=== PATIENT | male | born 1935 | race Caucasian/White ===

== ENCOUNTER → 2018-09-10 08:30 | Outpatient (CLI) | payer MEDICARE, BC, SELFPAY ==
--- NOTE | 2018-09-10 08:35 | US_ITS ---
US aorta HISTORY: ITS.REASON: ABDOMINAL ANEURYSM 30 TO 34 MM COMPARISON: 04/04/2018 FINDINGS: Focal fusiform dilatation involves the mid abdominal aorta at 3.4 cm maximum AP dimension. There is a moderate amount of plaque present. The aorta then tapers to 2 cm and in dilated once again at 2.8 cm. These dimensions are similar when compared to the previous CT scan. The right common iliac is 1.4 cm and the left common iliac is 0.8 cm. Atheromatous plaque is noted. IMPRESSION: Follow lobular fusiform abdominal aortic aneurysm measuring up to 3.6 cm similar to the CT scan of 04/04/2018. Mild dilatation of the right common iliac.
== END ==
PROVIDERS: PCP Family Medicine; Visit Provider Family Medicine
DX: I71.4 Abdominal aortic aneurysm, without rupture (principal)
CPT/HCPCS: 76770

== ENCOUNTER → 2018-11-04 09:30 | Outpatient (CLI) | payer MEDICARE, BC, SELFPAY ==
--- NOTE | 2018-11-04 09:33 | CA_ITS ---
PROCEDURE: 2-D M-mode and color Doppler study INDICATIONS FOR THE TEST: Chest pain COPD Heart Murmur Tobacco Smoking Palpitations Fatigue Syncope Edema Hypertension+Diabetes Mellitus Rheumatic Fever SOB MADDOX Obesity Hyperlipidemia+ Family History HD Additional History STENT, AFIB, AAA, NH PATIENT INFORMATION HEIGHT: 72 WEIGHT:188 GENDER: Male B/P:145/85 2-D/M-MODE INTERPRETATION: 2-D MEASUREMENTS OBSERVED VALUES IN CMS Right Ventricular Dimension (RVDd) 3.7 Interventricular Septum (Thickness)(IVsd) 1.5 Left Ventricular Internal Dimensions(LVIDd) 3.3 Left Ventricular Posterior Wall (Thickness)(LVPWd) 1.0 Aortic Root 3.5 Aortic Cusp Separation 2.1 Left Atrial Dimensions (LAD) 4.2 2D 1. Left atrium is mildly enlarged, left ventricle is normal size, mild concentric left ventricular hypertrophy, visually estimated ejection fraction 45-50%, there is moderate hypokinesis involving the inferobasal and posterobasal wall. 2. The right atrium is moderately enlarged, right ventricle is mildly dilated with normal contractility. 3. The aortic valve is thickened and calcified leaflet continue to display mobility. 4. The mitral and tricuspid valve leaflets are minimally thickened. 5. The pulmonic valve is poorly visualized. 6. No significant pericardial effusion noted. DOPPLER INTERROGATION: Doppler interrogation of the aortic, mitral and tricuspid valvular presence of mild aortic, mild mitral and tricuspid regurgitation, tricuspid regurgitation jet velocity is inadequate for calculation of the right ventricular systolic pressure, diastolic parameters are inconclusive. CONCLUSION: 1. Biatrial enlargement, normal left ventricular size, mild concentric left ventricular hypertrophy, visually estimated ejection fraction of 45-50% with segmental wall motion abnormality described above, diastolic parameters are inconclusive. 2. Mildly enlarged right ventricle with normal contractility. 3. Mild aortic, mild mitral and tricuspid regurgitation 4. No significant pericardial effusion noted.
[2018-11-04 11:19] LABS: Alanine Aminotransferase 44 U/L (12-78); Albumin Level 3.8 gm/dL (3.4-5.0); Alkaline Phosphatase 132 U/L (46-116); Aspartate Amino Transferase 27 U/L (15-37); Bilirubin,Direct 0.2 mg/dL (0.0-0.2); Bilirubin,Indirect 0.8 mg/dL (0.0-0.9); Chol/HDL Ratio 3.5 (1-3.5); Cholesterol 119 mg/dL (140-200); HDL Cholesterol 34 mg/dL (27-67); LDL Cholesterol 60 mg/dL (0-130); Total Protein,Serum 7.1 gm/dL (6.4-8.2); Triglycerides 126 mg/dL (30-200); VLDL Cholesterol 25 mg/dL (0-40)
== END ==
PROVIDERS: PCP Family Medicine; Visit Provider Internal Medicine
DX: I11.9 Hypertensive heart disease without heart failure (principal); I25.10 Atherosclerotic heart disease of native coronary artery without angina pectoris; I48.2 Chronic atrial fibrillation; I71.4 Abdominal aortic aneurysm, without rupture; Z79.01 Long term (current) use of anticoagulants; Z95.5 Presence of coronary angioplasty implant and graft; E78.5 Hyperlipidemia, unspecified
CPT/HCPCS: 36415; 80061; 80076; 93306

== ENCOUNTER → 2019-02-16 08:53 | Outpatient (POV) | payer MEDICARE, BC, SELFPAY | PROVIDERS: Visit Provider Dermatology | DX: Z00.00 Encounter for general adult medical examination without abnormal findings (principal) ==

== ENCOUNTER → 2019-03-16 10:25 | Outpatient (POV) | payer MEDICARE, BC, SELFPAY | PROVIDERS: Visit Provider Dermatology | DX: Z00.00 Encounter for general adult medical examination without abnormal findings (principal) ==

== ENCOUNTER → 2019-09-29 08:08 | Outpatient (CLI) | payer MEDICARE, BC, SELFPAY ==
--- NOTE | 2019-09-29 08:14 | US_ITS ---
PROCEDURE: US AORTA CLINICAL INDICATION: AAA COMPARISON: AORTA US aorta from 09/10/2018 FINDINGS: There is atherosclerosis with aneurysmal dilatation of the abdominal aorta which measures up to 4.3 centimeters in maximum AP dimension at a level approximately 2 centimeters below the xiphoid process. Renal arteries are not demonstrated with certainty on this exam. A moderate amount of atherosclerotic plaque is seen throughout the aorta. The right common iliac artery measures up to 1.5 centimeters and left common iliac 1.6 centimeter. There is no dissection or retroperitoneal hemorrhage. IMPRESSION: 4.3 centimeter abdominal aortic aneurysm without dissection or leakage. This was reported to be 3.6 centimeters on previous exam. Dictated by: Mo Gomez 09/29/2019 09:58 Electronically signed by Mo Gomez in [place] 09/29/2019 09:58
== END ==
PROVIDERS: PCP Family Medicine; Visit Provider Family Medicine
DX: I71.4 Abdominal aortic aneurysm, without rupture (principal)
CPT/HCPCS: 76770

== ENCOUNTER → 2020-03-24 09:22 | Outpatient (CLI) | payer MEDICARE, BC, SELFPAY ==
[2020-03-25 13:01] LABS: Covid-19 Nasal PCR Sendout Lex Not Detected
== END ==
PROVIDERS: PCP Family Medicine; Visit Provider Nurse Practitioner Family
DX: Z03.818 Encounter for observation for suspected exposure to other biological agents ruled out (principal)
CPT/HCPCS: U0004

== ENCOUNTER 2020-03-25 09:38 | Inpatient (IN) | payer MEDICARE, BC, SELFPAY ==
[2020-03-25] VITALS (10 sets, daily range): BP systolic 109–153; BP diastolic 74–93; PULSE 78–130; RESP 16–20; TEMP 36.6–37.7; O2SAT 93–99; BMI 25.1; BMI 24.6
--- NOTE | 2020-03-25 09:44 | XR_ITS ---
PROCEDURE: XR CHEST PORTABLE Patient Age:84Y CLINICAL HISTORY: WEAKNESS Recent covid test pending COMPARISON: CXR CHEST(2 VIEWS-NOT PORTABLE) from 05/28/2014 CXR CHEST(2 VIEWS-NOT PORTABLE) from 03/01/2016 CT HEAD/BRAIN WO CON from 03/25/2020 FINDINGS: Today's AP supine portable CXR is compared to February 2016 CXR. And May 2014 The heart appears slightly larger on this portable study with suggestion of mild cardiomegaly on today's portable CXR. Perhaps subtle vascular engorgement but appears baseline versus 2014. No overt CHF period no pleural effusions. No pneumothorax. Generous hilar regions bilaterally are are likely stable to previous studies but the right gaurav is slightly denser I believe due to technique. I would suggest a follow-up up upright PA and lateral chest to better evaluate. And to better exclude any developing features at the right suprahilar region. Of question possible very subtle infiltrate at the right suprahilar region on this study Chest wall appears stable in satisfactory. player piano technician leads are in place. Added note ER physician question slight increased interstitial pattern but but I suspect this is baseline for this patient with similar appearance 2013 when technique considered. (Also note that today's slightly generous interstitial pattern and vascularity is much less pronounced than on 2016 CXR) IMPRESSION: . Question/suggestion subtle accentuated markings right suprahilar region-possible early infiltrate here. . Also question slightly denser and more generous right gaurav. .Although these features may merely be due to the vessel slag worker portable supine technique today-I would at least suggest a follow-up upright PA and lateral chest to further evaluate. Likely some mild chronic interstitial changes Borderline/mild cardiomegaly also noted Dictated by: Bakari Roberts MD 03/25/2020 15:14 Electronically signed by Bakari Roberts MD in [place] 03/25/2020 15:14
[2020-03-25 10:22] LABS: Basophils % 0.1 % (0.1-2.0); Eosinophils % 0.2 % (0.1-12.0); Hematocrit 38.8 % (42.0-52.0); Hemoglobin 13.4 g/dL (14.1-18.0); Lymphocytes # 0.9 K/mm3 (0.7-4.5); Lymphocytes % 7.5 % (10-50); Mean Corpuscular HGB Conc 34.6 g/dL (31.8-35.4); Mean Corpuscular Hemoglobin 30.3 pg (27.0-31.2); Mean Corpuscular Volume 87.7 fl (80-94); Mean Platelet Volume 8.4 fl (7.4-10.4); Monocytes # 0.7 K/mm3 (0.1-1.0); Monocytes % 5.9 % (1.7-9.3); Neutrophils # 10.7 K/mm3 (1.8-7.8); Neutrophils % 86.3 % (37.0-80.0); Platelet Count 189 K/mm3 (142-424); Red Blood Count 4.43 M/mm3 (4.60-6.20); Red Cell Distribution Width 15.3 % (11.5-17.5); White Blood Count 12.4 K/mm3 (4.8-10.8)
[2020-03-25 10:24] LABS: MANUAL DIFFERENTIAL MANUAL DIFFERENTIAL (MANUAL DIFF)
--- NOTE | 2020-03-25 10:24 | PC.NURSE ---
Rad at bedside
[2020-03-25 10:26] LABS: Chloride 99 mmol/L (98-107); Potassium 3.8 mmoL/L (3.5-5.1); Sodium 135 mmol/L (136-145)
--- NOTE | 2020-03-25 10:26 | HMH.EDGENADL ---
ED Disposition Clinical Impression: Elevated troponin Rhabdomyolysis Qualifiers: Rhabdomyolysis type: traumatic Encounter type: initial encounter Qualified Code(s): T79.6XXA - Traumatic ischemia of muscle, initial encounter Pneumonia Qualifiers: Pneumonia type: due to unspecified organism Laterality: unspecified laterality Lung location: lower lobe of lung Qualified Code(s): J18.9 - Pneumonia, unspecified organism Disposition: Admitted as Observation Condition on Discharge: Fair - Critical Care Critical Care Time: No Attestation: On 03/25/20, the high probability of a clinically significant, sudden or life threatening deterioration of the following system(s) required my full and direct attention, intervention and personal management. The time I documented below is in addition to time spent performing reported procedures but includes the following listed in this critical care notation. Medical Decision Making - Medical Records Medical records reviewed: Yes: I reviewed the patient's medical records. - Danny Inquiry Pt receiving controlled substance: No Vital Signs: 03/25/20 09:38 03/25/20 10:25 03/25/20 10:45 Temperature 99.7 F H Temperature Source Oral Pulse Rate Pulse Rate [Left Radial] 102 H 107 H 107 H Respiratory Rate 18 Blood Pressure Blood Pressure [Right Radial Artery] 141/79 H 141/78 H 149/89 H Blood Pressure Mean [Right Radial Artery] 99 99 109 Blood Pressure Source [Right Radial Artery] Automatic Cuff Automatic Cuff Blood Pressure Position Blood Pressure Position [Right Radial Artery] Sitting Sitting Sitting 02 Sat by Pulse Oximetry 97 97 99 Oxygen Delivery Method Room Air Room Air Room Air 03/25/20 11:07 03/25/20 11:31 03/25/20 13:06 Temperature Temperature Source Pulse Rate Pulse Rate [Left Radial] 106 H 107 H 100 H Respiratory Rate Blood Pressure Blood Pressure [Right Radial Artery] 148/81 H 153/93 H 109/78 L Blood Pressure Mean [Right Radial Artery] 103 113 88 Blood Pressure Source [Right Radial Artery] Automatic Cuff Automatic Cuff Automatic Cuff Blood Pressure Position Blood Pressure Position [Right Radial Artery] Sitting Sitting Sitting 02 Sat by Pulse Oximetry 94 L 93 L 96 Oxygen Delivery Method Room Air Room Air Room Air 03/25/20 15:05 03/25/20 15:06 Temperature 98.3 F 98 F Temperature Source Oral Oral Pulse Rate 78 Pulse Rate [Left Radial] 111 H Respiratory Rate 17 16 Blood Pressure 123/74 Blood Pressure [Right Radial Artery] 120/75 Blood Pressure Mean [Right Radial Artery] 90 Blood Pressure Source [Right Radial Artery] Automatic Cuff Blood Pressure Position Sitting Blood Pressure Position [Right Radial Artery] Supine 02 Sat by Pulse Oximetry 96 Oxygen Delivery Method Room Air Room Air - Lab Data Lab results reviewed: Yes: I reviewed the patient's lab results. Lab Results 03/25/20 10:00: WBC 12.4 H, RBC 4.43 L, Hgb 13.4 L, Hct 38.8 L, MCV 87.7, MCH 30.3, MCHC 34.6, RDW 15.3, Plt Count 189, MPV 8.4, Neut % (Auto) 86.3 H, Lymph % (Auto) 7.5 L, Webb % (Auto) 5.9, Eos % (Auto) 0.2, Baso % (Auto) 0.1, Neut # (Auto) 10.7 H, Lymph # (Auto) 0.9, Webb # (Auto) 0.7, Eos # (Auto) 0.0, Baso # (Auto) 0.0, Total Counted 100, Neutrophils % (Manual) 88 H, Lymphocytes % (Manual) 10, Monocytes % (Manual) 2, Platelet Estimate Normal, RBC Morphology Normal 03/25/20 10:00: Sodium 135 L, Potassium 3.8, Chloride 99, Carbon Dioxide 27, Anion Gap 12.8, BUN 18, Creatinine 1.10, Estimated Creat Clear 60, Estimated GFR 64, Est GFR ( Amer) 78, Glucose 104 H, Calcium 9.0, Total Bilirubin 1.7 H, AST 201 H, ALT 66, Alkaline Phosphatase 119, Total Creatine Kinase 9109 H*, CK-MB (CK-2) 12.8 H*, Troponin I 0.49 H, Total Protein 6.8, Albumin 3.6, Globulin 3.2, Albumin/Globulin Ratio 1.1 03/25/20 10:00: Lactate 1.7 03/25/20 10:00: SARS-CoV-2 IgG Ab (Rapid) Negative, SARS-CoV-2 IgM Ab (Rapid) Negative 03/25/20 11:45: Chlamy pneumoniae PCR Not detected, Adenovirus
[2020-03-25 10:29] LABS: Alanine Aminotransferase 66 U/L (12-78); Alkaline Phosphatase 119 U/L (38-126); Anion Gap 12.8 mEq/L (5-15); Aspartate Amino Transferase 201 U/L (17-59); Bilirubin,Total 1.7 mg/dl (0.2-1.3); Blood Urea Nitrogen 18 mg/dl (9-20); Carbon Dioxide 27 mmol/L (22.0-30.0); Creatinine Clearance Estimated 60 mL/min (50-200); Estimated Glomerular Filt Rate 64 ml/min (>60); GFR (African American) 78 ML/MIN (>60); Glucose 104 mg/dl (74-100)
[2020-03-25 10:30] LABS: Albumin Level 3.6 g/dl (3.5-5.0); Albumin/Globulin Ratio 1.1 (1.1-1.8); Globulin 3.2 g/dL (1.3-3.2); Lactic Acid 1.7 mmol/L (0.7-2.1); Lymphocytes % 10 % (10-50); Monocytes % 2 % (2-9); Neutrophils % 88 % (42-76); Platelet Estimate Normal; RBC Morphology Normal; Total Cells Counted 100; Total Protein,Serum 6.8 g/dl (6.3-8.2)
--- NOTE | 2020-03-25 10:36 | CT_ITS ---
PROCEDURE: CT HEAD/BRAIN WO CON Patient Age:84Y CLINICAL INDICATION: AMS altered mental status. Memory loss. . Extremity weakness. Generalized weakness COMPARISON: No exams were available for comparison TECHNIQUE: No IV contrast. Standard axial images were obtained. All CT scans at the facility use one or more dose reduction, viz: automated exposure control, ma/kV adjustment per patient size (including targeted exams where dose is matched to indication, i.e. head), or iterative reconstruction technique. . FINDINGS: No acute intracranial findings. No intracranial hemorrhage.. There is diffuse low-density periventricular deep white matter which nonspecific but most likely does reflect chronic small vessel deep white-matter ischemic changes. No territorial infarct. Mild dilatation lateral ventricles reflects the mild cerebral atrophy . basal cisterns appear clear and satisfactory. No mass or midline shift nor mass effect. No subdural or extra-axial fluid collection is evident. Posterior fossa unremarkable. Skull intact- calvarium unremarkable appearance.. There is soft tissue swelling in the scalp overlying the intact left calvarium a could reflect recent soft tissue injury or trauma. Warrants clinical correlation, best seen axial slice 30-33 Nomastoid effusions. Mastoid air cells are well developed and clear. Middle ear clear. IAC's symmetric. Nosinus air-fluid level. Visualized portions of the paranasal sinuses unremarkable. IMPRESSION: No acute intracranial findings . No hemorrhage. No subdural collection . Chronic small vessel deep white-matter ischemic gliotic changes but age-appropriate Soft tissue swelling scalp overlying the left calvarium. Warrants clinical correlation Dictated by: Bakari Roberts MD 03/25/2020 14:05 Electronically signed by Bakari Roberts MD in [place] 03/25/2020 14:05
[2020-03-25 10:42] LABS: Troponin I 0.49 ng/ml (0.00-0.034)
[2020-03-25 10:43] LABS: Creatine Kinase MB 12.8 ng/ml (0.0-2.03)
--- NOTE | 2020-03-25 10:44 | PC.NURSE ---
critical lab values called to Tegan Barton RN
--- NOTE | 2020-03-25 10:47 | ECG_ITS ---
APPROVED REPORT Exam: Resting ECG HR:97 bpm ECG Measurements Heart Rate 97 AXES QRSd 92 QRS 86 QT 358 T 48 QTc 454 <Conclusion> Atrial fibrillation Abnormal ECG Electronically signed by : Juan Carlos Marcelino, 03/25/2020 16:50:52
--- NOTE | 2020-03-25 10:48 | PC.NURSE ---
Pt to rad.
[2020-03-25 10:55] LABS: Creatine Kinase 9109 U/L (55-170)
--- NOTE | 2020-03-25 11:00 | PC.NURSE ---
pt resting quietly. pt alert and oriented x 4.
--- NOTE | 2020-03-25 11:07 | PC.NURSE ---
Pt returned from rad.
[2020-03-25 11:22] LABS: Coronavirus 19 IgG Antibody Negative (Negative); Coronavirus 19 IgM Antibody Negative (Negative)
--- NOTE | 2020-03-25 11:32 | PC.NURSE ---
paging dr son
--- NOTE | 2020-03-25 11:50 | PC.NURSE ---
dr dubois paged.
[2020-03-25 11:53] LABS: Adenovirus,PCR Not Detected (NotDetected); Bordetella Pertussis Not Detected (NotDetected); Chlamydophila Pneumoniae, PCR Not Detected (NotDetected); Coronavirus 19, PCR Not Detected (NotDetected); Coronavirus 229E Not Detected (NotDetected); Coronavirus NL63 Not Detected (NotDetected); Coronavirus OC43 Not Detected (NotDetected); Coronovirus HKU1,PCR Not Detected (NotDetected); Human Metapneumovirus Not Detected (NotDetected); Influenza A, PCR Not Detected (NotDetected); Influenza AH1, 2009 Not Detected (NotDetected); Influenza AH1, PCR Not Detected (NotDetected); Influenza AH3,PCR Not Detected (NotDetected); Influenza B, PCR Not Detected (NotDetected); Mycoplasma Pneumoniae, PCR Not Detected (NotDected); Parainfluenza 1, PCR Not Detected (NotDetected); Parainfluenza 2, PCR Not Detected (NotDetected); Parainfluenza 3, PCR Not Detected (NotDetected); Parainfluenza 4, PCR Not Detected (NotDetected); Respiratory Syncytial Virus Not Detected (NotDetected); Rhinovirus/Enterovirus Not Detected (NotDetected)
--- NOTE | 2020-03-25 11:58 | PC.NURSE ---
Ivan returned call.
--- NOTE | 2020-03-25 12:07 | PC.NURSE ---
Pt to be admitted but pending COVID testing.
--- NOTE | 2020-03-25 12:09 | PC.NURSE ---
Per registration pt is a . [facility] will call at this time.
--- NOTE | 2020-03-25 12:46 | PC.NURSE ---
Spoke with [place] national line Reference # [id number]. Per sanforizing machine operator a fax would be sent to us to fill out and send back to them.
--- NOTE | 2020-03-25 14:19 | PC.NURSE ---
Spoke with [place] national hotline again, spoke with Darell who stated that she was able to get an authorization number for pt to be admitted here. Auth # [id number]
[2020-03-25 14:21] LABS: Troponin I 0.37 ng/ml (0.00-0.034)
--- NOTE | 2020-03-25 14:37 | PC.NURSE ---
REPORT CALLED TO FLOOR
--- NOTE | 2020-03-25 15:58 | PC.NURSE ---
pt and family unsure of medications. wrong bottles were brought in by family. jaimie daleD aware and told family to bring other meds in am.
--- NOTE | 2020-03-25 17:31 | PC.NURSE ---
pt has done well since admit to floor. pt is tachy with afib on monitor, pt baseline since arrival to hospital & EKG. pt still feels weak and unsteady on his feet. staff stood pt up to help assist him in a bath and bed change. pt educated on use of call light, verbalized understanding and has shown appropriate use thus far. bed alarm is on. vss. will cont. to monitor.
--- NOTE | 2020-03-25 19:02 | PC.NURSE ---
paged at [phone].
--- NOTE | 2020-03-25 19:11 | HMH.HP ---
*Admission Date: 03/25/20 *Chief complaint: Fall at home with obtundation *History of present illness: 84-year-old white male who was found by his son this morning having fallen at home and was somewhat obtunded. He was brought to the emergency department. Son reports that he was fine over the last couple of days, but has been a little more active recently. In the emergency department he was found to have evidence of rhabdomyolysis with markedly elevated CPK, elevated troponin levels which were felt to be a sequela of the above-noted rhabdomyolysis, and acute kidney injury. He was also found to have evidence of pneumonia with shadowing on chest x-ray but not a definitive test given its portable status. He was admitted for IV fluids, further diagnostic testing, supportive care and IV antibiotics. [facility] History I have reviewed the patient's past medical history: Yes Medical History: Reports:: Atrial Fibrillation, Coronary Artery Disease, Hyperlipidemia, Hypertension, Myocardial Infarction Denies:: Cancer, Diabetes Mellitus Type 1, Diabetes Mellitus Type 2, MRSA *Have you ever received a pneumonia vaccine?: Yes *Have you received a flu vaccine this season?: Yes Other Medical History: Reports: Cataracts Other Surgeries: Yes: Angioplasty, Cancer Surgery, Cardiac Surgery, Coronary Stent, Skin Cancer Excision, Other Amputation: No Fractures: No - *Social History Smoking Status: Former smoker Tobacco Type: cigarettes Alcohol Intake: never Alcohol Intake Frequency:: other Substance Use Type: denies use *Occupational Status:: retired Housing: house Household Members: other *Travel in the last 8 weeks: None Family Hx:: Cancer, Coronary Artery Disease, Heart Attack, Hypertension Review of Systems - Review of Systems Review of systems:: pertinent systems reviewed and negative unless documented below Review of systems is somewhat difficult because of patient's hard of hearing status, but he reports that he feels much better. Still admits to some weakness and dizziness when he stands up. Specifically denies dyspnea, chest pain, palpitations, edema, GI symptomatology or urine symptomatology. - *Neurologic Reports confusion, Denies localized weakness, Denies headache(s) Meds Home Medications Medication Instructions Recorded Confirmed Type levothyroxine 50 mcg capsule 50 mcg PO QDAY cap 10/08/17 03/25/20 History nitroglycerin 0.4 mg sublingual 0.4 mg SUBLINGUAL Q5M PRN 10/08/17 03/25/20 History tablet potassium chloride 20 mEq 20 meq PO QDAY 10/08/17 03/25/20 History tablet,extended release klnxxivrefvo-kmrapfnx-xeavgh 1 tab PO DAILY 04/28/18 03/25/20 History vitamins A,C,Q-jlvl-dswsaa 14,320 1 cap PO DAILY 04/28/18 03/25/20 History unit-226 mg-200 unit capsule loratadine 10 mg tablet 10 mg PO DAILY 10/27/18 03/25/20 History diltiazem HCl 120 mg 120 mg PO DAILY #90 cap 08/30/19 03/25/20 Rx capsule,extended release 24 hr clopidogrel 75 mg tablet 75 mg PO QDAY #90 tab 11/02/19 03/25/20 Rx bisoprolol fumarate 10 mg tablet 10 mg PO QDAY #90 tab 03/20/20 03/25/20 Rx Atorvastatin Calcium [Lipitor 40mg 40 mg PO DAILY 03/25/20 03/25/20 History Tab] Rivaroxaban [Xarelto 20mg Tablet*] 20 mg PO .with supper 03/25/20 03/25/20 History Allergies Allergy/AdvReac Type Severity Reaction Status Date / Time No Known Allergies Allergy Verified 10/27/19 09:51 Exam Vital signs and Labs for Last 24 Hours: Temp Pulse Resp BP Pulse Ox 98 F 100 H 16 123/74 96 03/25/20 15:06 03/25/20 16:00 03/25/20 15:06 03/25/20 15:06 03/25/20 15:05 Laboratory Results - last 24 hr 03/25/20 10:00: WBC 12.4 H, RBC 4.43 L, Hgb 13.4 L, Hct 38.8 L, MCV 87.7, MCH 30.3, MCHC 34.6, RDW 15.3, Plt Count 189, MPV 8.4, Neut % (Auto) 86.3 H, Lymph % (Auto) 7.5 L, Scre[place] % (Auto) 5.9, Eos % (Auto) 0.2, Baso % (Auto) 0.1, Neut # (Auto) 10.7 H, Lymph # (Auto) 0.9, Screven # (Auto) 0.7, Eos # (Auto) 0.0, Baso # (Auto) 0.0, Total Counted 100, Ne
[2020-03-26] VITALS (11 sets, daily range): BP systolic 136–158; BP diastolic 80–87; PULSE 66–136; RESP 17–21; TEMP 36.8–37.7; O2SAT 90–97; BMI 25.1
--- NOTE | 2020-03-26 02:08 | PC.NURSE ---
He is A&Ox3. Atrial fibrillation on telemetry. He has 2 hearing aids and glasses on his bedside table. He is [place]. He refused a snack. He refused a bath stating that he had one on day shift. Denies pain. Denies SPA. He reports that he can walk but states he loses his balance. He has not been out of bed. His urine is lisa, cloudy. He voids per urinal. Urine sent to lab.
[2020-03-26 02:18] LABS: Microscopic, Urine URINE MICROSCOPIC (MICROSCOPIC)
[2020-03-26 02:21] LABS: Appearance,Urine CLOUDY (Clear); Bilirubin,Urine Negative (Negative); Blood, Urine 3+ (Negative); Color,Urine YELLOW (Yellow); Glucose,Urine (UA) Negative (Negative); Ketones,Urine TRACE (Negative); Leukocyte Esterase,Urine Negative (Negative); Nitrate,Urine Negative (Negative); PH,Urine 5.5 (5.0-8.5); Protein,Urine 2+ (Negative); Specific Gravity, Urine >= 1.030 (1.005-1.030); Urobilinogen,Urine 0.2 EU/dl (0.2)
[2020-03-26 02:24] LABS: Amorphous Sediment,Urine 2+ /lpf; Fine Granular Casts,Urine Occasional #/lpf (0); RBC,Urine 20-50 #/hpf (0-3); Uric Acid Crystals,Urine 2+ /lpf
[2020-03-26 06:18] LABS: Hematocrit 35.5 % (42.0-52.0); Lymphocytes % 9.2 % (10-50); Mean Corpuscular HGB Conc 32.6 g/dL (31.8-35.4); Mean Corpuscular Hemoglobin 29.6 pg (27.0-31.2); Mean Corpuscular Volume 90.6 fl (80-94); Mean Platelet Volume 8.4 fl (7.4-10.4); Monocytes # 0.5 K/mm3 (0.1-1.0); Monocytes % 4.7 % (1.7-9.3); Neutrophils # 8.8 K/mm3 (1.8-7.8); Platelet Count 161 K/mm3 (142-424); Red Blood Count 3.92 M/mm3 (4.60-6.20); Red Cell Distribution Width 15.5 % (11.5-17.5); White Blood Count 10.3 K/mm3 (4.8-10.8)
[2020-03-26 06:19] LABS: Hemoglobin 11.6 g/dL (14.1-18.0)
[2020-03-26 06:20] LABS: MANUAL DIFFERENTIAL MANUAL DIFFERENTIAL (MANUAL DIFF)
[2020-03-26 06:36] LABS: Lymphocytes % 5 % (10-50); Monocytes % 1 % (2-9); Neutrophils % 85 % (42-76); Platelet Estimate Normal; RBC Morphology Normal; Rouleaux 2+; Total Cells Counted 100
[2020-03-26 06:38] LABS: Alanine Aminotransferase 81 U/L (12-78); Albumin Level 2.7 g/dl (3.5-5.0); Alkaline Phosphatase 126 U/L (38-126); Aspartate Amino Transferase 205 U/L (17-59); Bilirubin,Total 1.1 mg/dl (0.2-1.3); Blood Urea Nitrogen 19 mg/dl (9-20); Carbon Dioxide 24 mmol/L (22.0-30.0); Chloride 104 mmol/L (98-107); Creatinine Clearance Estimated 68 mL/min (50-200); Estimated Glomerular Filt Rate 93 ml/min (>60); GFR (African American) 112 ML/MIN (>60); Globulin 2.6 g/dL (1.3-3.2); Glucose 108 mg/dl (74-100); Sodium 135 mmol/L (136-145); Total Protein,Serum 5.3 g/dl (6.3-8.2)
[2020-03-26 06:41] LABS: Anion Gap 10.4 mEq/L (5-15); Potassium 3.4 mmoL/L (3.5-5.1)
[2020-03-26 06:48] LABS: Creatine Kinase MB 5.1 ng/ml (0.0-2.03)
[2020-03-26 06:52] LABS: Troponin I 0.15 ng/ml (0.00-0.034)
--- NOTE | 2020-03-26 07:00 | XR_ITS ---
PROCEDURE: XR CHEST 2V CLINICAL HISTORY: f/u portable exam COMPARISON: CXR CHEST(2 VIEWS-NOT PORTABLE) from 05/28/2014 CXR CHEST(2 VIEWS-NOT PORTABLE) from 03/01/2016 XR CHEST PORTABLE from 03/25/2020 FINDINGS: The lung tate are fairly well expanded. There is an ill-defined opacity in the right infrahilar region extending into the right lower lobe primarily posterior basilar segment consistent with acute pneumonia. There are some subtle nodular opacities in the left infrahilar region and left lower lobe. There is blunting of the right costophrenic angle and I suspect a small right pleural effusion. There is mild generalized cardiomegaly but there is no obvious pulmonary congestion. IMPRESSION: New finding of right infrahilar right lower lobe pneumonia with questionable left lower lobe involvement. Generalized cardiomegaly without obvious congestive failure identified. Dictated by: Dr. Andrew Cuevas MD 03/26/2020 09:[address] Andrew Cuevas MD in [place] 03/26/2020 09:13
[2020-03-26 07:05] LABS: Calcium 7.7 mg/dl (8.4-10.2)
[2020-03-26 07:39] LABS: CKMB Relative Index 0.1 U/L (0-4.0); Creatine Kinase 5738 U/L (55-170)
--- NOTE | 2020-03-26 07:58 | HMH.ACPN2 ---
Internal Medicine - PN: Subj *Date: 03/26/20 *Time: 07:58 Interval history: Patient states that he feels much better and my strength is coming back. Exam Vital signs and Labs for Last 24 Hours: Temp Pulse Resp BP Pulse Ox 98.5 F 116 H 20 136/84 90 L 03/26/20 04:45 03/26/20 04:45 03/26/20 04:45 03/26/20 04:45 03/26/20 04:45 Laboratory Results - last 24 hr 03/25/20 10:00: WBC 12.4 H, RBC 4.43 L, Hgb 13.4 L, Hct 38.8 L, MCV 87.7, MCH 30.3, MCHC 34.6, RDW 15.3, Plt Count 189, MPV 8.4, Neut % (Auto) 86.3 H, Lymph % (Auto) 7.5 L, Crisp % (Auto) 5.9, Eos % (Auto) 0.2, Baso % (Auto) 0.1, Neut # (Auto) 10.7 H, Lymph # (Auto) 0.9, Crisp # (Auto) 0.7, Eos # (Auto) 0.0, Baso # (Auto) 0.0, Total Counted 100, Neutrophils % (Manual) 88 H, Lymphocytes % (Manual) 10, Monocytes % (Manual) 2, Platelet Estimate Normal, RBC Morphology Normal 03/25/20 10:00: Sodium 135 L, Potassium 3.8, Chloride 99, Carbon Dioxide 27, Anion Gap 12.8, BUN 18, Creatinine 1.10, Estimated Creat Clear 60, Estimated GFR 64, Est GFR ( Amer) 78, Glucose 104 H, Calcium 9.0, Total Bilirubin 1.7 H, AST 201 H, ALT 66, Alkaline Phosphatase 119, Total Creatine Kinase 9109 H*, CK-MB (CK-2) 12.8 H*, Troponin I 0.49 H, Total Protein 6.8, Albumin 3.6, Globulin 3.2, Albumin/Globulin Ratio 1.1 03/25/20 10:00: Lactate 1.7 03/25/20 10:00: SARS-CoV-2 IgG Ab (Rapid) Negative, SARS-CoV-2 IgM Ab (Rapid) Negative 03/25/20 11:45: Chlamy pneumoniae PCR Not detected, Adenovirus (PCR) Not detected, B. pertussis DNA (PCR) Not detected, Coronavirus OC43 (PCR) Not detected, Coronavirus HKU1 (PCR) Not detected, Coronavirus 229E (PCR) Not detected, COVID-19 PCR Not detected, Coronavirus NL63 (PCR) Not detected, Human Metapneumovir PCR Not detected, Influenza A (H1) PCR Not detected, Influ A (H1N1/09) PCR Not detected, Influenza A (H3) PCR Not detected, Influenza Type A (PCR) Not detected, Influenza Type B (PCR) Not detected, M. pneumoniae (PCR) Not detected, Parainfluenza 1 (PCR) Not detected, Parainfluenza 2 (PCR) Not detected, Parainfluenza 3 (PCR) Not detected, Parainfluenza 4 (PCR) Not detected, RSV (PCR) Not detected, Entero/Rhino (PCR) Not detected 03/25/20 13:44: Troponin I 0.37 H 03/25/20 20:28: Urine Color Yellow, Urine Appearance Cloudy, Urine pH 5.5, Ur Specific [place] >= 1.030, Urine Protein 2+, Urine Glucose (UA) Negative, Urine Ketones Trace, Urine Blood 3+, Urine Nitrate Negative, Urine Bilirubin Negative, Urine Urobilinogen 0.2, Ur Leukocyte Esterase Negative, Urine RBC 20-50, Uric Acid Crystals 2+, Amorphous Sediment 2+, Fine Granular Casts Occasional, Coarse Granular Casts 5-10 03/26/20 05:50: WBC 10.3, RBC 3.92 L, Hgb 11.6 L D, Hct 35.5 L, MCV 90.6, MCH 29.6, MCHC 32.6, RDW 15.5, Plt Count 161, MPV 8.4, Neut % (Auto) 86.0 H, Lymph % (Auto) 9.2 L, Crisp % (Auto) 4.7, Eos % (Auto) 0.0 L, Baso % (Auto) 0.0 L, Neut # (Auto) 8.8 H, Lymph # (Auto) 1.0, Crisp # (Auto) 0.5, Eos # (Auto) 0.0, Baso # (Auto) 0.0, Total Counted 100, Neutrophils % (Manual) 85 H, Band Neutrophils % 9.0 H, Lymphocytes % (Manual) 5 L, Monocytes % (Manual) 1 L, Platelet Estimate Normal, RBC Morphology Normal, Rouleaux 2+ 03/26/20 05:50: Sodium 135 L, Potassium 3.4 L, Chloride 104, Carbon Dioxide 24, Anion Gap 10.4, BUN 19, Creatinine 0.80 D, Estimated Creat Clear 68, Estimated GFR 93, Est GFR ( Amer) 112 D, Glucose 108 H, Calcium 7.7 L D, Total Bilirubin 1.1, AST 205 H, ALT 81 H, Alkaline Phosphatase 126, Total Creatine Kinase 5738 H* D, CK-MB (CK-2) 5.1 H D, CK-MB (CK-2) Rel Index 0.1, Troponin I 0.15 H, Total Protein 5.3 L, Albumin 2.7 L D, Globulin 2.6, Albumin/Globulin Ratio 1.0 L I & O for Last 24 hours: Intake & Output 03/23/20 03/24/20 03/25/20 03/26/20 11:59 11:59 11:59 11:59 Intake Total 3134 / 3134 Output Total 715 / 715 Balance 2419 / 2419 Weight 180 lb 185 lb 9.6 oz Narrative: Pleasant, alert, eating breakfast well. Has some audible expiratory wheezes, new since last night, how
--- NOTE | 2020-03-26 11:31 | HMH.PTEV ---
Physical Therapy Evaluation Rehab PT IP Evaluation Start: 03/26/20 07:57 Freq: ONCE Status: Active Protocol: Document 03/26/20 11:09 [email or web address] (Rec: 03/26/20 11:31 [email or web address] [id number]) Subjective/History History History Pt.'s son(Abdias) was present during Physical Therapy IP evaluation, pt.'s son helped vocalized answers to questions asked by PT d/t auditory impairment. Pt. is a 84 year old male w/ complaints of wheezing since being admitted to the ER. Pt. reports being found by son after lying on the floor of his house for 12 hours prior to ER admittance. Pt. reports he got on his floor to look for his hearing aid, but states he was too weak to stand back up. Pt. reports living alone in a 1- story home(w/ assistance of his two children that live close by), independent w/ ADLs , and walking 2 miles everyday prior to ER admittance. Pt. denies owning AD including FWW , SPC, shower/toilet chair, and denies having steps on the inside, but reports having stairs off the back deck outside. PMH inludes angioplasty, cancer surgery, cardiac surgery, coronary stent, skin cancer excision, atrial fibrillation, coronary artery disease, hyperlipidemia , hypertension, and a myocardial Infarction. See history/physical progress note for current list of medication. Subjective Subjective Pt. states I've been feeling a lot better. Pt. also reports no complaints of P!, but states I've been wheezing a lot. Rehab PT IP Eval Objective Appearance Patient Behavior Appropriate,Cooperative, Anxious,Fatigued P
--- NOTE | 2020-03-26 11:37 | P.CONPHA_ITS ---
[facility] Pharmacy VTE Monitoring - Patient Demographics Admission date: 03/26/20 Report Date: 03/26/20 Time: 11:37 Allergies/Adverse Reactions: Patient Allergies No Known Allergies Allergy (Verified 10/27/19 09:51) Height: 1.83 m Weight: 84.187 kg Patient Problems: Current Active Problems Rhabdomyolysis (Acute) Elevated troponin (Acute) Pneumonia (Acute) Wheezing (Acute) Fall at home (Acute) - VTE Risk Labs: VTE Related Lab Results Hgb 11.6 g/dL (14.1-18.0) L D 03/26/20 05:50 Hct 35.5 % (42.0-52.0) L 03/26/20 05:50 Plt Count 161 K/mm3 (142-424) 03/26/20 05:50 BUN 19 mg/dl (9-20) 03/26/20 05:50 Creatinine 0.80 mg/dl (0.66-1.25) D 03/26/20 05:50 Estimated Creat Clear 68 mL/min (50-200) 03/26/20 05:50 VTE Score: 5 VTE Risk Level: Low Risk - Prophylaxis Types of VTE Prophylaxis: Pharmacological (XARELTO REORDERED) Location of Applied Device: Not Applicable
[2020-03-27] VITALS (10 sets, daily range): BP systolic 123–149; BP diastolic 61–100; PULSE 84–114; RESP 16–18; TEMP 36.5–37; O2SAT 90–94; BMI 25.9
--- NOTE | 2020-03-27 03:51 | PC.NURSE ---
A&OX3. NAVAJO. STOCK BROKER EQUAL BILAT. LUNGS NOTED WITH WHEEZING PER AUSCULTATION. DRY COUGH NOTED THIS SHIFT. TOLERATED RA WELL. PULSES +2, CAP REFILL < 3 SEC. AFIB NOTED PER TITLE DEPARTMENT MANAGER. TYLENOL ADMINISTERED PER NOV TEMP NOTED 99.3 AND TACHYCARDIA AT BEGINNING OF SHIFT. ON REASSESSMENT TEMP DECREASED TO WNL AND HR WNL. ABDOMEN NOTED NONDISTENDED, ACTIVE BOWEL SOUNDS IN ALL QUADS, SOFT AND NONTENDER PER PALPATION. ASSIST X1 WITH AMBULATION/ TRANSFERS, TOLERATED WELL. PT REPORTED C/O NAUSEA AND ADMINISTERED ZOFRAN PER NOV, WILL REASSESS EFFECTIVENESS OF ZOFRAN. VSS. WILL CONTINUE TO MONITOR.
[2020-03-27 05:57] LABS: Basophils % 0.1 % (0.1-2.0); Eosinophils % 0.1 % (0.1-12.0); Hematocrit 33.3 % (42.0-52.0); Hemoglobin 11.6 g/dL (14.1-18.0); Lymphocytes # 0.9 K/mm3 (0.7-4.5); Lymphocytes % 10.9 % (10-50); Mean Corpuscular HGB Conc 34.7 g/dL (31.8-35.4); Mean Corpuscular Hemoglobin 29.8 pg (27.0-31.2); Mean Corpuscular Volume 85.7 fl (80-94); Mean Platelet Volume 8.5 fl (7.4-10.4); Monocytes # 0.5 K/mm3 (0.1-1.0); Monocytes % 5.4 % (1.7-9.3); Neutrophils % 83.5 % (37.0-80.0); Platelet Count 164 K/mm3 (142-424); Red Blood Count 3.89 M/mm3 (4.60-6.20); Red Cell Distribution Width 15.6 % (11.5-17.5); White Blood Count 8.4 K/mm3 (4.8-10.8)
[2020-03-27 06:06] LABS: Chloride 105 mmol/L (98-107); Potassium 3.3 mmoL/L (3.5-5.1); Sodium 135 mmol/L (136-145)
[2020-03-27 06:09] LABS: Alanine Aminotransferase 93 U/L (12-78); Alkaline Phosphatase 108 U/L (38-126); Anion Gap 11.3 mEq/L (5-15); Aspartate Amino Transferase 155 U/L (17-59); Bilirubin,Total 0.8 mg/dl (0.2-1.3); Blood Urea Nitrogen 18 mg/dl (9-20); Calcium 7.8 mg/dl (8.4-10.2); Carbon Dioxide 22 mmol/L (22.0-30.0); Creatinine Clearance Estimated 70 mL/min (50-200); Estimated Glomerular Filt Rate 108 ml/min (>60); GFR (African American) 131 ML/MIN (>60); Glucose 115 mg/dl (74-100)
[2020-03-27 06:10] LABS: Albumin Level 2.7 g/dl (3.5-5.0); Globulin 2.8 g/dL (1.3-3.2); Total Protein,Serum 5.5 g/dl (6.3-8.2)
--- NOTE | 2020-03-27 06:17 | PC.NURSE ---
PA. TORRES NOTIFIED OF CONSULT.
[2020-03-27 06:20] LABS: Creatine Kinase 2593 U/L (55-170)
--- NOTE | 2020-03-27 06:40 | PC.NURSE ---
URINE NOTED DARK YELLOW AND CLEAR. VOIDED PER URINAL.
--- NOTE | 2020-03-27 07:20 | P.PN_ITS ---
Internal Medicine - PN: Subj *Date: 03/27/20 *Time: 07:20 Interval history: Patient reports feeling better this morning. He continues to have wheezing and coughing. He denies shortness of breath this morning or chest pain. Nursing staff reports a 6 pound weight gain over the last 24 hours. Exam Vital signs and Labs for Last 24 Hours: Temp Pulse Resp BP Pulse Ox 98.6 F 104 H 18 149/61 H 91 L 03/27/20 04:20 03/27/20 05:51 03/27/20 04:20 03/27/20 04:20 03/27/20 04:20 Laboratory Results - last 24 hr 03/26/20 05:50: Total Creatine Kinase 5738 H* D, CK-MB (CK-2) Rel Index 0.1 03/27/20 05:44: WBC 8.4, RBC 3.89 L, Hgb 11.6 L, Hct 33.3 L, MCV 85.7, MCH 29.8, MCHC 34.7, RDW 15.6, Plt Count 164, MPV 8.5, Neut % (Auto) 83.5 H, Lymph % (Auto) 10.9, Johnson % (Auto) 5.4, Eos % (Auto) 0.1, Baso % (Auto) 0.1, Neut # (Auto) 7.0, Lymph # (Auto) 0.9, Johnson # (Auto) 0.5, Eos # (Auto) 0.0, Baso # (Auto) 0.0 03/27/20 05:44: Sodium 135 L, Potassium 3.3 L, Chloride 105, Carbon Dioxide 22, Anion Gap 11.3, BUN 18, Creatinine 0.70, Estimated Creat Clear 70, Estimated GFR 108, Est GFR ( Amer) 131, Glucose 115 H, Calcium 7.8 L, Total Bilirubin 0.8, AST 155 H, ALT 93 H, Alkaline Phosphatase 108, Total Creatine Kinase 2593 H* D, Total Protein 5.5 L, Albumin 2.7 L, Globulin 2.8, Albumin/Globulin Ratio 1.0 L I & O for Last 24 hours: Intake & Output 03/24/20 03/25/20 03/26/20 03/27/20 11:59 11:59 11:59 11:59 Intake Total 3494 / 3494 1909 / 1909 Output Total 715 / 715 650 / 650 Balance 2779 / 2779 1260 / 1260 Weight 180 lb 185 lb 9.6 oz 191 lb 8 oz Narrative: Patient looks comfortable but has an expiratory wheeze that can be heard standing at bedside. Heart rate is irregular. Lungs have expiratory wheezes and rales in the right base. Abdomen is soft. Assessment and Plan (1) Rhabdomyolysis Current visit: Yes Status: Acute Qualifiers: Rhabdomyolysis type: traumatic Encounter type: initial encounter Qualified Code(s): T79.6XXA - Traumatic ischemia of muscle, initial encounter Category: Medical Code(s): M62.82 - Rhabdomyolysis Continue IV fluids for additional 24 hours (2) Pneumonia Current visit: Yes Status: Acute Qualifiers: Pneumonia type: due to unspecified organism Laterality: unspecified laterality Lung location: lower lobe of lung Qualified Code(s): J18.9 - Pneumonia, unspecified organism Category: Medical Code(s): J18.9 - Pneumonia, unspecified organism Continue IV antibiotics and aerosols (3) Elevated troponin Current visit: Yes Status: Acute Category: Medical Code(s): R79.89 - Other specified abnormal findings of blood chemistry Cardiology consult (4) Chronic atrial fibrillation Current visit: No Status: Acute Category: Medical Code(s): I48.2 - Chronic atrial fibrillation (5) Wheezing Current visit: Yes Status: Acute Category: Medical Code(s): R06.2 - Wheezing (6) Fall at home Current visit: Yes Status: Acute Category: Medical Code(s): W19.XXXA - Unspecified fall, initial encounter; Y92.009 - Unspecified place in unspecified non-institutional (private) residence as the place of occurrence of the external cause
--- NOTE | 2020-03-27 10:33 | HMH.CNCARD ---
History of Present Illness Consult date: 03/27/20 Requesting physician: Juan Carlos Vargas Chief complaint: Weakness Additional Medical History:: 1. HTN A. Echo, 10/2018 1. Left atrium is mildly enlarged, left ventricle is normal size, mild concentric left ventricular hypertrophy, visually estimated ejection fraction 45-50%, there is moderate hypokinesis involving the inferobasal and posterobasal wall. 2. The right atrium is moderately enlarged, right ventricle is mildly dilated with normal contractility. 3. The aortic valve is thickened and calcified leaflet continue to display mobility. 4. The mitral and tricuspid valve leaflets are minimally thickened. 5. The pulmonic valve is poorly visualized. 6. No significant pericardial effusion noted. DOPPLER INTERROGATION: Doppler interrogation of the aortic, mitral and tricuspid valvular presence of mild aortic, mild mitral and tricuspid regurgitation, tricuspid regurgitation jet velocity is inadequate for calculation of the right ventricular systolic pressure, diastolic parameters are inconclusive. CONCLUSION: 1. Biatrial enlargement, normal left ventricular size, mild concentric left ventricular hypertrophy, visually estimated ejection fraction of 45-50% with segmental wall motion abnormality described above, diastolic parameters are inconclusive. 2. Mildly enlarged right ventricle with normal contractility. 3. Mild aortic, mild mitral and tricuspid regurgitation 4. No significant pericardial effusion noted. 2. Coronary artery disease A. Non-ST elevation [place], 02/2016 B. C, 02/2016, ANGIOGRAPHIC RESULTS: 1. The left main artery normal 2. The left anterior descending artery has a critical proximal to mid vessel focal stenosis. KALA II flow down the LAD 3. The circumflex artery is a dominant vessel and has mild 30% proximal mid vessel stenoses. The terminal obtuse marginal artery which supplies the posterior descending artery has sequential 50 and 60% nonflow limiting stenoses 4. The right coronary artery is a small nondominant vessel and normal 5. The WELCH ventriculogram reveals normal ejection fraction 65% 6. The left ventricular end-diastolic pressure less than 10 mmHg IMPRESSION: 1. Critical proximal and mid vessel LAD disease with KALA II flow down the vessel 2. Normal ejection fraction 3. Normal left ventricular end-diastolic pressure 4. Moderate nonflow limiting disease in the terminal obtuse marginal artery supplying the posterior descending artery PLAN: 1. Brilinta and aspirin will be given now 2. Lovenox 1 mg/kg 3. Emergent transfer to [place] for stenting of the LAD today C. LUPE to LAD, 02/2016, [facility], chronic Plavix therapy 3. Chronic atrial fibrillation, on Xarelto therapy 4. Abdominal aortic aneurysm, 4.3 cm, 09/2019, continue to follow per Dr. Velazco at [place], [place] 5. Hyperlipidemia 6. Hypertension History of present illness: 84-year-old white male who was found by his son this morning having fallen at home and was somewhat obtunded. He was brought to the emergency department. Son reports that he was fine over the last couple of days, but has been a little more active recently. In the emergency department he was found to have evidence of rhabdomyolysis with markedly elevated CPK, elevated troponin levels which were felt to be a sequela of the above-noted rhabdomyolysis, and acute kidney injury. He was also found to have evidence of pneumonia with shadowing on chest x-ray but not a definitive test given its portable status. He was admitted for IV fluids, further diagnostic testing, supportive care and IV antibiotics. The above per Dr. Marcelino (covering for Dr. Vargas) Patient relates some shortness of breath last week for which he reports going to Dr. Vargas's office and seeing 1 of his midlevel providers and being started on antibiotics for suspected bronchitis/pneumonia. Patient took the first do
--- NOTE | 2020-03-27 10:52 | CA_ITS ---
APPROVED REPORT EXAM: Comprehensive 2D, Doppler, and color-flow Echocardiogram Sheet Tailer: Estrella Valle RDCS Ht: 5 ft 11 in Wt: 181lbs BSA: 2.02 BP: 149/99 mmHg Indications: AF TX CAD HTN HLP 2D Dimensions LVOT 2.12 cm (M/F) 1.5-2.5 M-Mode Dimensions RVDd 2.77 cm (0.9-2.6) LVDd 5.33 cm (3.5-5.7) LVDs 4.62 cm (3.5-5.7) IVSd 0.99 cm (0.6-1.1) PWd 0.68 cm (0.6-1.1) EF (Teich) 28.30% FS 13.30% EDV (Teich) 137.10 mL ESV (Teich) 98.30 mL Aortic Valve LVOT Max 80.00 (70-110 cm/s) LVOT VTI 12.29 cm Left Ventricle Technically difficult study because of the patient factors and poor acoustic windows. Left atrium is mildly enlarged, left ventricle is normal size, mild concentric left ventricular hypertrophy, visually estimated ejection fraction 50% with no obvious regional wall motion abnormality, endocardial surfaces are poorly visualized. Diastolic parameters are inconclusive. Right Ventricle Right atrium and right ventricle are mildly enlarged with normal contractility. Aortic Valve Aortic valve is thickened and calcified, there is no aortic stenosis, there is mild aortic insufficiency. Mitral Valve Mitral valve is minimally thickened, there is mild mitral regurgitation. Tricuspid Valve Tricuspid valve is grossly normal, there is mild tricuspid regurgitation, calculated right ventricular systolic pressure is 52 mmHg. Pulmonic Valve Pulmonic valve is poorly visualized. Great Vessels Aortic root is normal size. Pericardium No significant pericardial effusion noted. Conclusion 1. Technically difficult study because of the patient's factors and poor acoustic windows. 2. Mild biatrial enlargement, normal left ventricular size, mild concentric left ventricular hypertrophy, visually estimated ejection fraction 50% with no regional wall motion abnormality, diastolic parameters are inconclusive. 3. Thickened and calcified aortic valve without aortic stenosis, there is mild aortic insufficiency. 4. Mildly enlarged right ventricle with normal contractility. 5. Mild mitral and tricuspid regurgitation, calculated right ventricular systolic pressure is 52 mmHg. 6. No significant pericardial effusion noted. Electronically signed by : Thaddeus Hayes, 03/27/2020 19:43:59
--- NOTE | 2020-03-27 13:23 | HMH.OTEV ---
OT Inpatient Evaluation Rehab OT IP Evaluation Start: 03/26/20 07:57 Freq: ONCE Status: Active Protocol: Document 03/27/20 09:43 [email or web address] (Rec: 03/27/20 09:51 [email or web address] [id number]) Rehab OT IP Assessment Subjective History 84 year old male admitted to [facility] on 03/26/20 after being found on the floor by family. Patient stated, not knowing how he got done on the floor. Finding indicate rhabdomyolysis, acute kidney injury and PNA. PMH: A-fib, CAD, HLD, HTN and [place]. Subjective I'm not having any pain. Objective Patient Orientation Person,Place,Time,Name,Age, Birthday,Day of Month,Day of Week,Month,Year,Time of Day, Situation Upper Extremity Gross ROM WNL Bed Mobility bed mobility-scooting,bed mobility - supine/sit,bed mobility - rolling Assist Level Minimal x 1 (25% assist) Transfer Training Sit/Stand/Pivot Transfer Assist Level Contact Guard/Hand Hold Chair Transfer Ability Contact Guard/Hand Hold Chair Transfer Technique Stand Step Pivot Chair Transfer Assistive Devices Rolling Walker Feeding Ability Independent Rehab OT IP prob,goals,plan Problems Date of Evaluation: 03/27/20 OT IP Problems Bed Mobility,Transfers,Balance ,Self care,Safety Rehab Potential Rehab Potential Good Equipment Needs Assistive Devices Rolling / Wheeled Walker Plan OT intervention Plan Bed Mobility,Transfers,Balance ,Self care,Therapeutic Exercise OT Plan Frequency Daily Duration LOS Discharge Goals Bed Mobility Ability Standby Assistance Sit to Stand Chair Transfer Ability Supervision/Stand by Chair Transfer Ability Supervision/Stand by Chair Transfer Technique Sit to/from Ambulatory Chair Transfer Assistive Devices Rolling Walker Self care skills dressing/undressing independently Feeding Ability Independent Lower Body Dressing Ability Standby Assistance Upper Body Dressing Ability Standby Assistance Bathing Ability Assistance x1 Performing Toilet Hygiene Ability Standby Assistance Overall Commode/Toilet Transfer Ability Assistance x1 Commode/Toilet Transfer Technique Sit to/from Ambulatory Commode
--- NOTE | 2020-03-27 16:43 | PC.NURSE ---
PT HAS BEEN AO*3 T/O SHIFT, NO COMPLAINTS OF SOA OR PAIN NOTED, PT WAS UP TO CHAIR FOR MOST OF DAY, TOLERATED AMBULATION WELL TO RR WITH 1 ASSIST, PT O2 HAS BEEN >93 T/O SHIFT ON ROOM AIR, WHEEZES NOTED THIS A.M. BUT IMPROVED T/O DAY, VSS, WILL CONTINUE TO MONITOR.
--- NOTE | 2020-03-27 19:10 | PC.NURSE ---
report given to allan
[2020-03-28] VITALS (10 sets, daily range): BP systolic 114–147; BP diastolic 64–96; PULSE 80–138; RESP 17–20; TEMP 36.6–36.9; O2SAT 90–96; BMI 25.9
--- NOTE | 2020-03-28 05:22 | PC.NURSE ---
Pt very [place]. Pt slept in long intervals. Lungs clear at start of shift but have developed expiratory wheezes and rhonchi that clear w/ cough. Pt educated on use of IS as well as turn,cough,deep breathing exercises. IS teaching needs reinforcement. Pt able to pull about 500 on IS. Intermittent non-productive cough noted. Tele monitor showing controlled AFib. No complaints reported to staff. Pt voiding clear, dark yellow urine via urinal independently. Assist x1 when ambulating. Tolerating RA.
--- NOTE | 2020-03-28 07:28 | HMH.ACPN2 ---
Internal Medicine - PN: Subj *Date: 03/28/20 *Time: 07:28 Interval history: Patient complains of rattling in his chest this morning. He does not necessarily feel more short of breath than yesterday. His cough is productive of mostly clear sputum. Exam Vital signs and Labs for Last 24 Hours: Temp Pulse Resp BP Pulse Ox 98.4 F 107 H 19 147/87 H 90 L 03/28/20 03:49 03/28/20 05:52 03/28/20 03:49 03/28/20 03:49 03/28/20 03:49 I & O for Last 24 hours: Intake & Output 03/25/20 03/26/20 03/27/20 03/28/20 11:59 11:59 11:59 11:59 Intake Total 3494 / 3494 2030 / 2030 3037 / 3037 Output Total 715 / 715 650 / 650 1600 / 1600 Balance 2779 / 2779 1380 / 1380 1437 / 1437 Weight 180 lb 185 lb 9.6 oz 191 lb 8 oz 191 lb 6.132 oz Microbiology Reports for the Last 24 Hours: Microbiology 03/25/20 10:00 Blood Blood Culture - Preliminary NO GROWTH AFTER 48 HOURS 03/25/20 10:00 Blood Blood Culture - Preliminary NO GROWTH AFTER 48 HOURS Narrative: Patient looks comfortable and shows no signs of respiratory distress. Lungs I have expiratory rhonchi throughout but most prominent posteriorly. Heart rate is irregular. Lower extremities have no edema. Assessment and Plan (1) Pneumonia Current visit: Yes Status: Acute Qualifiers: Pneumonia type: due to unspecified organism Laterality: unspecified laterality Lung location: lower lobe of lung Qualified Code(s): J18.9 - Pneumonia, unspecified organism Category: Medical Code(s): J18.9 - Pneumonia, unspecified organism Continue IV antibiotics. Continue incentive spirometer. Increase ambulation (2) Rhabdomyolysis Current visit: Yes Status: Acute Qualifiers: Rhabdomyolysis type: traumatic Encounter type: initial encounter Qualified Code(s): T79.6XXA - Traumatic ischemia of muscle, initial encounter Category: Medical Code(s): M62.82 - Rhabdomyolysis (3) Elevated troponin Current visit: Yes Status: Acute Category: Medical Code(s): R79.89 - Other specified abnormal findings of blood chemistry (4) Chronic atrial fibrillation Current visit: No Status: Acute Category: Medical Code(s): I48.2 - Chronic atrial fibrillation (5) Wheezing Current visit: Yes Status: Acute Category: Medical Code(s): R06.2 - Wheezing (6) Fall at home Current visit: Yes Status: Acute Category: Medical Code(s): W19.XXXA - Unspecified fall, initial encounter; Y92.009 - Unspecified place in unspecified non-institutional (private) residence as the place of occurrence of the external cause - Assessment and plan all Dx Assessment and Plan for all problems:: Patient is fluid overloaded this morning and he is going to be given Lasix this morning and this evening. Reassess in the morning. Patient has been encouraged to ambulate as much as possible. IV fluids will be discontinued
--- NOTE | 2020-03-28 09:07 | P.PN_ITS ---
Subjective Date: 03/28/20 Time: 09:07 Principal diagnosis: Rhabdomyolysis, elevated troponins Interval history: 84-year-old white male in bedside chair in no acute distress. Patient denies any chest pain, pressure or tightness. He has some shortness of breath and stat es my pipes are rattling. IV fluids have been decreased and patient has been started on IV Lasix this morning. Exam Vital signs and Labs for Last 24 Hours: Temp Pulse Resp BP Pulse Ox 98.2 F 119 H 20 137/96 H 92 L 03/28/20 08:00 03/28/20 08:00 03/28/20 08:00 03/28/20 08:00 03/28/20 08:00 I & O for Last 24 hours: Intake & Output 03/25/20 03/26/20 03/27/20 03/28/20 11:59 11:59 11:59 11:59 Intake Total 3494 / 3494 2030 / 2030 3397 / 3397 Output Total 715 / 715 650 / 650 1700 / 1700 Balance 2779 / 2779 1380 / 1380 1697 / 1697 Weight 180 lb 185 lb 9.6 oz 191 lb 8 oz 191 lb 6.132 oz Microbiology Reports for the Last 24 Hours: Microbiology 03/25/20 10:00 Blood Blood Culture - Preliminary NO GROWTH AFTER 48 HOURS 03/25/20 10:00 Blood Blood Culture - Preliminary NO GROWTH AFTER 48 HOURS - *Routine HEENT Exam Head: Present: normocephalic Eye: Present: EOMI, PERRL ENT: Present: mucous membranes moist - *Routine Respiratory Exam Present: rhonchi, diminished air movement. Absent: accessory muscle use, rales, wheezes - *Routine Cardiovascular Exam Present: irregularly irregular. Absent: murmur, gallop, rubs - *Routine Extremities Exam Absent: edema, calf tenderness - *Routine Neurological Exam Present: alert, oriented X3, moving all extremities Progress Note: A&P (1) Pneumonia Status: Acute Current Visit: Yes (2) Rhabdomyolysis Status: Acute Current Visit: Yes (3) Elevated troponin Status: Acute Current Visit: Yes (4) Chronic atrial fibrillation Status: Acute Current Visit: No (5) Wheezing Status: Acute Current Visit: Yes (6) Fall at home Status: Acute Current Visit: Yes Assessment and Plan for All Diagnoses:: 1. Rhabdomyolysis, corrected with IV fluids. Currently with some mild IV fluid overload which is being corrected with reduction in IV fluids and IV Lasix institution. 2. Elevated troponin felt secondary to #1, echocardiogram shows no change in ejection fraction compared to previous study. No further intervention at this time. 3. Chronic atrial fibrillation, continue rivaroxaban therapy. Rate has traditionally been controlled on combination of beta-keith and diltiazem therapy. Elevated at this time due to clinical issues including pneumonia. 4. History of coronary artery disease, continue Plavix therapy. Clinically stable at this time. 5. Pneumonia, continue antibiotic therapy. Nothing further to add from a cardiac standpoint. We would like to see the patient in the office in 2 to 3 weeks after discharge.
--- NOTE | 2020-03-28 17:24 | PC.NURSE ---
PT HAS BEEN SITTING UP IN THE CHAIR ALL SHIFT. AMBULATED AROUND THE ROOM AND IN THE RODGERS. RESPONDING WELL TO LASIX. PT STATES HE IS NOT ABLE TO COUGH ANYTHING UP. EATING AND DRINKING FAIR. LUNG SOUNDS DIMINISHED WITH SCATTERED RHONCHI. LUNG SOUNDS HAVE IMPROVED SINCE THIS MORNING. ABDOMEN SOFT/NON TENDER WITH NORMAL BOWEL SOUNDS. AFIB ON THE MONITOR. VSS. EATING AND DRINKING FAIR. WILL CONTINUE TO MONITOR.
--- NOTE | 2020-03-28 21:05 | PC.NURSE ---
RT administered saline 3% to try to induce cough for sputum, pt was still unable to cough up any sputum at this time. Cup was left by RT in pt room in case he produced any sputum over night.
[2020-03-29] VITALS: BP 129/75; PULSE 100; PULSE 94; RESP 16; TEMP 36.6; O2SAT 93
[2020-03-29 04:00] VITALS: BP 126/68; PULSE 80; PULSE 90; RESP 16; TEMP 36.6; O2SAT 93
--- NOTE | 2020-03-29 04:15 | PC.NURSE ---
A&OX4. pt denies any pain or SOA lungs sounds diminished in bases, pt on RA O2 sats 93% pt has ambulated to bathroom with standby assistance. pt has rested quietly this shift
[2020-03-29 05:35] VITALS: BMI 25.9
[2020-03-29 06:01] VITALS: PULSE 93
[2020-03-29 07:33] LABS: Chloride 97 mmol/L (98-107); Sodium 137 mmol/L (136-145)
[2020-03-29 07:35] LABS: Blood Urea Nitrogen 22 mg/dl (9-20); Creatinine Clearance Estimated 70 mL/min (50-200); Estimated Glomerular Filt Rate 93 ml/min (>60); GFR (African American) 112 ML/MIN (>60)
[2020-03-29 07:36] LABS: Calcium 8.4 mg/dl (8.4-10.2); Carbon Dioxide 32 mmol/L (22.0-30.0); Creatine Kinase 501 U/L (55-170); Glucose 107 mg/dl (74-100)
[2020-03-29 07:39] LABS: Potassium 2.9 mmoL/L (3.5-5.1)
[2020-03-29 07:40] LABS: Anion Gap 10.9 mEq/L (5-15)
[2020-03-29 08:00] VITALS: BP 157/82; PULSE 111; RESP 19; TEMP 36.5; O2SAT 92
--- NOTE | 2020-03-29 08:25 | HMH.ACPN2 ---
Internal Medicine - PN: Subj *Date: 03/29/20 *Time: 08:25 Interval history: Patient reports feeling better this morning. He denies shortness of breath. He has persistent cough that is nonproductive. He denies chest pain. He has been ambulating in his room without difficulty. Patient admits he feels strong enough to go home and his son reports that family will be with him for the first few days from discharge Exam Vital signs and Labs for Last 24 Hours: Temp Pulse Resp BP Pulse Ox 97.9 F 93 H 16 126/68 93 L 03/29/20 04:00 03/29/20 06:01 03/29/20 04:00 03/29/20 04:00 03/29/20 04:00 Laboratory Results - last 24 hr 03/29/20 06:55: Sodium 137, Potassium 2.9 L*, Chloride 97 L, Carbon Dioxide 32 H D, Anion Gap 10.9, BUN 22 H, Creatinine 0.80, Estimated Creat Clear 70, Estimated GFR 93, Est GFR ( Amer) 112, Glucose 107 H, Calcium 8.4, Total Creatine Kinase 501 H* D I & O for Last 24 hours: Intake & Output 03/26/20 03/27/20 03/28/20 03/29/20 11:59 11:59 11:59 11:59 Intake Total 3494 / 3494 2029 / 2029 3397 / 3397 480 / 480 Output Total 715 / 715 650 / 650 1999 / 1999 3900 / 3900 Balance 2779 / 2779 1380 / 1380 1397 / 1397 -3420 / -3420 Weight 185 lb 9.6 oz 191 lb 8 oz 191 lb 6.132 oz 191 lb 5.78 oz Narrative: Patient looks comfortable and shows no signs of respiratory distress. Patient has rales in the left lung base with diminished breath sounds in the right. Fair aeration otherwise. Heart rate is irregularly irregular Assessment and Plan (1) Pneumonia Current visit: Yes Status: Acute Qualifiers: Pneumonia type: due to unspecified organism Laterality: unspecified laterality Lung location: lower lobe of lung Qualified Code(s): J18.9 - Pneumonia, unspecified organism Category: Medical Code(s): J18.9 - Pneumonia, unspecified organism (2) Rhabdomyolysis Current visit: Yes Status: Acute Qualifiers: Rhabdomyolysis type: traumatic Encounter type: initial encounter Qualified Code(s): T79.6XXA - Traumatic ischemia of muscle, initial encounter Category: Medical Code(s): M62.82 - Rhabdomyolysis (3) Elevated troponin Current visit: Yes Status: Acute Category: Medical Code(s): R79.89 - Other specified abnormal findings of blood chemistry (4) Chronic atrial fibrillation Current visit: No Status: Acute Category: Medical Code(s): I48.2 - Chronic atrial fibrillation (5) Wheezing Current visit: Yes Status: Acute Category: Medical Code(s): R06.2 - Wheezing (6) Fall at home Current visit: Yes Status: Acute Category: Medical Code(s): W19.XXXA - Unspecified fall, initial encounter; Y92.009 - Unspecified place in unspecified non-institutional (private) residence as the place of occurrence of the external cause - Assessment and plan all Dx Assessment and Plan for all problems:: 1. Patient will be discharged home today. He will finish a course of antibiotics. He will use Lasix for a few additional days and will follow-up in my office on Friday
--- NOTE | 2020-03-29 08:28 | HMH.DCSUM ---
General - General Admission date:: 03/25/20 Discharge date: 03/29/20 HPI HPI: 84-year-old white male who was found by his son this morning having fallen at home and was somewhat obtunded. He was brought to the emergency department. Son reports that he was fine over the last couple of days, but has been a little more active recently. In the emergency department he was found to have evidence of rhabdomyolysis with markedly elevated CPK, elevated troponin levels which were felt to be a sequela of the above-noted rhabdomyolysis, and acute kidney injury. He was also found to have evidence of pneumonia with shadowing on chest x-ray but not a definitive test given its portable status. He was admitted for IV fluids, further diagnostic testing, supportive care and IV antibiotics. Hospital Course Hospital Course: Patient was admitted and started on IV fluids for his rhabdomyolysis. Creatinine kinase was checked daily and trended down during hospitalization. Renal function was monitored closely. Patient did not develop any kidney injury. Patient had clinical symptoms of pneumonia on presentation and was started on IV antibiotics of Rocephin and azithromycin. Patient did have a nonproductive cough during hospitalization. He will continue antibiotics at discharge Patient has chronic atrial fibrillation and once his blood pressure is normalized his bisoprolol and diltiazem were continued. Anticoagulant was continued Patient became fluid overloaded from the large volume of IV fluids he received for his rhabdomyolysis and required diuresis with IV Lasix. Patient was diuresed on March 28 with excellent response. However this caused hypokalemia. Patient was started on oral potassium supplement which he also takes at home. He received 40 mEq in the morning and afternoon on the day of discharge and will continue his home dose of 20 mEq of potassium chloride twice daily until follow-up. Patient had elevated troponin on admission which was felt to be connected to his rhabdomyolysis. Cardiology was consulted. Echocardiogram was performed which showed a normal ejection fraction. No further interventions were planned Objective Vital signs: Temp Pulse Resp BP Pulse Ox 97.9 F 93 H 16 126/68 93 L 03/29/20 04:00 03/29/20 06:01 03/29/20 04:00 03/29/20 04:00 03/29/20 04:00 Results Labs on day of discharge: Labs from last 24 hours 03/29/20 06:55 Sodium 137 Potassium 2.9 L* Chloride 97 L Carbon Dioxide 32 H D Anion Gap 10.9 BUN 22 H Creatinine 0.80 Estimated Creat Clear 70 Estimated GFR 93 Est GFR ( Amer) 112 Glucose 107 H Calcium 8.4 Total Creatine Kinase 501 H* D Preliminary micro results at discharge 03/25/20 10:00 Blood Culture - Preliminary Blood NO GROWTH AFTER 48 HOURS 03/25/20 10:00 Blood Culture - Preliminary Blood NO GROWTH AFTER 48 HOURS DS: Diagnosis - Discharge Diagnosis (1) Pneumonia Status: Acute (2) Rhabdomyolysis Status: Resolved (3) Elevated troponin Status: Acute (4) Chronic atrial fibrillation Status: Acute (5) Wheezing Status: Resolved (6) Fall at home Status: Acute (7) Hypokalemia Status: Acute Discharge Plan - Patient Discharge Instructions ACTIVITY: Continue current activity DIET: continue same diet Patient Instructions: DI for Acute Coronary Syndrome, Rhabdomyolysis, Coronary Artery Disease, DI for Pneumonia -- Adult, DI for Rhabdomyolysis - Follow up Plan Follow up with: Juan Carlos Vargas MD [Primary Care Provider] - 2 days Disposition: Home, Self-Jail Medications: Home Medications Medication Instructions Recorded Confirmed Type levothyroxine 50 mcg capsule 50 mcg PO DAILY cap 10/08/17 03/26/20 History potassium chloride 20 mEq 20 meq PO DAILY 10/08/17 03/26/20 History tablet,extended release [id number]-[id number]-[id number] 1 tab PO DAILY 04/28/18 03/25/20 History vitamins
--- NOTE | 2020-03-29 10:46 | HMH.PHAINT ---
DISCHARGE COUNSELING COMPLETED ON PATIENT. NEW PRESCRIPTIONS INCLUDE DOXYCYCLINE, AUGMENTIN, AND LASIX. ALL NEW PRESCRIPTIONS WERE SENT TO [facility]. PATIENT'S POTASSIUM WAS CHANGED FROM DAILY TO TWICE DAILY. PATIENT IS TO CONTINUE ALL OTHER HOME MEDICATIONS. PATIENT VERBALIZED UNDERSTANDING AND HAD NO QUESTIONS AT THIS TIME. -GUERDA EISENBERG, PHARMD
[2020-03-29 12:00] VITALS: BP 126/80; PULSE 96; RESP 20; TEMP 36.7; O2SAT 92
== END 2020-03-29 12:30 | disposition home or self-care (01) | DRG 564 ==
LOC: ER 12:04 → 2ND 19:19
PROVIDERS: Internal Medicine Adolescent Medicine; Physician Assistant; Admitting Provider Emergency Medicine; Emergency Provider Emergency Medicine; PCP Family Medicine; Visit Provider Family Medicine
DX: T79.6XXA Traumatic ischemia of muscle, initial encounter (principal); J18.9 Pneumonia, unspecified organism; I48.20 Chronic atrial fibrillation, unspecified; I25.10 Atherosclerotic heart disease of native coronary artery without angina pectoris; I10 Essential (primary) hypertension; I25.2 Old myocardial infarction; Z95.5 Presence of coronary angioplasty implant and graft; Z87.891 Personal history of nicotine dependence; E03.9 Hypothyroidism, unspecified; Z79.01 Long term (current) use of anticoagulants; Z79.899 Other long term (current) drug therapy; W19.XXXA Unspecified fall, initial encounter; Y92.019 Unspecified place in single-family (private) house as the place of occurrence of the external cause
CPT/HCPCS: 36415; 70450; 71045; 71046; 80048; 80053; 81001; 82550; 82553; 83605; 84484; 85007; 85025; 86328; 87040; 87581; 87633; 87798; 93005; 93306; 94640; 96365; 96367; 97110; 97116; 97161; 97165; 97530; 99285; J0456; J2405; U0004

== ENCOUNTER → 2020-05-18 07:42 | Outpatient (CLI) | payer MEDICARE, BC, SELFPAY ==
[2020-05-18 10:06] LABS: Chloride 106 mmol/L (98-107); Potassium 4.5 mmoL/L (3.5-5.1); Sodium 141 mmol/L (136-145)
[2020-05-18 10:09] LABS: Anion Gap 12.5 mEq/L (5-15); Blood Urea Nitrogen 19 mg/dl (9-20); Calcium 9.6 mg/dl (8.4-10.2); Carbon Dioxide 27 mmol/L (22.0-30.0); Creatine Kinase 58 U/L (55-170); Estimated Glomerular Filt Rate 72 ml/min (>60); GFR (African American) 87 ML/MIN (>60); Glucose 101 mg/dl (74-100)
== END ==
PROVIDERS: Visit Provider Urology
DX: E78.2 Mixed hyperlipidemia (principal); I11.9 Hypertensive heart disease without heart failure; I25.10 Atherosclerotic heart disease of native coronary artery without angina pectoris; I71.4 Abdominal aortic aneurysm, without rupture; J18.9 Pneumonia, unspecified organism; R79.89 Other specified abnormal findings of blood chemistry; T79.6XXA Traumatic ischemia of muscle, initial encounter; Z79.01 Long term (current) use of anticoagulants; Z95.5 Presence of coronary angioplasty implant and graft
CPT/HCPCS: 36415; 80048; 82550

== ENCOUNTER 2020-06-01 20:11 | Emergency (ER) | payer MEDICARE, BC, SELFPAY ==
[2020-06-01 20:12] VITALS: BP 164/92; PULSE 86; RESP 16; TEMP 36.8; O2SAT 96; BMI 24.4
--- NOTE | 2020-06-01 20:19 | HMH.EDGENADL ---
ED Disposition Clinical Impression: Closed head injury Qualifiers: Encounter type: initial encounter Qualified Code(s): S09.90XA - Unspecified injury of head, initial encounter Fall at home Qualifiers: Encounter type: initial encounter Qualified Code(s): W19.XXXA - Unspecified fall, initial encounter; Y92.009 - Unspecified place in unspecified non-institutional (private) residence as the place of occurrence of the external cause Disposition: Home, Self-Care Condition on Discharge: Good Instructions: DI for Closed Head Injury Referrals: Juan Carlos Vargas MD [Primary Care Provider] - - Critical Care Critical Care Time: No Attestation: On 06/01/20, the high probability of a clinically significant, sudden or life threatening deterioration of the following system(s) required my full and direct attention, intervention and personal management. The time I documented below is in addition to time spent performing reported procedures but includes the following listed in this critical care notation. Medical Decision Making - Danny Inquiry Pt receiving controlled substance: No Vital Signs: 06/01/20 20:12 06/01/20 20:30 Temperature 98.2 F Temperature Source Oral Pulse Rate [Left Radial] 86 84 Respiratory Rate 16 17 Blood Pressure [Right Arm] 164/92 H 142/99 H Blood Pressure Mean [Right Arm] 116 113 Blood Pressure Source [Right Arm] Automatic Cuff Automatic Cuff Blood Pressure Position [Right Arm] Sitting Supine 02 Sat by Pulse Oximetry 96 99 Oxygen Delivery Method Room Air - Lab Data Lab Results 06/01/20 20:35: WBC 10.2, RBC 4.62, Hgb 13.9 L, Hct 41.2 L, MCV 89.1, MCH 30.0, MCHC 33.7, RDW 16.1, Plt Count 240, MPV 7.7, Neut % (Auto) 63.4, Lymph % (Auto) 27.4, Nash % (Auto) 7.0, Eos % (Auto) 1.7, Baso % (Auto) 0.6, Neut # (Auto) 6.4, Lymph # (Auto) 2.8, Nash # (Auto) 0.7, Eos # (Auto) 0.2, Baso # (Auto) 0.1 Result diagrams: 06/01/20 20:35 Orders (Tests/Meds): ED MEDICATIONS Discontinued Medications Generic Name Dose Route Start Last Admin Trade Name Freq PRN Reason Stop Dose Admin Tetanus/Reduced Diphtheria/Acell Pertussis 0.5 ml 06/01/20 21:59 Adacel Tdap 0.5ml Syringe IM 06/01/20 22:00 .ONCE ONE ORDERS Category Date Time Status CT cervical spine wo con Stat Cat Scan 06/01/20 20:[address] head/brain wo con Stat Cat Scan 06/01/20 20:30 Taken Medical Decision Narrative: In summary 84-year-old male presents for head trauma. On arrival patient's vital signs are stable, patient not presyncopal, patient did have blood loss over the last 4 hours on anticoagulation therefore CBC was ordered. Patient's laceration was repaired on arrival with 3-0 absorbable sutures. Again with epinephrine was used. Patient tolerated the procedure well. Patient was taken to scan for CT head and C-spine. On repeat assessment, patient was able to ambulate, non-presyncopal, labs and imaging significant for no significant anemia meeting criteria for transfusion, imaging without frature or intracranial acute pathology. Pt had tdap updated, was able to ambulate, stable neurological exam on reassessment, discharged home with son. General Adult HPI - General Chief complaint: Head Injury Stated complaint: ao fell and hit head bleeding Time Seen by Provider: 06/01/20 20:19 - History of Present Illness HPI narrative: 84-year-old male with past medical history of CAD, on Xarelto and clopidogrel, patient presents for head trauma. Patient had mechanical fall when he was moving a trash can. Patient hit his head, did not have loss of consciousness, patient denies any chest pain or shortness of breath prior to fall. Patient has been ambulatory, incident occurred at 430. Patient states he took his blood thinners last night, patient did not been able to control the bleeding which is why presented to the ER. Denies any presyncopal episodes, lightheadedness when ambulating, any chest pain, shortness of breath,
[2020-06-01 20:30] VITALS: BP 142/99; PULSE 84; RESP 17; O2SAT 99
--- NOTE | 2020-06-01 20:30 | CT_ITS ---
PROCEDURE: CT HEAD/BRAIN WO CON CLINICAL INDICATION: head trauma Head injury with headache/pain, contusion, abrasion or hematoma COMPARISON: CT CT HEAD/BRAIN WO CON from 03/25/2020 TECHNIQUE: Axial images obtained. All CT scans at the facility use one or more dose reduction, viz: automated exposure control, ma/kV adjustment per patient size (including targeted exams where dose is matched to indication, i.e. head), or iterative reconstruction technique. FINDINGS: No midline shift, mass effect, intracranial hemorrhage, hydrocephalus, or extra-axial fluid collection is evident. There is generalized atrophy with hypoattenuation of the periventricular white matter consistent with microangiopathic changes.. There is a small calcific density in the scalp centrally in the frontal area nonspecific. Soft tissue swelling is present in the left parietal region of the scalp consistent with a hematoma. The calvarium has an unremarkable appearance. No mastoid effusion. No sinus air-fluid level. IMPRESSION: No acute intracranial finding Dictated by: Paul Stout MD 06/02/2020 08:35 Paul Stout MD in [place] 06/02/2020 08:35
--- NOTE | 2020-06-01 20:30 | CT_ITS ---
PROCEDURE: CT CERVICAL SPINE WO CON CLINICAL INDICATION: head trauma Neck injury with pain COMPARISON: No exams were available for comparison TECHNIQUE: Axial images obtained with sagittal and coronal reformats. All CT scans at the facility use one or more dose reduction, viz: automated exposure control, ma/kV adjustment per patient size (including targeted exams where dose is matched to indication, i.e. head), or iterative reconstruction technique. Axial spiral CT scanning performed of the cervical spine beginning at the base of the skull and continuing to the upper T-spine. 3-D multiplanar reconstruction with 3-D manipulation of volumetric data set in image rendering was completed by the radiologist and/or technologist with the supervision of the radiologist on independent workstation. FINDINGS: Normal alignment. No fracture or dislocation. No lytic or blastic change. There is multilevel cervical spondylosis. C2-C3: Degenerate disc disease. Right foraminal narrowing from facet hypertrophic change and uncovertebral hypertrophy. C3-C4: Bilateral foraminal narrowing severe on the left and moderate to severe on the right from facet and uncovertebral hypertrophy. C4-C5: Degenerate disc disease with bilateral foraminal narrowing more severe on the right. C5-C6: Degenerate disc disease with bilateral foraminal narrowing C6-C7: Unremarkable. Scarring is present in the lung apices left more so than right with centrilobular emphysema. Scattered small nodes are present in the neck. IMPRESSION: 1. No acute fracture. 2. Multilevel cervical spondylosis as detailed above Dictated by: Paul Stout MD 06/02/2020 08:51 Paul Stout MD in [facility] 06/02/2020 08:51
[2020-06-01 20:38] LABS: Basophils # 0.1 K/mm3 (0-0.2); Basophils % 0.6 % (0.1-2.0); Eosinophils # 0.2 K/mm3 (0.0-0.4); Eosinophils % 1.7 % (0.1-12.0); Hematocrit 41.2 % (42.0-52.0); Hemoglobin 13.9 g/dL (14.1-18.0); Lymphocytes # 2.8 K/mm3 (0.7-4.5); Lymphocytes % 27.4 % (10-50); Mean Corpuscular HGB Conc 33.7 g/dL (31.8-35.4); Mean Corpuscular Volume 89.1 fl (80-94); Mean Platelet Volume 7.7 fl (7.4-10.4); Monocytes # 0.7 K/mm3 (0.1-1.0); Neutrophils # 6.4 K/mm3 (1.8-7.8); Neutrophils % 63.4 % (37.0-80.0); Platelet Count 240 K/mm3 (142-424); Red Blood Count 4.62 M/mm3 (4.60-6.20); Red Cell Distribution Width 16.1 % (11.5-17.5); White Blood Count 10.2 K/mm3 (4.8-10.8)
[2020-06-01 22:26] VITALS: BP 136/85; PULSE 85; RESP 16; TEMP 36.8; O2SAT 96
== END 2020-06-01 22:28 | disposition home or self-care (01) ==
PROVIDERS: Emergency Provider Emergency Medicine; PCP Family Medicine
DX: S01.01XA Laceration without foreign body of scalp, initial encounter (principal); W01.198A Fall on same level from slipping, tripping and stumbling with subsequent striking against other object, initial encounter; Y92.014 Private driveway to single-family (private) house as the place of occurrence of the external cause; I25.10 Atherosclerotic heart disease of native coronary artery without angina pectoris; I48.20 Chronic atrial fibrillation, unspecified; I10 Essential (primary) hypertension; E78.5 Hyperlipidemia, unspecified; I25.2 Old myocardial infarction; Z87.891 Personal history of nicotine dependence; Z23 Encounter for immunization
CPT/HCPCS: 12002; 70450; 72125; 85025; 90471; 90715; 99283

== ENCOUNTER → 2020-06-09 08:07 | Outpatient (CLI) | payer MEDICARE, BC, SELFPAY ==
--- NOTE | 2020-06-09 08:13 | US_ITS ---
PROCEDURE: US ABD. AORTA SCREENING Referring Doctor: Rodrigo Patel Patient Age:84Y CLINICAL INDICATION: ABDOMINAL AORTA . follow-up aneurysm COMPARISON: CT ABDPELWW CT abdomen pelvis wo/w con from 04/04/2018 US US AORTA from 09/29/2019 FINDINGS: We again see the aneurysm lower abdominal aorta. It is difficult to determine the posterior margin with a diffuse wall calcification along echogenic interface of the anterior vertebral body just posterior margin of aorta.. Overall today's measurements we suggest up to near 4 cm AP as maximum dimension mid abdominal aorta measurement. Transverse measurement near for maximum measurement. Circumferential atheromatous plaque present along with atherosclerotic calcification. With this the patent lumen measuring up to 3.2 cm proximally and tapering to 2.5 cm more distally with evidence of some turbulence throughout on color Doppler imaging. There is dilatation of iliac vessels bilaterally again noted. The right iliac artery measure up to nearly 1.9 cm and the left just over 1.4 cm. No retroperitoneal findings otherwise IMPRESSION: . Today's measurements reveal 4 cm maximum AP X 4 cm maximum transverse measurements of the lower abdominal aorta. These measurements have not progressed appreciably since September but I would note somewhat difficult to define the posterior wall of the aneurysm on ultrasound. You may want to consider a follow-up CT next year for more precise measurements particularly prior to any potential intervention decision point Bilateral iliac artery dilatation again noted as well: Right common iliac artery 1.9 cm; and left common iliac just over 1.4 cm Dictated by: Bakari Roberts MD 06/09/2020 13:56 Bakari Roberts MD in [facility] 06/09/2020 13:56
== END ==
PROVIDERS: PCP Family Medicine; Visit Provider Thoracic Surgery (Cardiothoracic Vascular Surgery)
DX: I71.4 Abdominal aortic aneurysm, without rupture (principal)
CPT/HCPCS: 76705

== ENCOUNTER → 2020-08-25 10:30 | Outpatient (CLI) | payer MEDICARE, BC, SELFPAY ==
--- NOTE | 2020-08-25 10:31 | CA_ITS ---
APPROVED REPORT Vendor Representatives: Rebecca Moreira RVT Laterality: Bilateral Study Quality: Good Indications: dizziness Doppler Spectral Velocity Analysis ECA (R) 115.50/13.90 cm/s ECA (L) 155.10/11.60 cm/s dICA (R) 93.00/22.50 cm/s dICA (L) 65.80/21.70 cm/s Damir (R) 92.00/13.90 cm/s Damir (L) 66.60/17.20 cm/s pICA (R) 62.00/13.90 cm/s pICA (L) 80.80/23.90 cm/s dCCA (R) 55.60/6.40 cm/s dCCA (L) 57.60/6.00 cm/s pCCA (R) 85.50/11.80 cm/s pCCA (L) 82.30/8.20 cm/s Vert (R) 40.40/9.00 cm/s Vert (L) 43.30/11.20 cm/s ICA/CCA 1.67 ICA/CCA 1.40 Findings Study suggests 20-49% stenosis of the right internal cartoid artery. Study suggests 20-49% stenosis of the left internal cartoid artery. Antegrade flow seen bilateral vertebral arteries. Conclusion Study suggests 20-49% stenosis of the right internal cartoid artery. Study suggests 20-49% stenosis of the left internal cartoid artery. Antegrade flow seen bilateral vertebral arteries. Electronically signed by : Paul Stout MD 08/25/2020 16:13:05
== END ==
PROVIDERS: PCP Family Medicine; Visit Provider Urology
DX: E78.5 Hyperlipidemia, unspecified (principal); I11.9 Hypertensive heart disease without heart failure; I25.10 Atherosclerotic heart disease of native coronary artery without angina pectoris; I48.91 Unspecified atrial fibrillation; I71.4 Abdominal aortic aneurysm, without rupture; R42 Dizziness and giddiness; Z95.5 Presence of coronary angioplasty implant and graft
CPT/HCPCS: 93880

== ENCOUNTER → 2021-06-15 08:18 | Outpatient (CLI) | payer MEDICARE, BC, SELFPAY ==
--- NOTE | 2021-06-15 08:27 | US_ITS ---
PROCEDURE: US ABD. AORTA SCREENING CLINICAL INDICATION: AAA COMPARISON: CT ABDPELWW CT abdomen pelvis wo/w con from 04/04/2018 US AORTA US aorta from 09/10/2018 US US AORTA from 09/29/2019 US US ABD. AORTA SCREENING from 06/09/2020 FINDINGS: There is mild fusiform dilatation the mid to upper abdominal aorta measuring approximately 3 cm in AP dimension. The aorta then narrows to 1.5 cm and then becomes dilated again at approximately 3.3 cm. This portion of the dilatation does contain a saccular component approximately 8 mm in AP dimension. Inferior to the saccular component is difficult to measure the appropriate diameter of the aorta which may measure up to 4.[address] for confirmation. Proximal common iliacs are unremarkable. IMPRESSION: Abdominal aortic aneurysm as described above measuring up to 3 cm in AP in its cephalad component and possibly up to 4.5 cm inferiorly. There is a small saccular component along the lower portion of the aneurysm at 8 mm in thickness. CTA may confirm the above findings. The this does not appear significantly changed from 09/29/2019. Dictated by: Paul Stout MD 06/18/2021 09:05 Paul Stout MD in [place] 06/18/2021 09:05
== END ==
PROVIDERS: PCP Family Medicine; Visit Provider Thoracic Surgery (Cardiothoracic Vascular Surgery)
DX: I71.4 Abdominal aortic aneurysm, without rupture (principal)
CPT/HCPCS: 76705

== ENCOUNTER → 2021-07-02 10:22 | Outpatient (CLI) | payer MEDICARE, BC, SELFPAY ==
--- NOTE | 2021-07-02 | CA_ITS ---
APPROVED REPORT Exam: Pharmacologic Technologist: Hamida Mendez, Ht: 6 ft 0 in Wt: 191 lbs BSA: 2.09 m2 HR: 85 bpm BP: 134/72 mmHg Medical History Medications: Levothyroxine,,,,, Atorvastatin,,,,, CloPIdogrel,,,,, BisOPROLOL,,,,, Nitroglycerin,,,,, DilTiazem,,,,, Multivitamin,,,,, RIvaROXABAN,,,,, Potassium Chloride ER,,,,, ICaps AREDS,,,,, Stress Test Details Test: LEXISCAN HR Resting HR: 78 bpm Max Heart Rate (APMHR): 137.385426 bpm Max HR Achieved: 102 bpm Target HR (85% APMHR): 116.688981 bpm % of APMHR: 74.45 Recovery HR: 79 bpm BP Resting BP: 134/72 mmHg Max BP: 135/67 mmHg Recovery BP: 126.0/70.0 mmHg ECG Resting ECG: A-fib with CVR, NSSTTW Abnormalities Inf. Lat. Leads Clinical Reason for Termination: Completed Protocol Exercise duration: 04:01 min Highest Stage Achieved: Stress ECG Conclusion Symptoms: None Arrhythmias/Ectopy: Rare PVC ST-T Changes: <1.5mm ST Segment changes Conclusion: Non-Diagnostic Electronically signed by : Clifton Love MD 07/04/2021 13:55:29
--- NOTE | 2021-07-02 10:26 | CA_ITS ---
APPROVED REPORT Offset Press Operator Apprentice: SLICK Laterality: Bilateral Study Quality: Good Indications: tylor Doppler Spectral Velocity Analysis ECA (R) 125.10/17.10 cm/s ECA (L) 116.50/18.00 cm/s dICA (R) 99.50/41.10 cm/s dICA (L) 144.80/47.10 cm/s Damir (R) 83.50/21.20 cm/s Damir (L) 69.40/25.70 cm/s pICA (R) 50.10/19.30 cm/s pICA (L) 72.80/24.80 cm/s dCCA (R) 61.70/13.70 cm/s dCCA (L) 83.00/29.00 cm/s pCCA (R) 117.60/23.50 cm/s pCCA (L) 116.60/28.90 cm/s Vert (R) 51.30/12.80 cm/s Vert (L) 52.30/14.60 cm/s ICA/CCA 0.85 ICA/CCA 1.25 Findings Duplex evaluation demonstrates stenosis of the right proximal internal carotid artery in the range of 20-49% with PSV <140 cm/sec, EDV <100 cm/sec, and IC/CC Ratio <4.0. Duplex evaluation demonstrates stenosis of the left proximal internal carotid artery in the range of 50-69% with PSV =140 cm/sec, EDV <100 cm/sec, and IC/CC Ratio <4.0. Duplex evaluation demonstrates antegrade flow of the bilateral Vertebral Arteries. B-Mode Ultrasound demonstrates moderate intraluminal plaque in the bilateral common Carotid Arteries and right bulb. Moderate plaque in MÓNICA. 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 Duplex evaluation demonstrates stenosis of the left proximal internal carotid artery in the range of 50-69% with PSV =140 cm/sec, EDV <100 cm/sec, and IC/CC Ratio <4.0. Duplex evaluation demonstrates antegrade flow of the bilateral Vertebral Arteries. B-Mode Ultrasound demonstrates moderate intraluminal plaque in the bilateral common Carotid Arteries and right bulb. Moderate plaque in MÓNICA. Electronically signed by : Annita Mary MD 07/03/2021 15:40:36
--- NOTE | 2021-07-02 11:10 | NM_ITS ---
APPROVED REPORT Exam: Nuclear Stress Test Indication: CAD, DYSPNEA, HYPERLIPIDEMIA, HTN, FATIGUE, ABN EKG Patient Location: Outpatient HI Tech:SHERRI SteeleT, RT (R)(N) Ht: 5 ft 11 in Wt: 185 lbs HR: 78 bpm BP: 134/72 mmHg BSA: 2.04 m2 BMI: 25.7 History: CAD, DYSPNEA, HYPERLIPIDEMIA, HTN, FATIGUE, ABN EKG Procedure: Patient received a 0.4 mg of intravenous Lexiscan, resting heart rate 78 bpm, resting blood pressure 134/72 mmHg, with Lexiscan maximum heart rate achived was 102 bpm which is Less than 85 % of the maximum predicted heart rate and blood pressure was 135/67 mmHg. With Lexiscan, patient denied any complaint of chest pain. Electrocardiogram Resting electrocardiogram shows sinus rhythm nonspecific ST-T changes, with Lexiscan there is less than 1.[address] segment depression noted from the baseline EKG. The EKG portion of the Lexiscan is nondiagnostic. Cardiac Stress and Resting SPECT Images: Cardiac Stress and Resting SPECT images were obtained using technetium 99m Myoview 28.9 mCi stress and 10.21 mCi at rest. Gated SPECT for analysis of segmental wall motion and calculation of the ejection fraction also done. Prone images were also done. Cardiac stress and resting SPECT images show reversible ischemia involving the apex and anteroseptal wall, computer derived ejection fraction is 47% with no regional wall motion abnormality, right ventricle is normal size and contractility. Conclusion: 1. The EKG portion of the Lexiscan is nondiagnostic. 2. Scintigraphic evidence of reversible ischemia involving the apex and anteroseptal wall, computer derived ejection fraction 47% with no regional wall motion abnormality, right ventricle is normal size and contractility. 3. Abnormal Lexiscan Myoview study. Electronically signed by : Thaddeus Hayes MD 07/12/2021 10:31:44
--- NOTE | 2021-07-02 13:53 | HMH.ITSHM ---
Current Home Medications as stated by this patient Garfield Berman or petroleum products sales representative. []VITAMINS RIVAROXABAN POTASSIUM NITRO LEVOTHYROXINE DILTIAZEM CLOPIDOGREL BISOPROLOL ATORVASTATIN
== END ==
PROVIDERS: PCP Family Medicine; Visit Provider Urology
DX: E78.5 Hyperlipidemia, unspecified (principal); I11.9 Hypertensive heart disease without heart failure; I25.10 Atherosclerotic heart disease of native coronary artery without angina pectoris; I48.91 Unspecified atrial fibrillation; I71.4 Abdominal aortic aneurysm, without rupture; Z79.01 Long term (current) use of anticoagulants; Z95.5 Presence of coronary angioplasty implant and graft; R42 Dizziness and giddiness; R06.00 Dyspnea, unspecified
CPT/HCPCS: 78452; 93017; 93306; 93880; A9502; J2785

== ENCOUNTER → 2021-07-10 13:41 | Outpatient (CLI) | payer MEDICARE, BC, SELFPAY ==
[2021-07-10 14:30] LABS: Basophils # 0.1 K/mm3 (0-0.2); Basophils % 0.6 % (0.1-2.0); Eosinophils # 0.1 K/mm3 (0.0-0.4); Eosinophils % 1.4 % (0.1-12.0); Hematocrit 26.4 % (42.0-52.0); Hemoglobin 7.5 g/dL (14.1-18.0); Lymphocytes % 25.7 % (10-50); Mean Corpuscular HGB Conc 28.4 g/dL (31.8-35.4); Mean Corpuscular Hemoglobin 21.4 pg (27.0-31.2); Mean Corpuscular Volume 75.2 fl (80-94); Mean Platelet Volume 8.7 fl (7.4-10.4); Monocytes # 0.6 K/mm3 (0.1-1.0); Monocytes % 7.8 % (1.7-9.3); Neutrophils # 4.9 K/mm3 (1.8-7.8); Neutrophils % 64.5 % (37.0-80.0); Platelet Count 425 K/mm3 (142-424); Red Blood Count 3.51 M/mm3 (4.60-6.20); Red Cell Distribution Width 15.8 % (11.5-17.5); White Blood Count 7.6 K/mm3 (4.8-10.8)
[2021-07-10 15:50] LABS: Anion Gap 13.4 mEq/L (5-15); Blood Urea Nitrogen 19 mg/dl (9-20); Calcium 9.1 mg/dl (8.4-10.2); Carbon Dioxide 25 mmol/L (22.0-30.0); Chloride 107 mmol/L (98-107); Estimated Glomerular Filt Rate 81 ml/min (>60); GFR (African American) 98 ML/MIN (>60); Glucose 104 mg/dl (74-100); Potassium 5.4 mmoL/L (3.5-5.1); Sodium 140 mmol/L (136-145)
== END ==
PROVIDERS: Visit Provider Physician Assistant
DX: E78.2 Mixed hyperlipidemia (principal); I11.9 Hypertensive heart disease without heart failure; I25.10 Atherosclerotic heart disease of native coronary artery without angina pectoris; I71.4 Abdominal aortic aneurysm, without rupture; Z79.01 Long term (current) use of anticoagulants; Z95.5 Presence of coronary angioplasty implant and graft; I63.9 Cerebral infarction, unspecified; I48.20 Chronic atrial fibrillation, unspecified; Z01.812 Encounter for preprocedural laboratory examination; Z11.52 Encounter for screening for COVID-19
CPT/HCPCS: 80048; 85025; C9803; U0003; U0005

== ENCOUNTER 2021-07-13 09:07 | Outpatient (CLI) | payer MEDICARE, BC, SELFPAY ==
[2021-07-13] VITALS (10 sets, daily range): BP systolic 111–144; BP diastolic 60–79; PULSE 65–82; RESP 16; TEMP 35.7–36.1; O2SAT 97–100; BMI 25.0
[2021-07-13 09:38] LABS: Hematocrit 25.3 % (42.0-52.0)
--- NOTE | 2021-07-13 11:08 | PC.NURSE ---
1104 - BLOOD TRANSFUSION STARTED AT 100 ML/HR AT THIS TIME.
--- NOTE | 2021-07-13 11:40 | PC.NURSE ---
1134 - INCREASED RATE TO 150 ML/HR AT THIS TIME.
--- NOTE | 2021-07-13 12:13 | PC.NURSE ---
1204 - INCREASED RATE TO 200 ML/HR AT THIS TIME.
[2021-07-13 14:16] LABS: Hematocrit 26.6 % (42.0-52.0); Hemoglobin 7.7 g/dL (14.1-18.0)
== END 2021-07-13 14:05 | disposition home or self-care (01) ==
LOC: INF 09:08
PROVIDERS: PCP Family Medicine; Visit Provider Family Medicine
DX: D50.9 Iron deficiency anemia, unspecified (principal); D62 Acute posthemorrhagic anemia; K92.2 Gastrointestinal hemorrhage, unspecified
CPT/HCPCS: 36415; 36430; 85014; 85018; 86850; P9016

== ENCOUNTER 2021-07-18 08:51 | Outpatient (CLI) | payer MEDICARE, BC, SELFPAY ==
[2021-07-18 09:05] VITALS: BP 125/63; PULSE 76; RESP 18; TEMP 36.6; O2SAT 98
[2021-07-18 09:45] VITALS: BP 129/73; PULSE 86; RESP 18
== END 2021-07-18 09:45 | disposition home or self-care (01) ==
LOC: INF 08:52
PROVIDERS: PCP Family Medicine; Visit Provider Family Medicine
DX: D50.9 Iron deficiency anemia, unspecified (principal); D62 Acute posthemorrhagic anemia; K92.2 Gastrointestinal hemorrhage, unspecified
CPT/HCPCS: 96365; J1439

== ENCOUNTER 2021-07-25 08:41 | Outpatient (CLI) | payer MEDICARE, BC, SELFPAY ==
[2021-07-25 09:00] VITALS: BP 125/77; PULSE 80; RESP 18; O2SAT 95
[2021-07-25 09:35] VITALS: BP 125/77; PULSE 79; RESP 16
== END 2021-07-25 09:40 | disposition home or self-care (01) ==
LOC: INF 08:42
PROVIDERS: PCP Family Medicine; Visit Provider Family Medicine
DX: D50.9 Iron deficiency anemia, unspecified (principal); D62 Acute posthemorrhagic anemia; K92.2 Gastrointestinal hemorrhage, unspecified
CPT/HCPCS: 96365; J1439

== ENCOUNTER → 2021-07-28 09:47 | Outpatient (CLI) | payer MEDICARE, BC, SELFPAY ==
[2021-07-28 10:18] LABS: Basophils % 0.8 % (0.1-2.0); Eosinophils # 0.2 K/mm3 (0.0-0.4); Eosinophils % 2.6 % (0.1-12.0); Hematocrit 34.5 % (42.0-52.0); Hemoglobin 10.1 g/dL (14.1-18.0); Lymphocytes # 1.1 K/mm3 (0.7-4.5); Lymphocytes % 18.2 % (10-50); Mean Corpuscular HGB Conc 29.2 g/dL (31.8-35.4); Mean Corpuscular Hemoglobin 23.7 pg (27.0-31.2); Mean Corpuscular Volume 81.3 fl (80-94); Mean Platelet Volume 9.6 fl (7.4-10.4); Monocytes # 0.4 K/mm3 (0.1-1.0); Monocytes % 6.3 % (1.7-9.3); Neutrophils # 4.2 K/mm3 (1.8-7.8); Neutrophils % 72.2 % (37.0-80.0); Platelet Count 245 K/mm3 (142-424); Red Blood Count 4.24 M/mm3 (4.60-6.20); White Blood Count 5.8 K/mm3 (4.8-10.8)
[2021-07-28 10:20] LABS: Red Cell Distribution Width 25.3 % (11.5-17.5)
[2021-07-28 11:18] LABS: C-Reactive Protein 2.3 mg/L (0-4)
[2021-07-28 11:42] LABS: Erythrocyte Sedimentation Rate 16 mm/hr (0-20)
[2021-07-28 12:19] LABS: Vitamin B12 903 pg/mL (239-931)
[2021-07-28 12:25] LABS: Folate > 20.00 ng/mL
[2021-08-01 03:37] LABS: Arsenic, Blood 1 ug/L (2-23); Lead, Blood 2 ug/dL (0-4); Mercury, Blood <1.0 ug/L (0.0-14.9)
== END ==
PROVIDERS: Ophthalmology; Visit Provider Surgery
DX: Z01.812 Encounter for preprocedural laboratory examination (principal); Z20.822 Contact with and (suspected) exposure to COVID-19; Z13.810 Encounter for screening for upper gastrointestinal disorder; Z12.11 Encounter for screening for malignant neoplasm of colon
CPT/HCPCS: 36415; 82175; 82607; 82746; 83655; 83825; 84425; 85025; 85651; 86140; C9803; U0003; U0005

== ENCOUNTER 2021-07-31 06:27 | Day surgery (SDC) | payer MEDICARE, BC, SELFPAY ==
[2021-07-25 14:20] VITALS: BMI 24.4
[2021-07-31 06:49] VITALS: BP 163/82; PULSE 84; RESP 18; TEMP 36.4; O2SAT 100
[2021-07-31 07:21] VITALS: O2SAT 97
--- NOTE | 2021-07-31 07:28 | P.PN_ITS ---
[facility] Anesthesia Checklist - Patient Identification Patient Identification: Arm Band - Structural Data Admitted From: Home Planned Operative Procedure/s: EGD/Colonoscopy Consent for Planned Operative Procedure(s) Verified: Yes - NPO Status Verified Time NPO: 02:00 (Prep) - Airway Assessment C-Spine Mobility Assessed: Yes TMJ Mobility Assessed: Yes Dentition: Partials - Neurological Assessment Level of Consciousness: Awake Hx Seizures: No Numbness or tingling in extremities: No - Anesthesia Plan Anesthesia Risk discussed: Yes Anesthesia Plan: Verified ASA Class: III Anesthesia Type: MAC [facility] History I have reviewed the patient's past medical history: Yes Medical History: Reports:: Aneurysm, Atrial Fibrillation, Cancer, Carotid Stenosis, Coronary Artery Disease, Hyperlipidemia, Hypertension, Myocardial Infarction Denies:: Diabetes Mellitus Type 1, Diabetes Mellitus Type 2, Internal Pacemaker, MRSA, Seizures *Have you ever received a pneumonia vaccine?: Yes *Have you received a flu vaccine this season?: Yes Other Medical History: Reports: Anemia, Cataracts, Hypothyroidism Anesthesia experience/problems:: None Other Surgeries: Yes: Angioplasty, Cancer Surgery, Cardiac Catheterization, Cardiac Surgery, Coronary Stent, Skin Cancer Excision, Other. No: Pacemaker Amputation: No Fractures: No - *Social History Last grade of school completed: High school graduate Smoking Status: Never smoker Tobacco Type: cigarettes Alcohol Intake: never Alcohol Intake Frequency:: other Substance Use Type: denies use *Occupational Status:: retired Housing: house Household Members: none *Travel in the last 8 weeks: None Family Hx:: Cancer, Coronary Artery Disease, Heart Attack, Hypertension
[2021-07-31 08:07] VITALS: BP 96/51; PULSE 104; RESP 16; TEMP 36.4; O2SAT 95
--- NOTE | 2021-07-31 08:09 | P.PCN_ITS ---
- Procedure: Date: 07/31/21 Patient Date of :: 1935 Procedure Performed:: Esophagogastroduodenoscopy with biopsy Colonoscopy with polypectomy by means other than snare Indications:: Anemia Performing Provider:: Jasbir Thorne MD Referring Provider:: . Sedation:: Monitored anesthesia care Procedure:: After informed consent was obtained the patient was taken to the endoscopy suite. Sedation ensued after the patient was transferred to the left lateral decubitus position. Pulse, blood pressure, and oxygen saturation were monitored throughout the procedure. The endoscope was advanced beyond the duodenal bulb. Retroflexion within the gastric lumen was accomplished. The gastroscope was carefully removed. Digital rectal exam revealed no significant abnormality. The colonoscope was placed in position. The entire colon was evaluated. The colonoscope was carefully removed and the patient was transferred to recovery in stable condition. Please see findings and specimens below for detail. Findings:: Gastroesophageal junction 42 cm Inflammation at gastroesophageal junction Patchy gastritis Bowel preparation relatively fair Fairly significant lack of relaxation Pandiverticulosis (worse in sigmoid) Hemorrhoidal tag/cushions with patchy inflammatory changes (no active bleeding) Polyps (see specimens) Specimens:: Antral biopsy Biopsy gastroesophageal junction Sessile transverse colon polyp Polyp at 18 cm Recommendations:: Timing of repeat colonoscopy is pending pathology but likely be around 2 years secondary to lack of relaxation and concomitant limitations in visualization. Evaluation with regard to anemia will be ongoing. He will likely require UGI/SBFT followed by capsule endoscopy. Although the possibility of hemorrhoidal bleeding (particularly given inflammatory nature of his hemorrhoid disease) and/or diverticular bleeding ex ists, other etiologies require evaluation. Complications:: No immediate Estimated blood obtained (mL): 1
[2021-07-31 08:17] VITALS: BP 110/52; PULSE 96; RESP 16; O2SAT 96
[2021-07-31 08:27] VITALS: BP 122/79; PULSE 93; RESP 16; O2SAT 100
[2021-07-31 09:07] VITALS: BP 121/80; PULSE 85; RESP 16; O2SAT 99
== END 2021-07-31 09:07 | disposition home or self-care (01) ==
LOC: OUTP 06:29
PROVIDERS: PCP Family Medicine; Visit Provider Surgery
PROC: 0DJ08ZZ Inspection of Upper Intestinal Tract, Via Natural or Artificial Opening Endoscopic (ICD-10-PCS; CPT 43235; principal; 2021-07-31 07:30)
DX: K29.60 Other gastritis without bleeding (principal); K52.89 Other specified noninfective gastroenteritis and colitis; K57.30 Diverticulosis of large intestine without perforation or abscess without bleeding; K56.2 Volvulus; K64.8 Other hemorrhoids; K63.5 Polyp of colon; D64.9 Anemia, unspecified; I27.20 Pulmonary hypertension, unspecified; I65.29 Occlusion and stenosis of unspecified carotid artery; I35.0 Nonrheumatic aortic (valve) stenosis; I48.20 Chronic atrial fibrillation, unspecified; I25.10 Atherosclerotic heart disease of native coronary artery without angina pectoris; Z95.5 Presence of coronary angioplasty implant and graft
CPT/HCPCS: 43239; 45380; 88305

== ENCOUNTER → 2021-08-07 09:23 | Outpatient (CLI) | payer MEDICARE, BC, SELFPAY ==
[2021-08-13 11:33] LABS: Vitamin B1 204.1 nmol/L (66.5-200.0)
== END ==
PROVIDERS: Visit Provider Ophthalmology
DX: E51.8 Other manifestations of thiamine deficiency
CPT/HCPCS: 84425

== ENCOUNTER → 2021-08-15 08:42 | Outpatient (CLI) | payer MEDICARE, BC, SELFPAY ==
--- NOTE | 2021-08-15 08:42 | FL_ITS ---
PROCEDURE: FL UPPER GI SMALL BOWEL CLINICAL INDICATION: anemia COMPARISON: No exams were available for comparison FINDINGS: There is a small hiatal hernia with non constricting Schatzki's ring. The esophagus, stomach and duodenum have an unremarkable appearance. No ulcer or mass. There was mild silent aspiration. The small bowel has an unremarkable appearance. No obstruction, mucosal abnormalities or masses are demonstrated. Terminal ileum has an unremarkable appearance IMPRESSION: 1. Small hiatal hernia. 2. Solid tracheal aspiration 3. Otherwise unremarkable upper GI and small-bowel Dictated by: Paul Stout MD 08/15/2021 16:34 Paul Stout MD in OV 08/15/2021 16:34
== END ==
PROVIDERS: PCP Family Medicine; Visit Provider Surgery
DX: D64.9 Anemia, unspecified (principal); K22.70 Barrett's esophagus without dysplasia
CPT/HCPCS: 74246; 74248

== ENCOUNTER → 2021-11-07 09:09 | Outpatient (CLI) | payer MEDICARE, BC, SELFPAY ==
[2021-11-07 09:57] LABS: Hemoglobin 10.1 g/dL (14.1-18.0)
== END ==
PROVIDERS: Visit Provider Surgery
DX: D64.9 Anemia, unspecified (principal)
CPT/HCPCS: 36415; 85014; 85018

== ENCOUNTER 2021-12-19 10:03 | Outpatient (CLI) | payer MEDICARE, BC, SELFPAY ==
[2021-12-19] VITALS (18 sets, daily range): BP systolic 108–135; BP diastolic 42–74; PULSE 62–83; RESP 16–18; TEMP 36–36.3; O2SAT 100; BMI 25.7
--- NOTE | 2021-12-19 10:21 | PC.NURSE ---
1015 - BLOOD DRAWN FROM LEFT AC USING BUTTERFLY NEEDLE TO CHECK CBC AT THIS TIME.
[2021-12-19 10:22] LABS: Basophils % 0.6 % (0.1-2.0); Eosinophils # 0.1 K/mm3 (0.0-0.4); Eosinophils % 1.9 % (0.1-12.0); Hematocrit 24.7 % (42.0-52.0); Hemoglobin 7.5 g/dL (14.1-18.0); Lymphocytes % 16.3 % (10-50); Mean Corpuscular HGB Conc 30.4 g/dL (31.8-35.4); Mean Corpuscular Hemoglobin 20.6 pg (27.0-31.2); Mean Corpuscular Volume 67.7 fl (80-94); Mean Platelet Volume 11.1 fl (7.4-10.4); Monocytes # 0.6 K/mm3 (0.1-1.0); Monocytes % 9.5 % (1.7-9.3); Neutrophils # 4.2 K/mm3 (1.8-7.8); Neutrophils % 71.7 % (37.0-80.0); Platelet Count 215 K/mm3 (142-424); Red Blood Count 3.64 M/mm3 (4.60-6.20); Red Cell Distribution Width 17.9 % (11.5-17.5); White Blood Count 5.8 K/mm3 (4.8-10.8)
--- NOTE | 2021-12-19 12:32 | PC.NURSE ---
1228 - BLOOD TRANSFUSION STARTED AT 100 ML/HR AT THIS TIME.
--- NOTE | 2021-12-19 13:06 | PC.NURSE ---
1258 - INCREASED RATE TO 150 ML/HR AT THIS TIME.
--- NOTE | 2021-12-19 13:49 | PC.NURSE ---
1328 - INCREASED RATE TO 250 ML/HR AT THIS TIME.
--- NOTE | 2021-12-19 14:33 | PC.NURSE ---
1429 - BLOOD TRANSFUSION STARTED AT 100 ML/HR AT THIS TIME.
--- NOTE | 2021-12-19 15:07 | PC.NURSE ---
1459 - INCREASED RATE TO 150 ML/HR AT THIS TIME.
--- NOTE | 2021-12-19 15:34 | PC.NURSE ---
1514 - INCREASED RATE TO 200 ML/HR AT THIS TIME.
--- NOTE | 2021-12-19 15:36 | PC.NURSE ---
1529 - INCREASED RATE TO 250 ML/HR AT THIS TIME.
[2021-12-19 17:18] LABS: Basophils % 0.9 % (0.1-2.0); Eosinophils # 0.2 K/mm3 (0.0-0.4); Eosinophils % 3.2 % (0.1-12.0); Hematocrit 27.5 % (42.0-52.0); Lymphocytes # 1.1 K/mm3 (0.7-4.5); Lymphocytes % 22.3 % (10-50); Mean Corpuscular HGB Conc 31.1 g/dL (31.8-35.4); Mean Corpuscular Hemoglobin 22.4 pg (27.0-31.2); Mean Platelet Volume 9.3 fl (7.4-10.4); Monocytes # 0.5 K/mm3 (0.1-1.0); Neutrophils % 63.5 % (37.0-80.0); Platelet Count 203 K/mm3 (142-424); Red Blood Count 3.83 M/mm3 (4.60-6.20); Red Cell Distribution Width 21.5 % (11.5-17.5); White Blood Count 4.7 K/mm3 (4.8-10.8)
[2021-12-19 17:48] LABS: Hemoglobin 8.6 g/dL (14.1-18.0)
== END 2021-12-19 17:10 | disposition home or self-care (01) ==
LOC: INF 10:03
PROVIDERS: PCP Family Medicine; Visit Provider Family Medicine
DX: D64.9 Anemia, unspecified (principal)
CPT/HCPCS: 36430; 85025; 86850; P9016

== ENCOUNTER → 2022-07-10 07:41 | Outpatient (CLI) | payer MEDICARE, BC, SELFPAY ==
--- NOTE | 2022-07-10 07:46 | US_ITS ---
FINAL REPORT CLINICAL HISTORY: AAA FINDINGS: Limited sonographic images of the abdominal aorta were obtained. There is a 4.4 cm abdominal aortic aneurysm with significant mural thrombus. The iliacs are within normal limits. IMPRESSION: Abdominal aortic aneurysm with significant mural thrombus. Reviewed, Interpreted and Dictated by Fritz Houser III, MD Transcribed by Tegan Levin Authenticated and [facility]
== END ==
PROVIDERS: PCP Family Medicine; Visit Provider Thoracic Surgery (Cardiothoracic Vascular Surgery)
DX: I71.40 Abdominal aortic aneurysm, without rupture, unspecified (principal)
CPT/HCPCS: 76770

== ENCOUNTER 2022-11-02 03:04 | Emergency (ER) | payer MEDICARE, BC, SELFPAY ==
[2022-11-02] VITALS (9 sets, daily range): BP systolic 140–171; BP diastolic 73–112; PULSE 69–96; RESP 15–20; TEMP 36.6–36.8; O2SAT 95–98; BMI 24.4
--- NOTE | 2022-11-02 03:02 | ECG_ITS ---
APPROVED REPORT Exam: Resting ECG HR:93 bpm ECG Measurements Heart Rate 93 AXES QRSd 88 QRS 83 QT 367 T 80 QTc 418 Conclusion ATRIAL FIBRILLATION MODERATE ST DEPRESSION [0.05+ mV ST DEPRESSION] ABNORMAL ECG UNCONFIRMED REPORT Electronically signed by : Juan Carlos Marcelino MD 11/02/2022 20:00:41
--- NOTE | 2022-11-02 03:08 | XR_ITS ---
PROCEDURE INFORMATION: Exam: XR Chest Exam date and time: 11/02/2022 3:28 AM Age: 86 years old Clinical indication: Pain; Chest pressure; Additional info: Chest pain evaluation TECHNIQUE: Imaging protocol: Radiologic exam of the chest. Views: 1 view. COMPARISON: CR XR CHEST 2V 03/26/2020 7:22 AM FINDINGS: Lungs: Chronic interstitial changes. Pleural spaces: Unremarkable. No pleural effusion. No pneumothorax. Pulmonary vascular prominence. Heart/Mediastinum: Moderate cardiomegaly. Bones/joints: Unremarkable. IMPRESSION: Cardiomegaly and chronic interstitial changes. Pulmonary vascular prominence may be consistent with volume overload.
--- NOTE | 2022-11-02 03:13 | HMH.EDCP ---
Discharge Plan Disposition Patient Disposition: Home, Self-Care Condition: Good Prescriptions Prescriptions: No Action levothyroxine 50 mcg capsule 50 mcg PO DAILY [employer] 1.5 billion cell capsule 1 cap PO DAILY nitroglycerin 0.4 mg tablet, sublingual 0.4 mg SUBLINGUAL Q5MINP PRN (Reason: Chest Pain) Qty: 20 0RF vitamins A,C,R-lwky-mzmmzb [ICaps AREDS] 14,320-226-200 nlzj-vt-nxqw capsule 1 cap PO BID dxwrrasktung-volozwye-gtgdxv tablet 1 tab PO DAILY atorvastatin 40 mg tablet See Rx Instructions .ROUTE .COMPLEX Qty: 90 1RF Dose Instruction: TAKE ONE TABLET BY MOUTH EVERY NIGHT AT BEDTIME FOR CHOLESTEROL Rx Instructions: TAKE ONE TABLET BY MOUTH EVERY NIGHT AT BEDTIME FOR CHOLESTEROL diltiazem HCl 120 mg capsule,extended release 24hr See Rx Instructions .ROUTE .COMPLEX Qty: 90 2RF Dose Instruction: TAKE 1 CAPSULE BY MOUTH ONCE DAILY FOR HEART Rx Instructions: TAKE 1 CAPSULE BY MOUTH ONCE DAILY FOR HEART bisoprolol fumarate 10 mg tablet See Rx Instructions .ROUTE .COMPLEX Qty: 90 1RF Dose Instruction: TAKE ONE TABLET BY MOUTH EVERY DAY Rx Instructions: TAKE ONE TABLET BY MOUTH EVERY DAY esomeprazole magnesium 40 MG capsule,delayed release(DR/EC) 40 mg PO BID Referrals Follow up/Referrals: Fidelia Cheung MD [Primary Care Provider] - See instructions Clinical Impressions Clinical Impression: Chest pain, musculoskeletal Discharge ED Provider: Izaiah Felipe Chest Pain HPI General Chief Complaint: Chest Pain Stated Complaint: Chest Pain Time Seen by Provider: 11/02/22 03:34 Mode of Arrival: Ambulatory Source of Information: Patient Limitations: No Limitations Description of Symptoms (Recalled from ER Triage Doc. by RN): Patient c/o mild chest pain for prior 2 days. Saw his pcp yesterday for the chest pain but states that there wasn't anything done about it. Pt arrives to ER c c/o more severe chest pain for the prior 30 minutes. States that the pressure is in the center of his chest. Denies any radiation. History of Present Illness HPI narrative: Patient presents for evaluation of chest pain that started a couple of days ago. He says he was seen by his primary care provider recently for the chest pain as well and had some labs drawn, but no significant results on his lab work per the patient and he went back home. He says he woke from sleep tonight due to pain in his chest that he describes as pressure. The pain is reproducible on palpation. He denies new movements, manual labor, trauma to his chest that could cause his symptoms. He is not having nausea or vomiting at this time. Patient has a past medical history significant for atrial fibrillation and has had multiple stents placed in the past. Related Data Home Medications Medication Instructions Recorded Confirmed levothyroxine 50 mcg capsule 50 mcg PO DAILY thyroid 10/08/17 12/19/21 ogvlrsfzvwyn-qtisedin-cztlsq tablet 1 tab PO DAILY Supplement 04/28/18 12/19/21 vitamins A,C,H-pvso-bchymf 4,296 1 cap PO BID Supplement 04/28/18 12/19/21 mcg-226 mg-90 mg capsule ([employer] AREAbiquo) Lactobacills gasseri-Bifidobac 1 cap PO DAILY Supplement 05/24/20 12/19/21 bifidum,longum 1.5 billion cell capsule ([employer] esomeprazole magnesium 40 mg 40 mg PO BID GERD 12/19/21 12/19/21 capsule,delayed release Previous Rx's Medication Instructions Recorded nitroglycerin 0.4 mg sublingual 0.4 mg sublingual Q5MINP PRN Chest 12/20/20 tablet Pain #20 tabs atorvastatin 40 mg tablet See Rx Instructions .Route 07/01/22 .COMPLEX #90 ea diltiazem HCl 120 mg See Rx Instructions .Route 08/26/22 capsule,extended release 24 hr .COMPLEX #90 caps bisoprolol fumarate 10 mg tablet See Rx Instructions .Route 10/07/22 .COMPLEX #90 tabs Allergies Allergy/AdvReac Type Severity Reaction Status Date / Time No Known Allergies Allergy Verified
[2022-11-02 03:34] LABS: Chloride 107 mmol/L (98-107); Sodium 141 mmol/L (136-145)
[2022-11-02 03:35] LABS: Potassium 3.7 mmoL/L (3.5-5.1)
[2022-11-02 03:37] LABS: Basophils # 0.1 K/mm3 (0-0.2); Basophils % 0.7 % (0.1-2.0); Blood Urea Nitrogen 23 mg/dl (9-20); Creatinine Clearance Estimated 64 mL/min (50-200); Eosinophils # 0.3 K/mm3 (0.0-0.4); Estimated Glomerular Filt Rate 71 ml/min (>60); GFR (African American) 86 ML/MIN (>60); Hematocrit 33.4 % (42.0-52.0); Hemoglobin 10.5 g/dL (14.1-18.0); Lymphocytes # 2.3 K/mm3 (0.7-4.5); Lymphocytes % 23.6 % (10-50); Mean Corpuscular HGB Conc 31.4 g/dL (31.8-35.4); Mean Corpuscular Hemoglobin 21.7 pg (27.0-31.2); Mean Corpuscular Volume 68.9 fl (80-94); Mean Platelet Volume 8.1 fl (7.4-10.4); Monocytes # 1.1 K/mm3 (0.1-1.0); Monocytes % 11.5 % (1.7-9.3); Neutrophils # 5.8 K/mm3 (1.8-7.8); Neutrophils % 61.2 % (37.0-80.0); Platelet Count 223 K/mm3 (142-424); Red Blood Count 4.85 M/mm3 (4.60-6.20); Red Cell Distribution Width 24.8 % (11.5-17.5); White Blood Count 9.5 K/mm3 (4.8-10.8)
[2022-11-02 03:38] LABS: Anion Gap 8.7 mEq/L (5-15); Calcium 8.7 mg/dl (8.4-10.2); Carbon Dioxide 29 mmol/L (22.0-30.0); Glucose 121 mg/dl (74-100)
[2022-11-02 03:51] LABS: Troponin I < 0.01 ng/ml (0.00-0.034)
--- NOTE | 2022-11-02 04:02 | CT_ITS ---
PROCEDURE INFORMATION: Exam: CTA Chest With Contrast Exam date and time: 11/02/2022 4:21 AM Age: 86 years old Clinical indication: Pain; Chest pressure and on breathing; Additional info: Chest pain with inspiration, atrial fibrillation TECHNIQUE: Imaging protocol: Computed tomographic angiography of the chest with contrast. 3D rendering (Not supervised by radiologist): MIP and/or 3D reconstructed images were created by the technologist. Radiation optimization: All CT scans at this facility use at least one of these dose optimization techniques: automated exposure control; mA and/or kV adjustment per patient size (includes targeted exams where dose is matched to clinical indication); or iterative reconstruction. Contrast material: ISOVUE; Contrast volume: 70 ml; Contrast route: INTRAVENOUS (IV); REPORTING DATA: Count of CT and Cardiac NM exams in prior 12 months: This patient has received 0 known CTs and 0 known cardiac nuclear medicine studies in the 12 months prior to the current study. COMPARISON: CR XR CHEST PORTABLE 11/02/2022 3:28 AM FINDINGS: Pulmonary arteries: Normal. No pulmonary emboli. Aorta: Unremarkable. No aortic aneurysm. No aortic dissection. Lungs: Diffuse ground-glass opacity in the lower lobes. Bibasilar atelectasis. No focal consolidation noted. Pleural spaces: Unremarkable. No pneumothorax. No pleural effusion. Heart: Cardiomegaly with coronary atherosclerosis. Right atrial and right ventricular enlargement. Lymph nodes: Some mildly prominent mediastinal adenopathy is noted measuring up to 1 cm in short axis. This also includes bilateral hilar adenopathy. Bones/joints: Unremarkable. No acute fracture. Soft tissues: A subcutaneous 3.3 cm soft tissue nodule seen in the midline in the lower portion of the neck incompletely evaluated on this study. IMPRESSION: 1. No evidence of pulmonary embolus. 2. Cardiomegaly with coronary atherosclerosis. Right atrial and ventricular enlargement. 3. Diffuse ground-glass opacity may represent alveolitis or edema. No focal infiltrates noted. 4. 3.3 cm subcutaneous low-attenuation nodule in the midline at the base of the neck incompletely evaluated but likely related to skin pathology.
--- NOTE | 2022-11-02 04:39 | PC.NURSE ---
Pt back from RAD
--- NOTE | 2022-11-02 05:39 | PC.NURSE ---
Pt ambulatory to bathroom and back to bed
[2022-11-02 06:00] LABS: Troponin I < 0.01 ng/ml (0.00-0.034)
== END 2022-11-02 06:28 | disposition home or self-care (01) ==
PROVIDERS: Emergency Provider Emergency Medicine; PCP Family Medicine
DX: R07.89 Other chest pain (principal); I48.91 Unspecified atrial fibrillation; I11.0 Hypertensive heart disease with heart failure; E78.5 Hyperlipidemia, unspecified; I71.40 Abdominal aortic aneurysm, without rupture, unspecified; Z95.828 Presence of other vascular implants and grafts
CPT/HCPCS: 71045; 71275; 80048; 84484; 85025; 93005; 96374; 99285; Q9967

== ENCOUNTER 2022-11-11 08:12 | Day surgery (SDC) | payer MEDICARE, BC, SELFPAY ==
[2022-11-11] VITALS (11 sets, daily range): BP systolic 134–160; BP diastolic 63–94; PULSE 53–87; RESP 16–20; TEMP 36.6–37.1; O2SAT 96–98; BMI 26.0
--- NOTE | 2022-11-11 07:15 | IR_ITS ---
APPROVED REPORT Patient Location: [facility] Operator Thread: TUNDE Lopez RT (R) PROCEDURES Left heart catheterization Left ventriculogram Selective coronary angiogram INDICATION Angina pectoris, Abnormal Myoview, Known coronary disease, Informed consent was obtained prior to the procedure. COMPLICATIONS None Estimated Blood Loss: Less than 10 mls TECHNIQUE One percent lidocaine used to anesthetize the right anterior aspect of the wrist. The right radial artery was accessed via the Seldinger technique. A 6 [place] sheath was placed in the right radial artery. 2.5 mg of verapamil, 800 mcg of nitroglycerin, 1mg Lidocaine and 5000 U Heparin were given through the arterial sheath. The papa catheter was also used to perform left heart catheterization, left ventriculogram and selective coronary angiogram. At the end of the procedure the sheath was removed good hemostasis was achieved using Traclet band, patient was transferred to the postop holding area in stable condition. ANGIOGRAPHIC RESULTS The left main artery Normal The left anterior descending artery Has a stent in the proximal segment which is widely patent with minimal stent 20 to 30% stenosis proximal to the LAD stent. The remaining LAD is widely patent The circumflex artery Large dominant with 40 to 50% stenosis in a terminal obtuse marginal artery which is 2.5 mm in diameter The right coronary artery Vestigial normal The WELCH ventriculogram reveals Normal 65% The left ventricular end-diastolic pressure 15-20 mmHg IMPRESSION Coronary disease as described above Normal ejection fraction Elevated LVEDP PLAN 1. Medical management Electronically signed by : Clifton Love MD 11/11/2022 13:23:10
[2022-11-11 09:14] LABS: Basophils # 0.1 K/mm3 (0-0.2); Basophils % 0.8 % (0.1-2.0); Eosinophils # 0.4 K/mm3 (0.0-0.4); Eosinophils % 3.3 % (0.1-12.0); Hematocrit 36.8 % (42.0-52.0); Hemoglobin 11.3 g/dL (14.1-18.0); Lymphocytes # 1.7 K/mm3 (0.7-4.5); Lymphocytes % 16.4 % (10-50); Mean Corpuscular HGB Conc 30.8 g/dL (31.8-35.4); Mean Corpuscular Hemoglobin 21.6 pg (27.0-31.2); Mean Corpuscular Volume 70.4 fl (80-94); Mean Platelet Volume 8.5 fl (7.4-10.4); Monocytes # 0.8 K/mm3 (0.1-1.0); Monocytes % 7.9 % (1.7-9.3); Neutrophils # 7.6 K/mm3 (1.8-7.8); Neutrophils % 71.5 % (37.0-80.0); Platelet Count 377 K/mm3 (142-424); Red Blood Count 5.23 M/mm3 (4.60-6.20); Red Cell Distribution Width 23.9 % (11.5-17.5); White Blood Count 10.6 K/mm3 (4.8-10.8)
[2022-11-11 09:26] LABS: Chloride 104 mmol/L (98-107)
[2022-11-11 09:27] LABS: Potassium 3.7 mmoL/L (3.5-5.1); Sodium 141 mmol/L (136-145)
[2022-11-11 09:30] LABS: Anion Gap 13.7 mEq/L (5-15); Blood Urea Nitrogen 19 mg/dl (9-20); Calcium 8.9 mg/dl (8.4-10.2); Carbon Dioxide 27 mmol/L (22.0-30.0); Creatinine Clearance Estimated 68 mL/min (50-200); Estimated Glomerular Filt Rate 71 ml/min (>60); GFR (African American) 86 ML/MIN (>60); Glucose 106 mg/dl (74-100)
== END 2022-11-11 15:05 | disposition home or self-care (01) ==
PROVIDERS: PCP Family Medicine; Visit Provider Internal Medicine
DX: R94.39 Abnormal result of other cardiovascular function study (principal); I11.9 Hypertensive heart disease without heart failure; I25.110 Atherosclerotic heart disease of native coronary artery with unstable angina pectoris; I27.20 Pulmonary hypertension, unspecified; I35.0 Nonrheumatic aortic (valve) stenosis; I65.23 Occlusion and stenosis of bilateral carotid arteries; E78.2 Mixed hyperlipidemia; R06.00 Dyspnea, unspecified; Z79.01 Long term (current) use of anticoagulants; Z95.5 Presence of coronary angioplasty implant and graft; Z79.899 Other long term (current) drug therapy; I48.20 Chronic atrial fibrillation, unspecified; I71.40 Abdominal aortic aneurysm, without rupture, unspecified
CPT/HCPCS: 80048; 85025; 93306; 93458; 99152; C1725; C1769; J1644; Q9967

== ENCOUNTER → 2022-11-20 09:40 | Outpatient (CLI) | payer MEDICARE, BC, SELFPAY ==
--- NOTE | 2022-11-20 09:44 | CA_ITS ---
FINAL REPORT TECHNIQUE: Color Doppler, duplex Doppler and díaz scale sonography of the bilateral neck arterial vasculature was performed. Velocities were measured in the carotid arteries. Stenosis evaluation based on the validated velocity criteria. CLINICAL HISTORY: tylor, CAD, HTN, hyperlipidemia, AFIB, AAA, PHTN, previous carotid ultrasound (MÓNICA 20-49%, LICA 50-69%) FINDINGS: The peak systolic velocity of the right common carotid artery is 78 cm/s. The peak systolic velocity of the right internal carotid artery is 66 cm/s and end diastolic velocity 23 cm/s. The ICA/CCA ratio is 0.85. A mild amount of plaque is present. The right external carotid artery is patent. The right vertebral artery is patent with antegrade flow. The peak systolic velocity of the left common carotid artery is 95 cm/s. The peak systolic velocity of the left internal carotid artery is 143 cm/s and end diastolic velocity 56 cm/s. The ICA/CCA ratio is 1.5. A mild amount of plaque is present. The left external carotid artery is patent.The left vertebral artery is patent with antegrade flow. IMPRESSION: Less than 50% bilateral carotid stenoses. Bilateral patent vertebral arteries with antegrade flow. If indicated, CTA or MRA could further evaluate. Reviewed, Interpreted and Dictated by Fritz Houser III, MD Transcribed by Shaina Gipson Authenticated and [facility]
== END ==
PROVIDERS: PCP Family Medicine; Visit Provider Nurse Practitioner Family
DX: E78.2 Mixed hyperlipidemia (principal); I11.9 Hypertensive heart disease without heart failure; I25.10 Atherosclerotic heart disease of native coronary artery without angina pectoris; I27.20 Pulmonary hypertension, unspecified; I35.0 Nonrheumatic aortic (valve) stenosis; I65.23 Occlusion and stenosis of bilateral carotid arteries; Z79.01 Long term (current) use of anticoagulants; Z95.5 Presence of coronary angioplasty implant and graft; I48.20 Chronic atrial fibrillation, unspecified; I71.40 Abdominal aortic aneurysm, without rupture, unspecified
CPT/HCPCS: 93880

== ENCOUNTER → 2023-01-29 08:10 | Outpatient (CLI) | payer MEDICARE, BC, SELFPAY ==
[2023-01-29 08:51] LABS: Basophils % 0.5 % (0.1-2.0); Eosinophils # 0.3 K/mm3 (0.0-0.4); Eosinophils % 3.2 % (0.1-12.0); Hematocrit 35.8 % (42.0-52.0); Hemoglobin 11.4 g/dL (14.1-18.0); Lymphocytes # 1.7 K/mm3 (0.7-4.5); Lymphocytes % 19.9 % (10-50); Mean Corpuscular HGB Conc 31.8 g/dL (31.8-35.4); Mean Corpuscular Hemoglobin 24.7 pg (27.0-31.2); Mean Corpuscular Volume 77.6 fl (80-94); Mean Platelet Volume 7.7 fl (7.4-10.4); Monocytes # 0.7 K/mm3 (0.1-1.0); Monocytes % 8.5 % (1.7-9.3); Neutrophils # 5.7 K/mm3 (1.8-7.8); Neutrophils % 67.9 % (37.0-80.0); Platelet Count 292 K/mm3 (142-424); Red Blood Count 4.61 M/mm3 (4.60-6.20); White Blood Count 8.4 K/mm3 (4.8-10.8)
[2023-01-29 09:40] LABS: Anion Gap 15.8 mEq/L (5-15); Blood Urea Nitrogen 18 mg/dl (9-20); Calcium 9.2 mg/dl (8.4-10.2); Carbon Dioxide 31 mmol/L (22.0-30.0); Chloride 99 mmol/L (98-107); Estimated Glomerular Filt Rate 71 ml/min (>60); GFR (African American) 86 ML/MIN (>60); Glucose 93 mg/dl (74-100); Potassium 3.8 mmoL/L (3.5-5.1); Sodium 142 mmol/L (136-145)
== END ==
PROVIDERS: PCP Family Medicine; Visit Provider Nurse Practitioner Family
DX: E78.2 Mixed hyperlipidemia (principal); I11.9 Hypertensive heart disease without heart failure; I25.10 Atherosclerotic heart disease of native coronary artery without angina pectoris; I27.20 Pulmonary hypertension, unspecified; I35.0 Nonrheumatic aortic (valve) stenosis; I65.29 Occlusion and stenosis of unspecified carotid artery; I71.43 Infrarenal abdominal aortic aneurysm, without rupture; Z79.01 Long term (current) use of anticoagulants; Z95.5 Presence of coronary angioplasty implant and graft; I48.20 Chronic atrial fibrillation, unspecified; I71.40 Abdominal aortic aneurysm, without rupture, unspecified
CPT/HCPCS: 36415; 80048; 85025

== ENCOUNTER → 2023-03-12 11:25 | Outpatient (CLI) | payer MEDICARE, BC, SELFPAY ==
[2023-03-12 12:59] LABS: Basophils % 0.3 % (0.1-2.0); Eosinophils # 0.1 K/mm3 (0.0-0.4); Eosinophils % 1.4 % (0.1-12.0); Lymphocytes # 0.9 K/mm3 (0.7-4.5); Lymphocytes % 12.3 % (10-50); Mean Corpuscular HGB Conc 28.7 g/dL (31.8-35.4); Mean Corpuscular Hemoglobin 22.1 pg (27.0-31.2); Mean Corpuscular Volume 76.9 fl (80-94); Mean Platelet Volume 9.3 fl (7.4-10.4); Monocytes # 0.6 K/mm3 (0.1-1.0); Neutrophils # 5.9 K/mm3 (1.8-7.8); Neutrophils % 77.9 % (37.0-80.0); Platelet Count 251 K/mm3 (142-424); Red Blood Count 2.64 M/mm3 (4.60-6.20); Red Cell Distribution Width 18.9 % (11.5-17.5); White Blood Count 7.6 K/mm3 (4.8-10.8)
[2023-03-12 13:13] LABS: Hematocrit 20.3 % (42.0-52.0)
[2023-03-12 13:16] LABS: Hemoglobin 5.8 g/dL (14.1-18.0)
== END ==
PROVIDERS: PCP Family Medicine; Visit Provider Physician Assistant
DX: D50.0 Iron deficiency anemia secondary to blood loss (chronic) (principal)
CPT/HCPCS: 36415; 85025; 86850

== ENCOUNTER 2023-03-13 08:40 | Outpatient (CLI) | payer MEDICARE, BC, SELFPAY ==
[2023-03-13] VITALS (17 sets, daily range): BP systolic 100–153; BP diastolic 52–76; PULSE 67–97; RESP 17–18; TEMP 35.9–36.5; O2SAT 18–100; BMI 24.8
[2023-03-13 14:05] LABS: Hematocrit 24.7 % (42.0-52.0); Hemoglobin 7.6 g/dL (14.1-18.0)
== END 2023-03-13 13:45 | disposition home or self-care (01) ==
LOC: INF 08:41
PROVIDERS: PCP Family Medicine; Visit Provider Family Medicine
DX: D50.0 Iron deficiency anemia secondary to blood loss (chronic) (principal)
CPT/HCPCS: 36430; 85014; 85018; P9016

== ENCOUNTER 2023-03-14 10:10 | Outpatient (CLI) | payer MEDICARE, BC, SELFPAY ==
[2023-03-14] VITALS (10 sets, daily range): BP systolic 100–122; BP diastolic 45–75; PULSE 70–90; RESP 14–16; TEMP 36.7–37; O2SAT 97–100; BMI 24.8
--- NOTE | 2023-03-14 10:21 | PC.NURSE ---
Addendum entered by Tracy Zimmer RN 03/14/23 10:22: for symptomatic anemia (weakness and fatigue)* Original Note: Deepthi Chavez spoke to Shy Cano RN with Dr. Cheung's office, wants pt to have 1 unit PRBC's for symptomatic weakness.
--- NOTE | 2023-03-14 11:20 | PC.NURSE ---
Blood transfusion titrated to 150 ml/hr.
--- NOTE | 2023-03-14 11:50 | PC.NURSE ---
Blood transfusion titrated to 250 ml/hr
[2023-03-14 14:14] LABS: Basophils % 0.3 % (0.1-2.0); Eosinophils # 0.2 K/mm3 (0.0-0.4); Eosinophils % 2.7 % (0.1-12.0); Hematocrit 25.6 % (42.0-52.0); Hemoglobin 7.6 g/dL (14.1-18.0); Lymphocytes % 15.1 % (10-50); Mean Corpuscular HGB Conc 29.8 g/dL (31.8-35.4); Mean Corpuscular Hemoglobin 24.1 pg (27.0-31.2); Mean Corpuscular Volume 80.7 fl (80-94); Mean Platelet Volume 11.7 fl (7.4-10.4); Monocytes # 0.6 K/mm3 (0.1-1.0); Monocytes % 9.2 % (1.7-9.3); Neutrophils # 4.6 K/mm3 (1.8-7.8); Neutrophils % 72.7 % (37.0-80.0); Platelet Count 202 K/mm3 (142-424); Red Blood Count 3.17 M/mm3 (4.60-6.20); Red Cell Distribution Width 18.6 % (11.5-17.5); White Blood Count 6.4 K/mm3 (4.8-10.8)
== END 2023-03-14 13:30 | disposition home or self-care (01) ==
PROVIDERS: PCP Family Medicine; Visit Provider Family Medicine
DX: K62.5 Hemorrhage of anus and rectum (principal)
CPT/HCPCS: 36430; 85025; P9016

== ENCOUNTER 2023-03-18 09:19 | Outpatient (CLI) | payer MEDICARE, BC, SELFPAY ==
[2023-03-18] VITALS (11 sets, daily range): BP systolic 113–155; BP diastolic 60–95; PULSE 63–86; RESP 18; TEMP 36.1–36.3; O2SAT 97–99; BMI 24.8
--- NOTE | 2023-03-18 09:30 | PC.NURSE ---
08-spoke with ruben merrill rn for ; wants to order cbc and type and cross and transfuse prbc based on hgb if <10 for symptomatic anemia ( active gi bleed and weakness) ; called pt's daughter to have patient come in for blood transfusion;
--- NOTE | 2023-03-18 09:30 | PC.NURSE ---
0806-spoke with ruben merrill rn for ; wants to order cbc and type and cross and transfuse prbc based on hgb if <10; called pt's daughter to have patient come in for blood transfusion
[2023-03-18 09:54] LABS: Basophils % 0.5 % (0.1-2.0); Eosinophils # 0.2 K/mm3 (0.0-0.4); Hematocrit 27.2 % (42.0-52.0); Lymphocytes # 0.7 K/mm3 (0.7-4.5); Lymphocytes % 14.3 % (10-50); Mean Corpuscular HGB Conc 29.3 g/dL (31.8-35.4); Mean Corpuscular Hemoglobin 23.3 pg (27.0-31.2); Mean Corpuscular Volume 79.5 fl (80-94); Mean Platelet Volume 10.3 fl (7.4-10.4); Monocytes # 0.5 K/mm3 (0.1-1.0); Monocytes % 9.1 % (1.7-9.3); Neutrophils # 3.8 K/mm3 (1.8-7.8); Neutrophils % 73.1 % (37.0-80.0); Platelet Count 198 K/mm3 (142-424); Red Blood Count 3.42 M/mm3 (4.60-6.20); White Blood Count 5.2 K/mm3 (4.8-10.8)
--- NOTE | 2023-03-18 10:38 | PC.NURSE ---
1038-spoke with ruben merrill rn per to give pt 1 unit prbc, wait an hour for post h&h, and if pt's hgb close to 10 pt will not need another unit of prbc's but if pt's hgb doesn't go up pt to receive another unit.; pt also to stop taking xeralto and only take baby aspirin.
--- NOTE | 2023-03-18 14:15 | PC.NURSE ---
1415-notified ruben merrill rn with about post hgb 8.6;new order for pt to receive 1 more unit of prbcs tomorrow (03/19/23) and check a post h&h
[2023-03-18 14:16] LABS: Hematocrit 28.8 % (42.0-52.0); Hemoglobin 8.6 g/dL (14.1-18.0)
== END 2023-03-18 14:00 | disposition home or self-care (01) ==
LOC: INF 09:20
PROVIDERS: PCP Family Medicine; Visit Provider Family Medicine
DX: D50.0 Iron deficiency anemia secondary to blood loss (chronic) (principal)
CPT/HCPCS: 36430; 85014; 85018; 85025; 86850; P9016

== ENCOUNTER 2023-03-19 09:25 | Outpatient (CLI) | payer MEDICARE, BC, SELFPAY ==
[2023-03-19] VITALS (11 sets, daily range): BP systolic 112–125; BP diastolic 53–76; PULSE 76–90; RESP 18–20; TEMP 36.2–36.6; O2SAT 98–99; BMI 24.8
[2023-03-19 12:58] LABS: Hemoglobin 9.1 g/dL (14.1-18.0)
--- NOTE | 2023-03-19 14:51 | PC.NURSE ---
Contacted Shy in Dr. Cheung's office, updated report on pt and post infusion h/h results discussed for today. Pt reported feeling much better. Shy discussed this with and decision was made for pt to f/u with MD in 1 week, unless pt condition changes. Contacted pt's daughter per pt request and updated her of pt condition.
== END 2023-03-19 12:48 | disposition home or self-care (01) ==
LOC: INF 09:26
PROVIDERS: PCP Family Medicine; Visit Provider Family Medicine
DX: D50.0 Iron deficiency anemia secondary to blood loss (chronic) (principal)
CPT/HCPCS: 36430; 85014; 85018; P9016

== ENCOUNTER 2023-04-02 11:15 | Day surgery (SDC) | payer MEDICARE, BC, SELFPAY ==
[2023-04-02 11:52] VITALS: BP 143/80; PULSE 74; RESP 18; TEMP 37; O2SAT 99; BMI 24.8
--- NOTE | 2023-04-02 12:51 | P.PNANES_ITS ---
[facility] Disclaimer: The information contained in this section may have been updated after the patient was seen, as this information can be updated by other users. Medical History Abdominal aortic aneurysm (AAA) Atrial fibrillation CAD (coronary artery disease) HHD (hypertensive heart disease) HLD (hyperlipidemia) LV dysfunction Rectal bleeding Surgical History Stented coronary artery Family History Other Family history of diabetes mellitus type II Social History Smoking Status: Never smoker second hand exposure: No alcohol intake: never substance use type: denies use current occupational status: retired Travel in the last 8 weeks: None household members: none housing: house lives independently: Yes marital status: education level: high school service: Yes ([employer]) current occupational exposures/hazards: No caffeine: Yes do you feel safe at home: Yes victim of physical abuse: No victim of emotional abuse: No victim of sexual abuse: No would you like helpful sources: No [facility] Anesthesia Checklist Patient Identification Patient Identification: Arm Band and Verbal (Name & ) Structural Data Admitted From: Home Planned Operative Procedure/s: EGD/ Colonoscopy Consent for Planned Operative Procedure(s) Verified: Yes Verified Documents: Surgical Consent NPO Status Verified Time NPO: 00:00 Airway Assessment C-Spine Mobility Assessed: Yes TMJ Mobility Assessed: Yes Dentition: Partials Neurological Assessment Level of Consciousness: Awake and Alert Anesthesia Plan Anesthesia Risk discussed: Yes ASA Class: III Anesthesia Type: IV sedation
[2023-04-02 12:55] VITALS: O2SAT 99
--- NOTE | 2023-04-02 13:24 | P.PCN_ITS ---
Procedure: Date: 04/02/23 Patient Date of :: 1935 Procedure Performed:: EGD Indications:: The patient is an 87 year old who presents for EGD evaluation of anemia. The patient has a history of atrial fibrillation on xarelto (stopped approximately 1 month ago). He relates a history of chronic intermittent BRBPR episodes. He had anemia with Hgb 7.5 gm in 2020 evaluated by bidirectional endoscopy and reports having had a small bowel capsule endoscopy. Performing Provider:: Forrest Chester MD Referring Provider:: YOHAN Cheung MD Sedation:: See RN records Procedure:: The gastroscope was gently passed through the incisoral orifice into the oral cavity and under direct visualization the esophagus was intubated. The endoscope was passed down the esophagus, through the stomach, and into the duodenum. [place] r, texture, mucosa, and anatomy of the esophagus, stomach, and duodenum were carefully examined with the scope. Findings:: Oropharynx: normal Esophagus: normal EG Junction: measured at 45 cm Cardia: normal Fundus: normal Body: normal Antrum: normal Duodenal bulb: normal Duodenum (second and third portion): normal Impression: Normal appearing esophagus, stomach and duodenum Recommendations:: Move forward to colonoscopy for evaluation of anemia Complications:: none Estimated blood obtained (mL): 0 Colonoscopy Component Colonoscopy Component Was a colonoscopy performed during today's procedure?: No
[2023-04-02 13:26] VITALS: BP 125/75; PULSE 80; RESP 16; TEMP 36.2; O2SAT 99
--- NOTE | 2023-04-02 13:28 | P.PCN_ITS ---
Procedure: Date: 04/02/23 Patient Date of :: 1935 Procedure Performed:: Colonoscopy Indications:: The patient is an 87 year old who presents for colonoscopy evaluation of anemia. The patient has chronic anticoagulation use with xarelto for atrial fibrillation (stopped approximately 1 month ago). He relates a history of chronic intermittent BRPBR. He had anemia with Hgb 7.5 gm in 2020 evaluated by bidi rectional endoscopy and reports having had a small bowel capsule (report not available for review). Performing Provider:: Forrest Chester MD Referring Provider:: YOHAN Cheung MD Sedation:: See RN records Procedure:: After placing the patient in the left lateral decubitus position, the colonoscopy was gently inserted into the rectum and under direct visualization advanced to the cecum which was identified by transillumination in the right lower quadrant, identification of the ileocecal valve, appendiceal orifice, and cecal strap. Color, texture, mucosa, and anatomy of the colon were carefully examined with the scope. Findings:: Anal canal: normal Rectum: Hemorrhoids. Two diminutive polyps. Removed with cold forceps Sigmoid colon: normal without polyps or inflammatory changes Descending colon: normal without polyps or inflammatory changes Splenic flexure: normal Transverse colon: normal without polyps or inflammatory changes Hepatic flexure: normal Ascending colon: normal without polyps or inflammatory changes Cecum: normal Terminal ileum: not visualized Impression: Dimminutive rectal polyps x 2 Recommendations:: Await pathology results Obtain patient's last small bowel capsule endoscopy study. In setting of aortic stenosis, patient could have had bleedng related to angiodysplasia of small bowel. Consideration could be for repeat small bowel capsule for evaluation of anemia. Complications:: none Estimated blood obtained (mL): 0 Colonoscopy Component Colonoscopy Component Was a colonoscopy performed during today's procedure?: Yes Recommended follow up colonoscopy of at least 10 years?: No If no, follow up colonoscopy recommended in ___ years?: No further surviellance colonoscopy can be recommended due to age Reason for not recommending >/= 10 yr follow-up interval?: See above
[2023-04-02 13:36] VITALS: BP 114/82; PULSE 74; RESP 16; TEMP 36.2; O2SAT 99
[2023-04-02 13:46] VITALS: BP 141/70; PULSE 74; RESP 18; O2SAT 100
[2023-04-02 14:04] VITALS: BP 149/71; PULSE 68; RESP 18; TEMP 36.2; O2SAT 100
--- NOTE | 2023-04-02 14:08 | HMH.SCOPE ---
Procedure: Patient Date of :: 1935 Procedure Performed:: Colonoscopy Indications:: The patient is a
== END 2023-04-02 14:04 | disposition home or self-care (01) ==
PROVIDERS: PCP Family Medicine; Visit Provider Internal Medicine
PROC: 0DJ08ZZ Inspection of Upper Intestinal Tract, Via Natural or Artificial Opening Endoscopic (ICD-10-PCS; CPT 43235; principal; 2023-04-02 12:30)
DX: D64.9 Anemia, unspecified (principal); D12.8 Benign neoplasm of rectum; Z79.01 Long term (current) use of anticoagulants; I48.91 Unspecified atrial fibrillation; K64.8 Other hemorrhoids
CPT/HCPCS: 43235; 45380; 88305

== ENCOUNTER → 2023-07-11 07:46 | Outpatient (CLI) | payer MEDICARE, BC, SELFPAY ==
--- NOTE | 2023-07-11 07:54 | US_ITS ---
FINAL REPORT CLINICAL HISTORY: AAA FINDINGS: Sonographic images of the aorta was obtained. Aorta measures 3.0 cm consistent with ectasia. IMPRESSION: Ectasia of the abdominal aorta without evidence of aneurysm. Reviewed, Interpreted and Dictated by Fritz Houser III, MD Transcribed by Tamika Polanco Authenticated and [facility]
== END ==
PROVIDERS: PCP Family Medicine; Visit Provider Thoracic Surgery (Cardiothoracic Vascular Surgery)
DX: I71.40 Abdominal aortic aneurysm, without rupture, unspecified (principal)
CPT/HCPCS: 76705

== ENCOUNTER 2023-09-09 11:41 | Outpatient (CLI) | payer MEDICARE, BC, SELFPAY ==
[2023-09-09 12:21] LABS: Basophils # 0.1 K/mm3 (0-0.2); Basophils % 0.5 % (0.1-2.0); Eosinophils # 0.1 K/mm3 (0.0-0.4); Eosinophils % 0.9 % (0.1-12.0); Hematocrit 38.5 % (42.0-52.0); Hemoglobin 11.9 g/dL (14.1-18.0); Lymphocytes # 1.3 K/mm3 (0.7-4.5); Lymphocytes % 12.1 % (10-50); Mean Corpuscular HGB Conc 30.9 g/dL (31.8-35.4); Mean Corpuscular Hemoglobin 26.1 pg (27.0-31.2); Mean Corpuscular Volume 84.7 fl (80-94); Mean Platelet Volume 8.4 fl (7.4-10.4); Monocytes # 0.7 K/mm3 (0.1-1.0); Monocytes % 6.5 % (1.7-9.3); Neutrophils # 8.8 K/mm3 (1.8-7.8); Platelet Count 407 K/mm3 (142-424); Red Blood Count 4.55 M/mm3 (4.60-6.20); Red Cell Distribution Width 18.3 % (11.5-17.5)
[2023-09-09 12:49] LABS: Alanine Aminotransferase 38 U/L (12-78); Albumin Level 3.6 g/dl (3.5-5.0); Alkaline Phosphatase 198 U/L (38-126); Anion Gap 10.6 mEq/L (5-15); Aspartate Amino Transferase 48 U/L (17-59); Bilirubin,Direct 0.2 mg/dl (0.0-0.4); Bilirubin,Indirect 0.9 mg/dL (0.0-0.9); Bilirubin,Total 1.1 mg/dl (0.2-1.3); Bilirubin,Unconjugated 0.9 mg/dL (0.0-1.1); Blood Urea Nitrogen 18 mg/dl (9-20); Calcium 8.6 mg/dl (8.4-10.2); Carbon Dioxide 28 mmol/L (22.0-30.0); Chloride 105 mmol/L (98-107); Chol/HDL Ratio 3.9 (1-3.5); Cholesterol 74 mg/dl (140-200); Estimated Glomerular Filt Rate 80 ml/min (>60); GFR (African American) 97 ML/MIN (>60); Glucose 129 mg/dl (74-100); HDL Cholesterol 19 mg/dl (40-60); Magnesium 2.1 mg/dl (1.6-2.3); Potassium 3.6 mmoL/L (3.5-5.1); Sodium 140 mmol/L (136-145); Total Protein,Serum 7.1 g/dl (6.3-8.2); Triglycerides 109 mg/dl (30-150); VLDL Cholesterol 22 mg/dL (0-40)
[2023-09-09 13:00] LABS: Direct LDL Cholesterol 45.23 mg/dL (100-129)
[2023-09-09 13:40] LABS: NT Pro Brain Natriuretic Pep. 2020 pg/mL (0-450)
[2023-09-09 13:48] LABS: Free T4 (Free Thyroxine) 1.43 ng/dl (0.78-2.19)
[2023-09-09 14:01] LABS: Thyroid Stimulating Hormone 5.85 uIU/mL (0.465-4.68)
== END 2023-09-09 23:59 ==
LOC: LAB 11:44
PROVIDERS: PCP Family Medicine; Visit Provider Physician Assistant
DX: E78.5 Hyperlipidemia, unspecified (principal); I11.9 Hypertensive heart disease without heart failure; I25.10 Atherosclerotic heart disease of native coronary artery without angina pectoris; I27.20 Pulmonary hypertension, unspecified; I35.0 Nonrheumatic aortic (valve) stenosis; I48.20 Chronic atrial fibrillation, unspecified; I65.29 Occlusion and stenosis of unspecified carotid artery; I71.40 Abdominal aortic aneurysm, without rupture, unspecified; Z95.5 Presence of coronary angioplasty implant and graft; Z95.818 Presence of other cardiac implants and grafts; K62.5 Hemorrhage of anus and rectum; R06.2 Wheezing; R09.89 Other specified symptoms and signs involving the circulatory and respiratory systems
CPT/HCPCS: 36415; 80048; 80061; 80076; 83735; 83880; 84439; 84443; 85025; 93225

== ENCOUNTER 2023-10-20 11:11 | Outpatient (CLI) | payer MEDICARE, BC, SELFPAY | END 2023-10-20 23:59 | LOC: RT 11:12 | PROVIDERS: PCP Family Medicine; Visit Provider Physician Assistant | DX: I48.91 Unspecified atrial fibrillation (principal) | CPT/HCPCS: 93270 ==

== ENCOUNTER 2023-12-18 10:54 | Outpatient (CLI) | payer MEDICARE, BC, SELFPAY ==
[2023-12-18 12:45] LABS: Anion Gap 9.5 mEq/L (5-15); Blood Urea Nitrogen 27 mg/dl (9-20); Calcium 9.9 mg/dl (8.4-10.2); Carbon Dioxide 33 mmol/L (22.0-30.0); Chloride 101 mmol/L (98-107); Estimated Glomerular Filt Rate 80 ml/min (>60); GFR (African American) 97 ML/MIN (>60); Glucose 96 mg/dl (74-100); Potassium 4.5 mmoL/L (3.5-5.1); Sodium 139 mmol/L (136-145)
== END 2023-12-18 23:59 ==
LOC: LAB 10:56
PROVIDERS: PCP Family Medicine; Visit Provider Nurse Practitioner
DX: I48.91 Unspecified atrial fibrillation (principal); Z79.899 Other long term (current) drug therapy
CPT/HCPCS: 36415; 80048

== ENCOUNTER 2024-02-18 07:25 | Day surgery (SDC) | payer MEDICARE, BC, SELFPAY ==
[2024-02-18] VITALS (7 sets, daily range): BP systolic 118–136; BP diastolic 67–88; PULSE 59–94; RESP 18; TEMP 36.6; O2SAT 93–97; BMI 22.4
--- NOTE | 2024-02-18 07:49 | ECG_ITS ---
APPROVED REPORT Exam: Resting ECG HR:92 bpm ECG Measurements Heart Rate 92 AXES QRSd 96 QRS 68 QT 362 T -2 QTc 412 Conclusion ATRIAL FIBRILLATION NONSPECIFIC T-WAVE ABNORMALITY ABNORMAL ECG UNCONFIRMED REPORT Electronically signed by : Juan Carlos Marcelino MD 02/18/2024 15:02:58
--- NOTE | 2024-02-18 07:55 | CA_ITS ---
APPROVED REPORT EXAM: Comprehensive 2D, Doppler, and color-flow Echocardiogram Fur Sewer: Rebecca Moreira PIEDAD Ht: 5 ft 11 in Wt: 169lbs BSA: 1.96 BP: 117/69 mmHg Indications: Atrial Fibrillation Procedure After obtaining informed consent, patient underwent transesophageal echo in the [facility]. Type of Sedation : MAC Sedation was administered by Sammy LaceyR.N.AJayashree Sedation start time: 09:55 Case end Time: 10:15 Transesophageal probe was inserted and advanced into esophagus without difficulty by Dr. Donell Jason. The FANNY was performed without complications. Synchronized Cardioversion acheived with 150 Joules after 1 attempt(s). Rhythm following Synchronized Cardioversion: Normal Sinus Rhythm Throughout the procedure, the blood pressure, pulse oximetry, cardiac rhythm, and rate were monitored. The patient tolerated the procedure without adverse effects. Recovery from conscious sedation was uneventful and vital signs were stable. Left Ventricle The left ventricle is normal size. Left ventricular systolic function is mildly to moderately decreased. There is normal left ventricular wall thickness. There is mild global hypokinesis present. There is moderate hypokinesis of the inferior LV wall. LVEF is 40%. Right Ventricle The right ventricle is normal size. Right ventricle is mildly hypokinetic. Atria The left atrium is dilated. There is a Watchman device present. The device is well-seated at the orifice of the left atrial appendage in the appropriate position. No evidence device masses or thrombi. Trace quyen-device leak is noted posteriorly. The right atrium size is normal. s/p iatrogenic ASD. Aortic Valve The aortic valve is mildly thickened. The aortic valve is trileaflet. There is no aortic valvular stenosis. Mild aortic regurgitation. Mitral Valve The mitral valve is normal in structure. No evidence of mitral valve stenosis. Mild aortic regurgitation. Tricuspid Valve The tricuspid valve leaflets are thin and pliable. Moderate tricuspid regurgitation. RVSP is 30 mmHg + RA pressure. Pulmonic Valve The pulmonary valve is normal in structure. Mild pulmonic regurgitation. Great Vessels The aortic root is normal in size. The ascending aorta is normal in size. Pericardium There is no pericardial effusion. Other Information Study Quality: Adequate Conclusion Mildly to moderately reduced LV systolic function (LVEF 40%). Moderate hypokinesis of the inferior LV wall. Normal RV size with mild reduction in RV function. LA dilation. There is a Watchman device present. The device is well-seated at the orifice of the left atrial appendage in the appropriate position. No evidence device masses or thrombi. Trace quyen-device leak is noted posteriorly. Mild, mild AI, mild MD. Moderate TR. RVSP 30 mmHg + RA pressure. s/p iatrogenic ASD (Watchman procedure). Once FANNY demonstrated no evidence of thrombi in the setting of a well-seated Watchman device, he underwent 1 attempt DCCV with 150J, after which she successfully converted to normal sinus rhythm. Electronically signed by : Dagmar Jason MD 02/19/2024 11:16:48
--- NOTE | 2024-02-18 07:56 | P.PNANES_ITS ---
[facility] Disclaimer: The information contained in this section may have been updated after the patient was seen, as this information can be updated by other users. Medical History JVD (jugular venous distension) Atrial fibrillation with RVR Presence of Watchman left atrial appendage closure device Rectal bleeding LV dysfunction Abdominal aortic aneurysm (AAA) Atrial fibrillation HLD (hyperlipidemia) HHD (hypertensive heart disease) CAD (coronary artery disease) Surgical History Stented coronary artery Family History Other Family history of diabetes mellitus type II Social History (Updated 02/18/24 @ 07:39 by Kassy Diaz RN) Smoking Status: Never smoker second hand exposure: No alcohol intake: never substance use type: denies use current occupational status: retired Travel in the last 8 weeks: None household members: none housing: house lives independently: Yes marital status: education level: high school service: Yes ([employer]) current occupational exposures/hazards: No caffeine: Yes do you feel safe at home: Yes victim of physical abuse: No victim of emotional abuse: No victim of sexual abuse: No would you like helpful sources: No [facility] Anesthesia Checklist Patient Identification Patient Identification: Arm Band and Verbal (Name & ) Structural Data Admitted From: Home Planned Operative Procedure/s: FANNY/Cardioversion Consent for Planned Operative Procedure(s) Verified: Yes Verified Documents: Surgical Consent and History and Physical NPO Status Verified Time NPO: 00:00 Additional verifications Anesthesia Reactions: No Airway Assessment Mallampati Score:: Class III C-Spine Mobility Assessed: Yes TMJ Mobility Assessed: Yes Dentition: Partials (removed) Neurological Assessment Level of Consciousness: Awake Hx Seizures: No Numbness or tingling in extremities: No Anesthesia Plan Anesthesia Risk discussed: Yes Anesthesia Plan: Verified ASA Class: IV Anesthesia Type: MAC
[2024-02-18 08:06] LABS: Basophils # 0.1 K/mm3 (0-0.2); Basophils % 0.7 % (0.1-2.0); Eosinophils # 0.2 K/mm3 (0.0-0.4); Eosinophils % 2.5 % (0.1-12.0); Hematocrit 45.6 % (42.0-52.0); Lymphocytes # 1.5 K/mm3 (0.7-4.5); Lymphocytes % 17.8 % (10-50); Mean Corpuscular HGB Conc 32.9 g/dL (31.8-35.4); Mean Corpuscular Hemoglobin 31.2 pg (27.0-31.2); Mean Corpuscular Volume 94.8 fl (80-94); Mean Platelet Volume 8.4 fl (7.4-10.4); Monocytes # 0.8 K/mm3 (0.1-1.0); Monocytes % 9.4 % (1.7-9.3); Neutrophils # 5.8 K/mm3 (1.8-7.8); Neutrophils % 69.5 % (37.0-80.0); Platelet Count 210 K/mm3 (142-424); Red Blood Count 4.81 M/mm3 (4.60-6.20); Red Cell Distribution Width 17.2 % (11.5-17.5); White Blood Count 8.4 K/mm3 (4.8-10.8)
[2024-02-18 08:12] LABS: Chloride 105 mmol/L (98-107); Potassium 3.8 mmoL/L (3.5-5.1); Sodium 141 mmol/L (136-145)
[2024-02-18 08:15] LABS: Anion Gap 9.8 mEq/L (5-15); Blood Urea Nitrogen 23 mg/dl (9-20); Carbon Dioxide 30 mmol/L (22.0-30.0); Creatinine Clearance Estimated 56 mL/min (50-200); Estimated Glomerular Filt Rate 71 ml/min (>60); GFR (African American) 86 ML/MIN (>60)
[2024-02-18 08:16] LABS: Calcium 9.9 mg/dl (8.4-10.2); Glucose 104 mg/dl (74-100)
[2024-02-18 08:30] LABS: Activated Partial Thrombo Time 29.6 seconds (22.8-30.6); INR 1.09 (0.9-1.1); Prothrombin Time 11.7 seconds (10.1-12.5)
[2024-02-18] MEDS: LACTATED RINGERS 1000ML 1,000 ML 25 ML IV (08:46)
[2024-02-18] MEDS: LACTATED RINGERS 1000ML 1,000 ML 999 ML IV (08:48)
--- NOTE | 2024-02-18 10:16 | ECG_ITS ---
APPROVED REPORT Exam: Resting ECG HR:59 bpm ECG Measurements Heart Rate 59 AXES FL 229 P 23 QRSd 101 QRS 64 QT 469 T 69 QTc 468 Conclusion SINUS BRADYCARDIA WITH FIRST DEGREE AV BLOCK NONSPECIFIC T-WAVE ABNORMALITY PROLONGED QT INTERVAL ABNORMAL ECG UNCONFIRMED REPORT Electronically signed by : Juan Carlos Marcelino MD 02/18/2024 15:02:45
--- NOTE | 2024-02-18 13:57 | SUR.OPER ---
1005- pt cardioverted by at this time. 150j shock delivered. pt in sinus rhythm, vss.
== END 2024-02-18 11:03 | disposition home or self-care (01) ==
PROVIDERS: PCP Family Medicine; Visit Provider Internal Medicine
DX: I71.40 Abdominal aortic aneurysm, without rupture, unspecified (principal); I65.29 Occlusion and stenosis of unspecified carotid artery; I27.20 Pulmonary hypertension, unspecified; I11.9 Hypertensive heart disease without heart failure; I48.20 Chronic atrial fibrillation, unspecified; I25.10 Atherosclerotic heart disease of native coronary artery without angina pectoris; E78.2 Mixed hyperlipidemia; Z95.818 Presence of other cardiac implants and grafts
CPT/HCPCS: 80048; 85025; 85610; 85730; 92960; 93005; 93270; 93312; 93319; J7120

== ENCOUNTER 2024-06-14 10:25 | Outpatient (CLI) | payer MEDICARE, BC, SELFPAY | END 2024-06-14 23:59 | disposition home or self-care (01) | LOC: RT 10:28 | PROVIDERS: PCP Family Medicine; Visit Provider Physician Assistant | DX: R00.1 Bradycardia, unspecified (principal); I48.91 Unspecified atrial fibrillation | CPT/HCPCS: 93225; 93227 ==

== ENCOUNTER 2024-06-24 11:07 | Outpatient (CLI) | payer MEDICARE, BC, SELFPAY ==
--- NOTE | 2024-06-24 11:22 | XR_ITS ---
FINAL REPORT CLINICAL HISTORY: on amiodarone therapy COMPARISON: 11/02/2022 FINDINGS: 2 views of the chest were obtained . The heart is normal in size. The mediastinum is within normal limits. The lungs are clear. There is no pneumothorax. Osseous structures are unremarkable. IMPRESSION: No acute cardiopulmonary process. Reviewed, Interpreted and Dictated by Tod Puente MD Transcribed by Tamika Polanco Authenticated and [facility]
[2024-06-24 11:29] LABS: Basophils # 0.1 K/mm3 (0-0.2); Basophils % 0.7 % (0.1-2.0); Eosinophils # 0.1 K/mm3 (0.0-0.4); Eosinophils % 1.1 % (0.1-12.0); Hemoglobin 15.2 g/dL (14.1-18.0); Lymphocytes # 1.2 K/mm3 (0.7-4.5); Lymphocytes % 11.2 % (10-50); Mean Corpuscular HGB Conc 34.6 g/dL (31.8-35.4); Mean Corpuscular Hemoglobin 32.7 pg (27.0-31.2); Mean Corpuscular Volume 94.7 fl (80-94); Mean Platelet Volume 7.7 fl (7.4-10.4); Monocytes % 8.8 % (1.7-9.3); Neutrophils # 8.6 K/mm3 (1.8-7.8); Neutrophils % 78.1 % (37.0-80.0); Platelet Count 224 K/mm3 (142-424); Red Blood Count 4.65 M/mm3 (4.60-6.20)
[2024-06-24 12:17] LABS: Alanine Aminotransferase 52 U/L (12-78); Albumin Level 4.4 g/dl (3.5-5.0); Alkaline Phosphatase 176 U/L (38-126); Aspartate Amino Transferase 52 U/L (17-59); Bilirubin,Direct 0.2 mg/dl (0.0-0.4); Bilirubin,Indirect 0.7 mg/dL (0.0-0.9); Bilirubin,Total 0.9 mg/dl (0.2-1.3); Bilirubin,Unconjugated 0.7 mg/dL (0.0-1.1); Blood Urea Nitrogen 23 mg/dl (9-20); Calcium 9.8 mg/dl (8.4-10.2); Carbon Dioxide 33 mmol/L (22.0-30.0); Chloride 105 mmol/L (98-107); Chol/HDL Ratio 3.7 (1-3.5); Cholesterol 149 mg/dl (140-200); Estimated Glomerular Filt Rate 52 ml/min (>60); GFR (African American) 63 ML/MIN (>60); Glucose 75 mg/dl (74-100); HDL Cholesterol 40 mg/dl (40-60); Sodium 138 mmol/L (136-145); Total Protein,Serum 7.3 g/dl (6.3-8.2); Triglycerides 220 mg/dl (30-150); VLDL Cholesterol 44 mg/dL (0-40)
[2024-06-24 12:28] LABS: Direct LDL Cholesterol 65.26 mg/dL (100-129)
== END 2024-06-24 23:59 | disposition home or self-care (01) ==
LOC: LAB 11:08
PROVIDERS: PCP Family Medicine; Visit Provider Physician Assistant
DX: E78.2 Mixed hyperlipidemia (principal); Z95.818 Presence of other cardiac implants and grafts; I65.29 Occlusion and stenosis of unspecified carotid artery; I27.20 Pulmonary hypertension, unspecified; I25.10 Atherosclerotic heart disease of native coronary artery without angina pectoris; I11.9 Hypertensive heart disease without heart failure; I71.40 Abdominal aortic aneurysm, without rupture, unspecified; I48.20 Chronic atrial fibrillation, unspecified; Z95.5 Presence of coronary angioplasty implant and graft; Z79.899 Other long term (current) drug therapy
CPT/HCPCS: 36415; 71046; 80048; 80061; 80076; 83735; 84439; 84443; 85025

== ENCOUNTER 2024-07-13 07:18 | Outpatient (CLI) | payer MEDICARE, BC, SELFPAY ==
--- NOTE | 2024-07-13 | US_ITS ---
FINAL REPORT CLINICAL HISTORY: FU AAA COMPARISON: 07/11/2023 FINDINGS: Sonographic images were obtained of the abdominal aorta. The abdominal aorta measures up to 3.7 cm in greatest dimensions, larger than noted on the prior exam of 2022. The common iliac arteries are within normal limits. IMPRESSION: There is increased ectasia of the abdominal aorta when compared to the prior exam, currently measures 3.7 cm in greatest diameter. Authenticated and [facility]
== END 2024-07-13 23:59 | disposition home or self-care (01) ==
LOC: RAD 07:19
PROVIDERS: PCP Family Medicine; Visit Provider Nurse Practitioner Family
DX: I71.43 Infrarenal abdominal aortic aneurysm, without rupture (principal)
CPT/HCPCS: 76705

== ENCOUNTER 2024-08-09 14:07 | Outpatient (CLI) | payer MEDICARE, BC, SELFPAY ==
[2024-08-09 14:49] LABS: Albumin Level 4.3 g/dl (3.5-5.0); Chloride 107 mmol/L (98-107); Potassium 4.3 mmoL/L (3.5-5.1); Sodium 144 mmol/L (136-145)
[2024-08-09 14:51] LABS: Blood Urea Nitrogen 24 mg/dl (9-20); Estimated Glomerular Filt Rate 57 ml/min (>60); GFR (African American) 69 ML/MIN (>60)
[2024-08-09 14:52] LABS: Alanine Aminotransferase 53 U/L (12-78); Alkaline Phosphatase 177 U/L (38-126); Anion Gap 10.3 mEq/L (5-15); Aspartate Amino Transferase 53 U/L (17-59); Basophils % 0.5 % (0.1-2.0); Bilirubin,Direct 0.1 mg/dl (0.0-0.4); Bilirubin,Indirect 0.6 mg/dL (0.0-0.9); Bilirubin,Total 0.7 mg/dl (0.2-1.3); Bilirubin,Unconjugated 0.6 mg/dL (0.0-1.1); Calcium 9.7 mg/dl (8.4-10.2); Carbon Dioxide 31 mmol/L (22.0-30.0); Cholesterol 141 mg/dl (140-200); Eosinophils # 0.2 K/mm3 (0.0-0.4); Eosinophils % 1.9 % (0.1-12.0); Glucose 87 mg/dl (74-100); Hematocrit 42.1 % (42.0-52.0); Hemoglobin 14.3 g/dL (14.1-18.0); Lymphocytes # 1.5 K/mm3 (0.7-4.5); Lymphocytes % 18.3 % (10-50); Magnesium 2.3 mg/dl (1.6-2.3); Mean Corpuscular Hemoglobin 32.2 pg (27.0-31.2); Mean Corpuscular Volume 94.8 fl (80-94); Mean Platelet Volume 7.7 fl (7.4-10.4); Monocytes # 0.7 K/mm3 (0.1-1.0); Monocytes % 8.1 % (1.7-9.3); Neutrophils # 5.8 K/mm3 (1.8-7.8); Neutrophils % 71.3 % (37.0-80.0); Platelet Count 220 K/mm3 (142-424); Red Blood Count 4.45 M/mm3 (4.60-6.20); Red Cell Distribution Width 14.6 % (11.5-17.5); Total Protein,Serum 7.4 g/dl (6.3-8.2); Triglycerides 180 mg/dl (30-150); VLDL Cholesterol 36 mg/dL (0-40); White Blood Count 8.1 K/mm3 (4.8-10.8)
[2024-08-09 14:53] LABS: Chol/HDL Ratio 4.1 (1-3.5); HDL Cholesterol 34 mg/dl (40-60)
[2024-08-09 15:03] LABS: Direct LDL Cholesterol 66.55 mg/dL (100-129)
[2024-08-09 15:23] LABS: Thyroid Stimulating Hormone 6.22 uIU/mL (0.465-4.68)
== END 2024-08-09 23:59 | disposition home or self-care (01) ==
LOC: LAB 14:08
PROVIDERS: PCP Family Medicine; Visit Provider Physician Assistant
DX: R00.1 Bradycardia, unspecified (principal); I51.9 Heart disease, unspecified; R06.00 Dyspnea, unspecified; I65.29 Occlusion and stenosis of unspecified carotid artery; I35.0 Nonrheumatic aortic (valve) stenosis; E78.2 Mixed hyperlipidemia; I25.10 Atherosclerotic heart disease of native coronary artery without angina pectoris; E78.5 Hyperlipidemia, unspecified; I71.40 Abdominal aortic aneurysm, without rupture, unspecified; I11.0 Hypertensive heart disease with heart failure
CPT/HCPCS: 36415; 80048; 80061; 80076; 83735; 84439; 84443; 85025

== ENCOUNTER 2024-08-11 08:18 | Observation (INO) | payer MEDICARE, BC, SELFPAY ==
[2024-08-11] VITALS (19 sets, daily range): BP systolic 134–197; BP diastolic 52–91; PULSE 36–72; RESP 14–20; TEMP 36.1–36.7; O2SAT 97–100; BMI 23.7
--- NOTE | 2024-08-11 08:35 | ECG_ITS ---
APPROVED REPORT Exam: Resting ECG HR:37 bpm ECG Measurements Heart Rate 37 AXES LA 226 P 47 QRSd 100 QRS 79 QT 439 T 55 QTc 355 Conclusion SINUS BRADYCARDIA WITH FIRST DEGREE AV BLOCK POSSIBLE RIGHT ATRIAL ENLARGEMENT [0.25mV P-WAVE] LEFT VENTRICULAR HYPERTROPHY AND ST-T CHANGE [VOLTAGE CRITERIA PLUS ST/T ABNORMALITY] CRITICAL TEST RESULT UNCONFIRMED REPORT Electronically signed by : Johann Medrano, 08/11/2024 15:02:50
--- NOTE | 2024-08-11 08:36 | XR_ITS ---
FINAL REPORT CLINICAL HISTORY: Shortness of breath COMPARISON: 06/24/2024 FINDINGS: A single portable view of the chest was obtained. The heart size is enlarged. The pulmonary vascularity is within normal limits. The mediastinum is within normal limits. Mild bibasilar opacities are favored to represent atelectasis over pneumonia. The bony thorax is intact. IMPRESSION: Mild bibasilar opacities favor atelectasis over pneumonia. Reviewed, Interpreted and Dictated by Fritz Houser III, MD Transcribed by Afia Odell Authenticated and [facility]
--- NOTE | 2024-08-11 08:36 | CT_ITS ---
FINAL REPORT CLINICAL HISTORY: near syncope; head injury COMPARISON: 06/01/2020 FINDINGS: Axial CT images of the cervical spine were obtained without contrast. Sagittal and coronal reformatted images were also obtained. This study was performed with techniques to keep radiation doses as low as reasonably achievable (ALARA). Individualized dose reduction techniques using automated exposure control or adjustment of mA and/or kV according to the patient's size were employed. There is no evidence of fracture or dislocation. The bony alignment is normal. There is mild degenerative change. Multilevel osteophytes are noted. Multilevel neuroforaminal narrowing is noted. There is no evidence of canal stenosis. No paraspinous soft tissue abnormality is seen. Note is made of carotid artery calcifications. IMPRESSION: No fracture or acute bony abnormality identified. Reviewed, Interpreted and Dictated by Fritz Houser III, MD Transcribed by Afia Odell Authenticated and [facility]
--- NOTE | 2024-08-11 08:36 | CT_ITS ---
FINAL REPORT CLINICAL HISTORY: near syncope; head injury COMPARISON: 06/01/2020 FINDINGS: Axial images of the head were obtained without contrast. Coronal reformatted images were also obtained. This study was performed with techniques to keep radiation doses as low as reasonably achievable (ALARA). Individualized dose reduction techniques using automated exposure control or adjustment of mA and/or kV according to the patient''s size were employed. There is generalized age-appropriate atrophy. Periventricular low-attenuation areas are seen consistent with mild chronic ischemic changes. There is no evidence of intracranial hemorrhage or mass. There is no evidence of acute infarct. There is no evidence of shift of the midline structures. No skull abnormality is seen on the bone window images. IMPRESSION: Atrophy and mild periventricular chronic ischemic changes. No acute intracranial abnormality identified. Reviewed, Interpreted and Dictated by Fritz Houser III, MD Transcribed by Afia Odell Authenticated and [facility]
--- NOTE | 2024-08-11 08:45 | PC.NURSE ---
patient gone to CT at this time.
--- NOTE | 2024-08-11 08:47 | ED_ITS ---
Discharge Plan Disposition Patient Disposition: Home, Self-Care Prescriptions Prescriptions: No Action levothyroxine 50 mcg capsule 100 mcg PO DAILY nitroglycerin 0.4 mg tablet, sublingual 0.4 mg SUBLINGUAL Q5MINP PRN (Reason: Chest Pain) Qty: 20 0RF vitamins A,C,E-kman-tiqzni [ICaps AREDS] [id number],320-226-200 usco-vu-xbxh capsule 1 cap PO BID rupzuudnkfae-jzgsxfuk-tgntth tablet 1 tab PO DAILY Slow Fe 142 mg (45 mg iron) tablet extended release 142 mg PO DAILY GoToTags 3 billion cell capsule 1 cap PO DAILY amiodarone 200 mg tablet 200 mg PO DAILY Qty: 30 5RF esomeprazole magnesium 40 mg capsule,delayed release(DR/EC) 40 mg PO BID Qty: 30 6RF furosemide [Lasix] 40 mg tablet 40 mg PO DAILY Qty: 30 5RF clopidogrel 75 mg tablet 75 mg PO DAILY 90 Days Qty: 90 3RF atorvastatin 40 mg tablet See Rx Instructions .ROUTE .COMPLEX Rx Instructions: TAKE ONE TABLET BY MOUTH EVERY NIGHT AT BEDTIME FOR CHOLESTEROL Referrals Follow up/Referrals: Fidelia Cheung MD [Primary Care Provider] - See instructions Clinical Impressions Clinical Impression: Symptomatic bradycardia, Syncope and collapse, Avulsion of forehead Print Language Print Language: Hungarian Discharge ED Provider: Marleni Medrano General Adult HPI General Chief complaint: Fall Stated complaint: AO 0630, fell, inj head and left arm Time Seen by Provider: 08/11/24 08:27 Mode of Arrival: Wheelchair Source of Information: Patient Limitations: No Limitations Description of Symptoms (Recalled from ER Triage Doc. by RN): Patient reports that he got a little dizzy this morning and stumbled into his tv hitting his head and left arm. States that he has been having dizzy spells lately and is supposed to have a pacemaker placed on Friday. History of Present Illness HPI narrative: Patient is an 88-year-old male with a history of known symptomatic bradycardia scheduled for an outpatient procedure to have a pacemaker placed this Friday who presents today with persistent dizziness and syncope/near syncope episode this morning that resulted in a head injury. Struck the forehead on a TV sustaining a small abrasion with some bleeding. Has been off anticoagulants bleeding has not been profuse. Denies any significant neck chest abdomen pelvis or other long bone pain. He did strike his left elbow but has normal and full range of motion without pain. He is off beta-blockers and calcium channel blockers from historical standpoint. Related Data Home Medications ?Medication ?Instructions ?Recorded ?Confirmed ujbwcijcgpit-zbskfbmu-kgyssb tablet 1 tab PO DAILY Supplement 04/28/18 08/09/24 vitamins A,C,E-wkxh-onpoaq 4,296 1 cap PO BID Supplement 04/28/18 08/09/24 mcg-226 mg-90 mg capsule (ICaps AREDS) atorvastatin 40 mg tablet See Rx Instructions .Route 11/11/22 08/09/24 .COMPLEX . Lactobacillus rhamnosus-Bifidobac. 1 cap PO DAILY Supplement 12/19/22 08/09/24 animalis 3 billion cell capsule (GoToTags) ferrous sulfate 142 mg (45 mg 142 mg PO DAILY Supplement 12/19/22 08/09/24 iron) tablet,extended release (Slow Fe) levothyroxine 50 mcg capsule 100 mcg PO DAILY thyroid 08/02/24 08/09/24 Previous Rx's ?Medication ?Instructions ?Recorded nitroglycerin 0.4 mg sublingual 0.4 mg sublingual Q5MINP PRN Chest 12/20/20 tablet Pain #20 tabs esomeprazole magnesium 40 mg 40 mg PO BID GERD #30 caps 04/29/23 capsule,delayed release furosemide 40 mg tablet (Lasix) 40 mg PO DAILY #30 tabs 05/21/24 amiodarone 200 mg tablet 200 mg PO DAILY #30 tabs 06/24/24 clopidogrel 75 mg tablet 75 mg PO DAILY 90 days #90 tabs 06/29/24 Allergies Allergy/AdvReac Type Severity Reaction Status Date / Time No Known Allergies Allergy Verified 08/09/24 13:14 [facility] Disclaimer: The information contained in this section may have been updated after the patient was seen, as this information can be updated by other users. Medical History On amiodarone therapy Bradycardia JVD (jugular venous distension) Atrial fibrillation with RVR Presence of Watchman left atrial appendage closure device Rectal bleeding LV dysfunction Abdominal aortic aneurysm (AAA) Atrial fibrillation HLD (hyperlipidemia) HHD (hypertensive heart disease) CAD (coronary artery disease) Surgical History Stented coronary artery Family History Other Family history of diabetes mellitus type II Social History Smoking Status: Unknown if ever smoked second hand exposure: No alcohol intake: never substance use type: denies use current occupational status: retired Travel in the last 8 weeks: None household members: none housing: house lives independently: Yes marital status: education level: high school service: Yes ([employer]) current occupational exposures/hazards: No caffeine: No do you feel safe at home: Yes victim of physical abuse: No victim of emotional abuse: No victim of sexual abuse: No would you like helpful sources: No Other Medical History Have you received the Flu Vaccine for this season: Yes Have you received the Pneumonia Vaccine: Yes ROS Obtained: Yes All systems reviewed & no additional complaints except as documented Physical Exam General General appearance: alert Respiratory Respiratory exam: Present normal lung sounds bilaterally Cardiovascular Cardiovascular exam: Present bradycardia (Heart rate in the 30s on my exam but good peripheral perfusion regular) Neurological Exam Neurological exam: Present alert and oriented X3; Absent CN II-XII intact, normal gait or motor sensory deficit Medical Decision Making Medical Records Screening: Per USPSTF and CDC recommendations, given the prevalence of disease in our region, it is our hospital?s policy to screen for HIV and viral Hepatitis for all patients aged 18 and over and those with ongoing risk factors. Danny Inquiry Pt receiving controlled substance: No Vital Signs: 08/11/24 08:20 08/11/24 08:31 08/11/24 09:01 Temperature 98.0 F Temperature Source Oral Pulse Rate 37 L 39 L Pulse Rate [Radial] 45 L Respiratory Rate 18 17 Blood Pressure 153/58 H 136/63 Blood Pressure [Right Arm] 134/52 L Blood Pressure Mean [Right Arm] 79 Blood Pressure Source [Right Arm] Automatic Cuff Blood Pressure Position [Right Arm] Sitting 02 Sat by Pulse Oximetry 99 100 98 Oxygen Delivery Method Room Air 08/11/24 09:31 Temperature Temperature Source Pulse Rate 37 L Pulse Rate [Radial] Respiratory Rate 16 Blood Pressure 143/56 H Blood Pressure [Right Arm] Blood Pressure Mean [Right Arm] Blood Pressure Source [Right Arm] Blood Pressure Position [Right Arm] 02 Sat by Pulse Oximetry 97 Oxygen Delivery Method Lab Data Lab results reviewed: Yes I reviewed the patient's lab results. Lab Results 08/11/24 08:40: WBC 10.0, RBC 4.67, Hgb 15.2, Hct 44.6, MCV 95.6 H, MCH 32.5 H, MCHC 34.0, RDW 14.6, Plt Count 206, MPV 7.6, Neut % (Auto) 86.4 H, Lymph % (Auto) 7.5 L, [place] % (Auto) 4.8, Eos % (Auto) 1.0, Baso % (Auto) 0.3, Neut # (Auto) 8.6 H, Lymph # (Auto) 0.8, [place] # (Auto) 0.5, Eos # (Auto) 0.1, Baso # (Auto) 0.0, Total Counted 100, Neutrophils % (Manual) 83 H, Lymphocytes % (Manual) 14, Monocytes % (Manual) 2, Eosinophils % (Manual) 1, Platelet Estimate Normal, RBC Morphology Normal, PT 11.6, INR 1.04, APTT 26.3, Sodium 146 H, Potassium 3.6, Chloride 107, Carbon Dioxide 30, Anion Gap 12.6, BUN 28 H, C reatinine 1.30 H, Estimated Creat Clear 46, Estimated GFR 52 L, Est GFR ( Amer) 63, Glucose 104 H, Calcium 9.9, Magnesium 2.1, Total Bilirubin 0.7, AST 55, ALT 55, Alkaline Phosphatase 175 H, Troponin I 0.03, NT-Pro-B Natriuret Pep 1430 H, Total Protein 7.7, Albumin 4.6, Globulin 3.1, Albumin/Globulin Ratio 1.5, TSH 7.82 H D, HIV 1&2 Antibody Rapid Nonreactive 08/11/24 08:40 08/11/24 08:40 Orders (Tests/Meds): ORDERS Category Date Time Status CT cervical spine wo con Stat Cat Scan 08/11/24 08:[address] head/brain wo con Stat Cat Scan 08/11/24 08:36 Completed CXR --portable [XR chest portable] Stat Exams 08/11/24 08:36 Completed BNP [NT Pro Brain Natriuretic Pep.] Stat Lab 08/11/24 08:40 Completed CBC w/Auto Diff [Complete Blood Count Auto Diff] Stat Lab 08/11/24 08:40 Completed CMP [Comprehensive Metabolic Panel] Stat Lab 08/11/24 08:40 Completed HIV (1&2) Antibody Rapid Stat Lab 08/11/24 08:40 Completed Hep C Ab with Reflex to RNA Stat Lab 08/11/24 08:40 Received Magnesium Stat Lab 08/11/24 08:40 Completed PT/PTT Stat Lab 08/11/24 08:40 Completed TSH [Thyroid Stimulating Hormone] Stat Lab 08/11/24 08:40 Completed Trop I [Troponin I] Stat Lab 08/11/24 08:40 Completed Troponin I Q3H Lab 08/11/24 11:45 Ordered Troponin I Q3H Lab 08/11/24 14:45 Ordered CA echo doppler complete Stat Y 08/11/24 10:09 Ordered ECG Data Tracing #1: I reviewed this ECG and interpreted as documented below: Ventricular rate of 37 sinus bradycardia no dropped P waves or obvious high degree of block no acute ischemic changes noted normal axis there is evidence of LVH Medical Decision Narrative: Patient is an 88-year-old male with above history and physical with a known history of heart failure with reduced ejection fraction and sinus bradycardia scheduled for an outpatient pacemaker presenting today with syncopal episode. Patient is extremely high risk for serious cardiac events especially in the setting of loss of consciousness and trauma. Will get a CT scan of his head and cervical spine and basic panel of labs including electrolytes troponin TSH etc. I will then discussed the case with Dr. Love believe the patient needs to be held in the hospital until he gets his pacemaker placed. Current heart rate is 37 with good peripheral perfusion no indication for atropine, transcutaneous pacing, transvenous pacing, or pressors at the moment. CT scans performed which I personally interpreted which showed no evidence of significant or life-threatening traumatic injuries. Labs otherwise unremarkable other than TSH that is elevated but has been elevated in the past. No other significant abnormalities to cause today symptoms. I discussed the case with Dr. Love and he agrees that the patient needs a pacemaker he will be placed on the schedule for today. He asked for an echo which I have ordered. I have discussed the case with hospital medicine who will admit. Critical Care Critical Care Time Critical Care Time: Yes Attestation: On 08/11/24, the high probability of a clinically significant, sudden or life threatening deterioration of the following system(s) required my full and direct attention, intervention and personal management. The time I documented below is in addition to time spent performing reported procedures but includes the following listed in this critical care notation. Total Time Total Critical Care Time: 35
[2024-08-11 08:53] LABS: Albumin Level 4.6 g/dl (3.5-5.0); Chloride 107 mmol/L (98-107); Sodium 146 mmol/L (136-145)
[2024-08-11 08:54] LABS: Potassium 3.6 mmoL/L (3.5-5.1)
[2024-08-11 08:56] LABS: Alanine Aminotransferase 55 U/L (12-78); Albumin/Globulin Ratio 1.5 (1.1-1.8); Anion Gap 12.6 mEq/L (5-15); Aspartate Amino Transferase 55 U/L (17-59); Basophils % 0.3 % (0.1-2.0); Bilirubin,Total 0.7 mg/dl (0.2-1.3); Blood Urea Nitrogen 28 mg/dl (9-20); Carbon Dioxide 30 mmol/L (22.0-30.0); Creatinine Clearance Estimated 46 mL/min (50-200); Eosinophils # 0.1 K/mm3 (0.0-0.4); Estimated Glomerular Filt Rate 52 ml/min (>60); GFR (African American) 63 ML/MIN (>60); Globulin 3.1 g/dL (1.3-3.2); Hematocrit 44.6 % (42.0-52.0); Hemoglobin 15.2 g/dL (14.1-18.0); Lymphocytes # 0.8 K/mm3 (0.7-4.5); Lymphocytes % 7.5 % (10-50); Mean Corpuscular Hemoglobin 32.5 pg (27.0-31.2); Mean Corpuscular Volume 95.6 fl (80-94); Mean Platelet Volume 7.6 fl (7.4-10.4); Monocytes # 0.5 K/mm3 (0.1-1.0); Monocytes % 4.8 % (1.7-9.3); Neutrophils # 8.6 K/mm3 (1.8-7.8); Neutrophils % 86.4 % (37.0-80.0); Platelet Count 206 K/mm3 (142-424); Red Blood Count 4.67 M/mm3 (4.60-6.20); Red Cell Distribution Width 14.6 % (11.5-17.5); Total Protein,Serum 7.7 g/dl (6.3-8.2)
[2024-08-11 08:57] LABS: Alkaline Phosphatase 175 U/L (38-126); Calcium 9.9 mg/dl (8.4-10.2); Glucose 104 mg/dl (74-100); Magnesium 2.1 mg/dl (1.6-2.3)
[2024-08-11 09:00] LABS: MANUAL DIFFERENTIAL MANUAL DIFFERENTIAL (MANUAL DIFF)
[2024-08-11 09:03] LABS: Activated Partial Thrombo Time 26.3 seconds (22.8-30.6); INR 1.04 (0.9-1.1); Prothrombin Time 11.6 seconds (10.1-12.5)
[2024-08-11 09:06] LABS: NT Pro Brain Natriuretic Pep. 1430 pg/mL (0-450)
[2024-08-11 09:09] LABS: Troponin I 0.03 ng/ml (0.00-0.034)
[2024-08-11 09:20] LABS: Eosinophils % 1 % (0-3); Lymphocytes % 14 % (10-50); Monocytes % 2 % (2-9); Neutrophils % 83 % (42-76); Platelet Estimate Normal; RBC Morphology Normal; Total Cells Counted 100
[2024-08-11 09:27] LABS: Thyroid Stimulating Hormone 7.82 uIU/mL (0.465-4.68)
[2024-08-11 09:55] LABS: HIV (1&2) Antibody Rapid NONREACTIVE (NONREACTIVE)
--- NOTE | 2024-08-11 10:09 | CA_ITS ---
APPROVED REPORT EXAM: Comprehensive 2D, Doppler, and color-flow Echocardiogram Spine Nurse: Mili Nathan, RCS, RVS Ht: 6 ft 0 in Wt: 178lbs BSA: 2.03 BP: 135/80 mmHg Indications: Heart block-Bradycardia, Hx-Afib, Watchman device, PHTN, HFrEF, HTN, HLD 2D Dimensions Left Atrium 4.13 cm M: 3.0 - 4.0 LA Volume 138.30 mL LA Volume Index 68.13 mL/m2 (M/F) 16-34 M-Mode Dimensions RVDd 2.81 cm (0.9-2.6) LA Diam 5.83 cm (1.9-4.0) LVDd 5.04 cm (3.5-5.7) LVDs 3.38 cm (3.5-5.7) IVSd 1.18 cm (0.6-1.1) PWd 1.18 cm (0.6-1.1) EF (Teich) 61.20% EPSs 0.72 cm FS 32.90% EDV (Teich) 120.50 mL TAPSE 1.83 (<1.7) ESV (Teich) 46.80 mL LV Diastology E Decel Time 193 (160-240 msec) E/A Ratio 3.71 MED A' 4.70 cm/s LAT A' 3.90 cm/s Aortic Valve JESSEE Index 1.31 cm2/m2 AoV Peak Channing. 125.0 (50-130 cm/s) AI PHT 964.00 ms AO Peak GR. 6.30 mmHg AO Mean GR. 3.10 (<5 mmHg) AO VTI 33.1 (18-25 cm) JESSEE (VTI) 2.72 (2.5-4.5 cm2) Mitral Valve MV A Velocity 25.0 (40-130 cm/s) E/A Ratio 3.71 Pulmonary Valve PV Peak Velocity 77.0 (50-150 cm/s) SC End VMAX 113.0 cm/s Tricuspid Valve TR P. Velocity 237.00 cm/s RAP Estimate 10.00 mmHg RVSP 32.50 mmHg Left Ventricle The left ventricle is normal size. The left ventricular systolic function is normal. The left ventricular ejection fraction is within the normal range. There is increased LV wall thickness. There is normal LV segmental wall motion. Diastolic function is indeterminate. LVEF is 55%. Right Ventricle The right ventricle is normal size. The right ventricular systolic function is normal. Atria The left atrium is moderately dilated.. The right atrium size is is moderately dilated. There is no Doppler evidence of interatrial shunt. Aortic Valve The aortic valve is mildly thickened. There is no aortic valvular stenosis. Mild aortic regurgitation. Mitral Valve The mitral valve is normal in structure. No evidence of mitral valve stenosis. Trace mitral regurgitation. Tricuspid Valve The tricuspid valve leaflets are thin and pliable. Mild tricuspid regurgitation. RVSP is normal. Pulmonic Valve The pulmonary valve is normal in structure. Trace pulmonic regurgitation. Great Vessels The aortic root is normal in size. IVC is normal in size and collapses >50% with inspiration. Pericardium There is no pericardial effusion. Other Information Study Quality: Fair Conclusion Normal biventricular systolic function. Biatrial dilation. Mild AI, mild TR. Electronically signed by : Dagmar Jason MD 08/11/2024 12:32:15
--- NOTE | 2024-08-11 10:20 | IR_ITS ---
APPROVED REPORT Patient Location: Inpatient Director Oncology: TUNDE De La Cruz RT (R) PROCEDURES 1. Pocket formation for Permanent Pacemaker Placement. 2. Placement of an atrial sensing and pacing coil into the right atrial appendage. 3. Placement of a ventricular sensing and pacing coil in the right ventricular apex. 4. Permanent Pacemaker Placement. INDICATION Sinus Node Disease Informed consent was obtained prior to the procedure. COMPLICATIONS None Estimated Blood Loss: Less than 10 mls TECHNIQUE 1% Lidocaine with epinephrine used to anesthetized the left anterior aspect of the chest. Scalpel was used to make the initial cutaneous incision while electrocautery was used to dissect down tinto the fascia. The fascia was lifted off the pectoralis muscle and digitally manipulated creating a pocket for the pacemaker. The patient was then placed in Trendelenburg position and the subclavian vein was accessed twice via the Selinger technique, there are two wires in the vein. A 6 [place] sheath was placed under fluoroscopic guidance into the subclavian vein over one of the wires while keeping the other wire in place within the subclavian vein. The dilator was removed from the sheath. Using fluoroscopic guidance, the ventricular lead was placed into the right ventricular apex, screwed and secured into place. Electronic interrogation proved acceptable thresholds and voltage within the lead. Using 3-0 silk, the ventricular lead was then secured into place. Lead was secured to the facia using the 3-0 silk. Following this, the sheath was pealed away. An additional 6 [place] fresh sheath and dilator was placed over the existing wire. Using fluoroscopic guidance, the atrial lead was the placed into the right atrial appendage and screwed and secured in place. Electrical interrogation demonstrated acceptable thresholds and voltage number. The atrial lead was then secured into place using 3-0 silk. 1 gram of Ancef was used to flush the pocket. Following the pacemaker generator being secured to the fascia and in place, Monocryl was used to close the subcutaneous layers while zoya were used to close the cutaneous layer. A pressure dressing was placed and the patient was transferred to the postop holding area in stable condition for postoperative care. INTERROGATION Generator Model number: [facility], [id number] Generator Serial number: [id number] Atrial lead model number: Tendril STS, 52cm, [id number] Atrial lead serial number: [id number] P-wave: 5mV Impedance: 410 ohms Threshold: 1.5V@0.4ms Right Ventricular lead model number: Jo STS, 58cm, 2087TC Right Ventricular lead serial number: [id number] R-wave: 6.5mV Impedance: 440 ohms, 0.5V@0.4ms Threshold: Pacing Parameters: Mode: DDDR Base/Max Track: 70 ppm / 120 ppm No diaphragmatic stimulation at 10 volts. IMPRESSION 1. Successful pocket formation for Permanent Pacemaker Placement. 2. Successful placement of an atrial sensing and pacing coil into the right atrial appendage. 3. Successful placement of a ventricular sensing and pacing coil in the right ventricular apex. 4. Successful permanent Pacemaker Placement. PLAN 1. Post op wound care, follow up office visit Electronically signed by : Clifton Love MD 08/12/2024 11:50:21
--- NOTE | 2024-08-11 10:37 | PC.NURSE ---
Report called to CLAUDIA Tanner on Med Surg.
--- NOTE | 2024-08-11 10:38 | HMH.PHAINT1 ---
Pharmacy Intervention Comments: MEDICATION RECONCILIATION COMPLETED ON PATIENT USING EXTERNAL FILL HISTORY FROM PHARMACY AND LIST FROM CARDIOLOGY OFFICE. -GUERDA EISENBERG, SAED
--- NOTE | 2024-08-11 10:53 | PC.NURSE ---
arrived by w/c from ED
--- NOTE | 2024-08-11 11:38 | EXP.CARD.CON ---
History of Present Illness History of Present Illness Consult date: 08/11/24 Requesting physician: Van Stoll Chief complaint: symptomatic bradycardia Additional Medical History:: 1. Pulmonary hypertension 2. Paroxysmal atrial fibrillation A. No oral anticoagulation due to Watchman device B. FANNY/cardioversion attempted 02/26/2024-transient success C. Amiodarone started 03/2024 3. AAA A. Aortic ultrasound showing ectasia of the abdominal aorta measuring 3.7 cm, 07/2024 4. Carotid artery stenosis less than 50% bilaterally in 2022 5. Chronic anemia managed by PCP and GI 6. Symptomatic bradycardia A. Holter monitor showing average heart rate at 44 bpm with lows in the 30s, 06/2020 History of present illness: 88-year-old white male admitted for symptomatic bradycardia with recent falls. Holter monitor showing heart rate on average in the 40s with rates dipping into the 30s. Recently discontinued diltiazem with no improvement in symptoms and patient admitted for permanent place maker implantation today. [facility] Disclaimer: The information contained in this section may have been updated after the patient was seen, as this information can be updated by other users. Medical History On amiodarone therapy Bradycardia JVD (jugular venous distension) Atrial fibrillation with RVR Presence of Watchman left atrial appendage closure device Rectal bleeding LV dysfunction Abdominal aortic aneurysm (AAA) Atrial fibrillation HLD (hyperlipidemia) HHD (hypertensive heart disease) CAD (coronary artery disease) Surgical History Stented coronary artery Family History Other Family history of diabetes mellitus type II Social History Smoking Status: Unknown if ever smoked second hand exposure: No alcohol intake: never substance use type: denies use current occupational status: retired Travel in the last 8 weeks: None household members: none housing: house lives independently: Yes marital status: education level: high school service: Yes ([employer]) current occupational exposures/hazards: No caffeine: No do you feel safe at home: Yes victim of physical abuse: No victim of emotional abuse: No victim of sexual abuse: No would you like helpful sources: No Review of Systems Review of Systems Review of systems:: pertinent systems reviewed and negative unless documented below ENT Ears, Nose, Mouth, and Throat: Reports abnormal hearing *Cardiovascular Cardiovascular: Denies chest pain *Neurologic Neurologic: Reports abnormal hearing Exam Data for Last 24 hours Vital signs and Labs for Last 24 Hours: Temp Pulse Resp BP Pulse Ox O2 Del Method 98.0 F 36 L 14 146/56 H 99 Room Air 08/11/24 10:37 08/11/24 10:37 08/11/24 10:37 08/11/24 10:37 08/11/24 10:30 08/11/24 10:37 Laboratory Results - last 24 hr 08/11/24 08:40: WBC 10.0, RBC 4.67, Hgb 15.2, Hct 44.6, MCV 95.6 H, MCH 32.5 H, MCHC 34.0, RDW 14.6, Plt Count 206, MPV 7.6, Neut % (Auto) 86.4 H, Lymph % (Auto) 7.5 L, [place] % (Auto) 4.8, Eos % (Auto) 1.0, Baso % (Auto) 0.3, Neut # (Auto) 8.6 H, Lymph # (Auto) 0.8, [place] # (Auto) 0.5, Eos # (Auto) 0.1, Baso # (Auto) 0.0, Total Counted 100, Neutrophils % (Manual) 83 H, Lymphocytes % (Manual) 14, Monocytes % (Manual) 2, Eosinophils % (Manual) 1, Platelet Estimate Normal, RBC Morphology Normal, PT 11.6, INR 1.04, APTT 26.3, Sodium 146 H, Potassium 3.6, Chloride 107, Carbon Dioxide 30, Anion Gap 12.6, BUN 28 H, Creatinine 1.30 H, Estimated Creat Clear 46, Estimated GFR 52 L, Est GFR ( Amer) 63, Glucose 104 H, Calcium 9.9, Magnesium 2.1, Total Bilirubin 0.7, AST 55, ALT 55, Alkaline Phosphatase 175 H, Troponin I 0.03, NT-Pro-B Natriuret Pep 1430 H, Total Protein 7.7, Albumin 4.6, Globulin 3.1, Albumin/Globulin Ratio 1.5, TSH 7.82 H D, HIV 1&2 Antibody Rapid Nonreactive I & O for Last 24 hours: Intake & Output 08/08/24 08/09/24 08/10/24 08/11/24 11:59 11:59 11:59 11:59 Weight 175 lb Constitutional Constitutional: no acute distress Comments: Bandages on forehead and left elbow due to recent fall into television stand this morning. Bandages on nose due to recent dermatologic procedure *Routine Respiratory Exam Respiratory: Present CTA bilaterally *Routine Cardiovascular Exam Cardiovascular: Present bradycardia *Routine Neurological Exam Neurological: Present alert, oriented X3 and CN II-XII intact Meds Home Medications and Allergies Home Medications ?Medication ?Instructions ?Recorded ?Confirmed ?Type pghogsaigivg-gfwomdli-phoqdj tablet 1 tab PO DAILY 04/28/18 08/11/24 History atorvastatin 40 mg tablet 40 mg PO HS 11/11/22 08/11/24 History Lactobacillus rhamnosus-Bifidobac. 1 cap PO DAILY 12/19/22 08/11/24 History animalis 3 billion cell capsule ([employer]) furosemide 40 mg tablet (Lasix) 40 mg PO DAILY #30 tabs 05/21/24 08/11/24 Rx amiodarone 200 mg tablet 200 mg PO DAILY #30 tabs 06/24/24 08/11/24 Rx clopidogrel 75 mg tablet 75 mg PO DAILY 90 days #90 tabs 06/29/24 08/11/24 Rx bisoprolol fumarate 10 mg tablet 10 mg PO DAILY 08/11/24 08/11/24 History levothyroxine 100 mcg tablet 100 mcg PO DAILY 08/11/24 08/11/24 History New Prescriptions to Start Prescriptions: Allergies Allergy/AdvReac Type Severity Reaction Status Date / Time No Known Allergies Allergy Verified 08/09/24 13:14 Assessment and Plan *Assessment and plan (1) Symptomatic bradycardia: Status: Acute Category: Medical Code(s): R00.1 - Bradycardia, unspecified (2) Syncope and collapse: Status: Acute Category: Medical Code(s): R55 - Syncope and collapse (3) Avulsion of forehead: Status: Acute Category: Medical Code(s): S01.80XA - Unspecified open wound of other part of head, initial encounter (4) On amiodarone therapy: Status: Acute Category: Medical Code(s): Z79.899 - Other snf (current) drug therapy (5) Atrial fibrillation: Status: Chronic Qualifiers: Atrial fibrillation type: chronic Qualified Code(s): I48.2 - Chronic atrial fibrillation Category: Medical Code(s): I48.91 - Unspecified atrial fibrillation (6) CAD (coronary artery disease): Status: Chronic Qualifiers: Associated angina: without angina Coronary Disease-Associated Artery/Lesion type: [place] artery [place] vs. transplanted heart: [place] heart Qualified Code(s): I25.10 - Atherosclerotic heart disease of [place] coronary artery without angina pectoris Category: Medical Code(s): I25.10 - Atherosclerotic heart disease of [place] coronary artery without angina pectoris (7) Presence of Watchman left atrial appendage closure device: Status: Acute Category: Medical Code(s): Z95.818 - Presence of other cardiac implants and grafts Plan 1. Symptomatic bradycardia with heart rate in the 30s and 40s -Permanent pacemaker placement today -Echocardiogram today prior to implantation to decide if patient needs BiV pacemaker -Head CT obtained due to near syncope, no acute injury. Notation made of atrophy and mild periventricular chronic ischemic changes. 2. Coronary artery disease -Cardiac catheterization 11/2022 mild to moderate coronary artery disease 3. Paroxysmal atrial fibrillation -No OAC due to Watchman -On amiodarone for maintenance of sinus rhythm 4. History of chronic anemia -Hemoglobin 15.2 today 5. CKD, mild with creatinine 1.3 and GFR 52 6. Elevated BNP likely secondary to bradycardia -Chest x-ray negative for effusions or edema 7. Dyslipidemia with LDL 66 Permanent pacemaker today with echocardiogram to decide if BiV pacemaker needed. Anticipate home in AM if stable.
--- NOTE | 2024-08-11 12:09 | P.HP_ITS ---
[facility] Disclaimer: The information contained in this section may have been updated after the patient was seen, as this information can be updated by other users. Medical History On amiodarone therapy Bradycardia JVD (jugular venous distension) Atrial fibrillation with RVR Presence of Watchman left atrial appendage closure device Rectal bleeding LV dysfunction Abdominal aortic aneurysm (AAA) Atrial fibrillation HLD (hyperlipidemia) HHD (hypertensive heart disease) CAD (coronary artery disease) Surgical History Stented coronary artery Family History Other Family history of diabetes mellitus type II Social History Smoking Status: Unknown if ever smoked second hand exposure: No alcohol intake: never substance use type: denies use current occupational status: retired Travel in the last 8 weeks: None household members: none housing: house lives independently: Yes marital status: education level: high school service: Yes ([employer]) current occupational exposures/hazards: No caffeine: No do you feel safe at home: Yes victim of physical abuse: No victim of emotional abuse: No victim of sexual abuse: No would you like helpful sources: No Other Medical History Have you received the Flu Vaccine for this season: No Have you received the Pneumonia Vaccine: No Review of Systems ENT Ears, Nose, Mouth, and Throat: Reports abnormal hearing *Neurologic Neurologic: Reports abnormal hearing Meds Home Medications and Allergies Home Medications ?Medication ?Instructions ?Recorded ?Confirmed ?Type fmzgnynrrksj-hnvusvxq-skdwce tablet 1 tab PO DAILY 04/28/18 08/11/24 History atorvastatin 40 mg tablet 40 mg PO HS 11/11/22 08/11/24 History Lactobacillus rhamnosus-Bifidobac. 1 cap PO DAILY 12/19/22 08/11/24 History animalis 3 billion cell capsule ([employer]) furosemide 40 mg tablet (Lasix) 40 mg PO DAILY #30 tabs 05/21/24 08/11/24 Rx amiodarone 200 mg tablet 200 mg PO DAILY #30 tabs 06/24/24 08/11/24 Rx clopidogrel 75 mg tablet 75 mg PO DAILY 90 days #90 tabs 06/29/24 08/11/24 Rx bisoprolol fumarate 10 mg tablet 10 mg PO DAILY 08/11/24 08/11/24 History levothyroxine 100 mcg tablet 100 mcg PO DAILY 08/11/24 08/11/24 History New Prescriptions to Start Prescriptions: Allergies Allergy/AdvReac Type Severity Reaction Status Date / Time No Known Allergies Allergy Verified 08/09/24 13:14 Exam Data for Last 24 hours Vital signs and Labs for Last 24 Hours: Temp Pulse Resp BP Pulse Ox O2 Del Method 98.0 F 36 L 14 146/56 H 99 Room Air 08/11/24 10:37 08/11/24 10:37 08/11/24 10:37 08/11/24 10:37 08/11/24 10:30 08/11/24 10:37 Laboratory Results - last 24 hr 08/11/24 08:40: WBC 10.0, RBC 4.67, Hgb 15.2, Hct 44.6, MCV 95.6 H, MCH 32.5 H, MCHC 34.0, RDW 14.6, Plt Count 206, MPV 7.6, Neut % (Auto) 86.4 H, Lymph % (Auto) 7.5 L, [place] % (Auto) 4.8, Eos % (Auto) 1.0, Baso % (Auto) 0.3, Neut # (Auto) 8.6 H, Lymph # (Auto) 0.8, [place] # (Auto) 0.5, Eos # (Auto) 0.1, Baso # (Auto) 0.0, Total Counted 100, Neutrophils % (Manual) 83 H, Lymphocytes % (Manual) 14, Monocytes % (Manual) 2, Eosinophils % (Manual) 1, Platelet Estimate Normal, RBC Morphology Normal, PT 11.6, INR 1.04, APTT 26.3, Sodium 146 H, Po tassium 3.6, Chloride 107, Carbon Dioxide 30, Anion Gap 12.6, BUN 28 H, Creatinine 1.30 H, Estimated Creat Clear 46, Estimated GFR 52 L, Est GFR ( Amer) 63, Glucose 104 H, Calcium 9.9, Magnesium 2.1, Total Bilirubin 0.7, AST 55, ALT 55, Alkaline Phosphatase 175 H, Troponin I 0.03, NT-Pro-B Natriuret Pep 1430 H, Total Protein 7.7, Albumin 4.6, Globulin 3.1, Albumin/Globulin Ratio 1.5, TSH 7.82 H D, HIV 1&2 Antibody Rapid Nonreactive I & O for Last 24 hours: Intake & Output 08/08/24 08/09/24 08/10/24 08/11/24 23:59 23:59 23:59 23:59 Weight 79.379 kg
[2024-08-11 12:16] LABS: Troponin I 0.03 ng/ml (0.00-0.034)
[2024-08-11] MEDS: CEFAZOLIN SODIUM 1 GM in 0.9 % SODIUM CHLORIDE 50 ML IV (12:39)
[2024-08-11] MEDS: LIDOCAINE 1% W/EPI 1:100,000 20ML VIAL 20 ML SQ (12:40)
[2024-08-11] MEDS: 0.9 % SODIUM CHLORIDE 1000ML 1,000 ML 25 ML IV (12:40)
[2024-08-11] MEDS: CEFAZOLIN 1GM VIAL 1 GM TP (12:40)
--- NOTE | 2024-08-11 13:37 | EXP.ANES.CKL ---
[facility] Disclaimer: The information contained in this section may have been updated after the patient was seen, as this information can be updated by other users. Medical History On amiodarone therapy Bradycardia JVD (jugular venous distension) Atrial fibrillation with RVR Presence of Watchman left atrial appendage closure device Rectal bleeding LV dysfunction Abdominal aortic aneurysm (AAA) Atrial fibrillation HLD (hyperlipidemia) HHD (hypertensive heart disease) CAD (coronary artery disease) Surgical History Stented coronary artery Family History Other Family history of diabetes mellitus type II Social History Smoking Status: Unknown if ever smoked second hand exposure: No alcohol intake: never substance use type: denies use current occupational status: retired Travel in the last 8 weeks: None household members: none housing: house lives independently: Yes marital status: education level: high school service: Yes ([employer]) current occupational exposures/hazards: No caffeine: No do you feel safe at home: Yes victim of physical abuse: No victim of emotional abuse: No victim of sexual abuse: No would you like helpful sources: No [facility] Anesthesia Checklist Patient Identification Patient Identification: Arm Band Structural Data Admitted From: Home Planned Operative Procedure/s: Dual Chamber Pacemaker Consent for Planned Operative Procedure(s) Verified: Yes Verified Documents: Surgical Consent and History and Physical NPO Status Verified Time NPO: 00:00 Additional verifications Anesthesia Reactions: No Airway Assessment Mallampati Score:: Class II C-Spine Mobility Assessed: Yes TMJ Mobility Assessed: Yes Dentition: Poor Dentition Neurological Assessment Level of Consciousness: Awake, Alert and Appropriate Anesthesia Plan Anesthesia Risk discussed: Yes Anesthesia Plan: Verified ASA Class: IV Anesthesia Type: MAC
--- NOTE | 2024-08-11 13:49 | XR_ITS ---
FINAL REPORT CLINICAL HISTORY: Confirm pacemaker/AID placement COMPARISON: 08/11/2024 FINDINGS: SINGLE VIEW CHEST There is cardiomegaly. Left subclavian pacer is identified. The mediastinum is unremarkable. The lungs are clear. There is no pneumothorax. IMPRESSION: Left subclavian pacer identified. Reviewed, Interpreted and Dictated by Fritz Houser III, MD Transcribed by Tegan Levin Authenticated and [facility]
--- NOTE | 2024-08-11 15:10 | HMH.PTEV ---
Physical Therapy Evaluation Rehab PT IP Evaluation Start: 08/11/24 14:34 Freq: ONCE Status: Active Protocol: Document 08/11/24 15:05 NINFA (Rec: 08/11/24 15:10 NINFA [id number]) Subjective/History History History Pt is an 88 y/o male who presents s/p pacemaker placement 08/11/24. Subjective Subjective Pt reports he lives alone in a single story home with 0 BRANDY. Pt usually uses a cane for IND mobility. Pt still driving . Reports hx of falls d/t dizziness. Has family that can stay with him if needed. New diagnosis of cancer in past 12 No months? Rehab PT IP Eval Objective Appearance Patient Behavior Appropriate,Cooperative Patient Orientation Person,Place,Situation Difficulty following instructions none Speech Pattern Clear Ambulation Patient Able to Ambulate Yes Ambulation Observation IP General Gait Pattern Observation No Deviations/Normal Ambulation Distance (feet) 40 Ambulation Assistive Device Rolling Walker Ambulation Ability Supervision/Stand by Balance Ability to Arise Able, uses arms to help Sitting Balance Steady, safe Standing Balance Steady, wide stance Dynamic Sitting Balance Ability Good Dynamic Standing Balance Ability Good Transfers Bed Transfer Ability Independent Sit to Stand Bed Transfer Ability Supervision/Stand by Rehab PT IP prob,goals,plan Problems Date of Evaluation: 08/11/24 Discharge Plan PT Discharge Plan Pt safe to d/c home d/t IND mobility level. Pt would benefit from RW. Pt's family to check in on him daily. Pt not appropriate for skilled acute care PT d/t pt being IND -SUP with his mobility. Eval Complexity Eval Charge Codes 18945 - Moderate Complexity PHYSICIAN CERTIFICATION: I certify the specified therapy services for Garfield Berman are required, authorized, and reviewed every 30 days.
[2024-08-11] MEDS: ACETAMINOPHEN 325MG TAB 650 MG PO (15:25)
[2024-08-11 15:45] LABS: Troponin I 0.04 ng/ml (0.00-0.034)
--- NOTE | 2024-08-11 16:01 | P.HPDS_ITS ---
General Admission date:: 08/11/24 *Admission Date: 08/11/24 *Chief complaint: Symptomatic bradycardia *History of present illness: Garfield Berman is a 88-year-old male with a medical history significant for paroxysmal A-fib s/p cardioversion and Watchman device, hypertension, CAD, hypothyroidism, CKD stage III who presents with a fall at home. He states he felt weak and fell to the left over the TV stand hurting his left torso. On arr ival, patient's heart rate was in the 30s but patient was otherwise comfortable, conversational. Dr. Love was contacted and recommended a pacemaker for symptomatic bradycardia. Of note, patient had been taken off diltiazem due to bradycardia in the past which improved. Case discussed with ED provider and decision was made to admit patient for symptomatic bradycardia and fall. [facility] Disclaimer: The information contained in this section may have been updated after the patient was seen, as this information can be updated by other users. Medical History On amiodarone therapy Bradycardia JVD (jugular venous distension) Atrial fibrillation with RVR Presence of Watchman left atrial appendage closure device Rectal bleeding LV dysfunction Abdominal aortic aneurysm (AAA) Atrial fibrillation HLD (hyperlipidemia) HHD (hypertensive heart disease) CAD (coronary artery disease) Surgical History Stented coronary artery Family History Other Family history of diabetes mellitus type II Social History (Updated 08/11/24 @ 14:27 by Flores Borges RN) Smoking Status: Unknown if ever smoked second hand exposure: No alcohol intake: never substance use type: denies use current occupational status: retired Travel in the last 8 weeks: None household members: none housing: house lives independently: Yes marital status: education level: high school service: Yes ([email or web address]) current occupational exposures/hazards: No caffeine: No do you feel safe at home: Yes victim of physical abuse: No victim of emotional abuse: No victim of sexual abuse: No would you like helpful sources: No Other Medical History Have you received the Flu Vaccine for this season: Yes Have you received the Pneumonia Vaccine: Yes Review of Systems ENT Ears, Nose, Mouth, and Throat: Reports abnormal hearing *Neurologic Neurologic: Reports abnormal hearing Exam Data for Last 24 hours Vital signs and Labs for Last 24 Hours: Temp Pulse Resp BP Pulse Ox O2 Del Method 98.0 F 72 16 197/91 H 97 Room Air 08/11/24 14:15 08/11/24 15:45 08/11/24 15:45 08/11/24 15:45 08/11/24 15:45 08/11/24 15:45 Laboratory Results - last 24 hr 08/11/24 08:40: WBC 10.0, RBC 4.67, Hgb 15.2, Hct 44.6, MCV 95.6 H, MCH 32.5 H, MCHC 34.0, RDW 14.6, Plt Count 206, MPV 7.6, Neut % (Auto) 86.4 H, Lymph % (Auto) 7.5 L, [place] % (Auto) 4.8, Eos % (Auto) 1.0, Baso % (Auto) 0.3, Neut # (Auto) 8.6 H, Lymph # (Auto) 0.8, [place] # (Auto) 0.5, Eos # (Auto) 0.1, Baso # (Auto) 0.0, Total Counted 100, Neutrophils % (Manual) 83 H, Lymphocytes % (Manual) 14, Monocytes % (Manual) 2, Eosinophils % (Manual) 1, Platelet Estimate Normal, RBC Morphology Normal, PT 11.6, INR 1.04, APTT 26.3, Sodium 146 H, Potassium 3.6, Chloride 107, Carbon Dioxide 30, Anion Gap 12.6, BUN 28 H, Creatinine 1.30 H, Estimated Creat Clear 46, Estimated GFR 52 L, Est GFR ( Amer) 63, Glucose 104 H, Calcium 9.9, Magnesium 2.1, Total Bilirubin 0.7, AST 55, ALT 55, Alkaline Phosphatase 175 H, Troponin I 0.03, NT-Pro-B Natriuret Pep 1430 H, Total Protein 7.7, Albumin 4.6, Globulin 3.1, Albumin/Globulin Ratio 1.5, TSH 7.82 H D, HIV 1&2 Antibody Rapid Nonreactive 08/11/24 11:48: Troponin I 0.03 08/11/24 15:15: Troponin I 0.04 H I & O for Last 24 hours: Intake & Output 08/08/24 08/09/24 08/10/24 08/11/24 23:59 23:59 23:59 23:59 Weight 79.379 kg Constitutional Constitutional: no acute distress *Routine HEENT Exam Head: Present normocephalic Eye: Present EOMI and PERRL ENT: Present mucous membranes moist *Routine Neck Exam Neck: Present supple; Absent lymphadenopathy *Routine Respiratory Exam Respiratory: Present CTA bilaterally *Routine Cardiovascular Exam Cardiovascular: Present RRR *Routine Abdominal Exam Abdominal: Present soft and normoactive bowel sounds; Absent tenderness *Routine Rectal Exam Rectal:: deferred *Routine Genitalia Exam Genitalia:: deferred *Routine Extremities Exam Extremities: Absent cyanosis, clubbing or edema *Routine Skin Exam Skin: Present warm; Absent rash *Routine Neurological Exam Neurological: Present alert Meds Home Medications and Allergies Home Medications ?Medication ?Instructions ?Recorded ?Confirmed ?Type vmyaqktugqxj-bfnzxxzd-zdmhio tablet 1 tab PO DAILY 04/28/18 08/11/24 History atorvastatin 40 mg tablet 40 mg PO HS 11/11/22 08/11/24 History Lactobacillus rhamnosus-Bifidobac. 1 cap PO DAILY 12/19/22 08/11/24 History animalis 3 billion cell capsule ([employer]) furosemide 40 mg tablet (Lasix) 40 mg PO DAILY #30 tabs 05/21/24 08/11/24 Rx amiodarone 200 mg tablet 200 mg PO DAILY #30 tabs 06/24/24 08/11/24 Rx clopidogrel 75 mg tablet 75 mg PO DAILY 90 days #90 tabs 06/29/24 08/11/24 Rx bisoprolol fumarate 10 mg tablet 10 mg PO DAILY 08/11/24 08/11/24 History levothyroxine 100 mcg tablet 112 mcg (1.12 x 100 mcg) PO DAILY 08/11/24 08/11/24 Rx 30 days #0 tabs New Prescriptions to Start Prescriptions: Allergies Allergy/AdvReac Type Severity Reaction Status Date / Time No Known Allergies Allergy Verified 08/09/24 13:14 Hospital Course Hospital Course Hospital Course: Garfield Berman is a 88-year-old male with a medical history significant for paroxysmal A-fib s/p cardioversion and Watchman device, hypertension, CAD, hypothyroidism, CKD stage III who presents with a fall at home. He states he felt weak and fell to the left over the TV stand hurting his left torso. On arrival, patient's heart rate was in the 30s but patient was otherwise comfortable, conversational. Dr. Love was contacted and recommended a pacemaker for symptomatic bradycardia. Of note, patient had been taken off diltiazem due to bradycardia in the past which improved. Case discussed with ED provider and decision was made to admit patient for symptomatic bradycardia and fall. #Symptomatic bradycardia ? S/p permanent pacemaker 08/11/2024. Patient is currently pacing at 72 bpm. Vital stable. Stable, comfortable. ? ECHO shows normal biventricular function. ? Medically stable for discharge. Will follow-up with cardiology within 1 week. #Fall ? CT head, CXR, CT cervical spine did not show acute remarkable findings. ? PT consulted, recommended rolling walker on discharge. DME prescription has been sent. #Paroxysmal A-fib ? Continue home amiodarone, bisoprolol. #Hypertension #CAD ? Continue home Plavix, bisoprolol, atorvastatin, Lasix. #Hypothyroidism ? TSH elevated to 7.82. ? Increased home levothyroxine from 100 to 112 mcg. ? Will need repeat TFTs outpatient. Results Data Completed and Pending Labs on day of discharge: Labs from last 24 hours 08/11/24 08/11/24 08/11/24 15:15 11:48 08:40 WBC 10.0 RBC 4.67 Hgb 15.2 Hct 44.6 MCV 95.6 H MCH 32.5 H MCHC 34.0 RDW 14.6 Plt Count 206 MPV 7.6 Neut % (Auto) 86.4 H Lymph % (Auto) 7.5 L [place] % (Auto) 4.8 Eos % (Auto) 1.0 Baso % (Auto) 0.3 Neut # (Auto) 8.6 H Lymph # (Auto) 0.8 [place] # (Auto) 0.5 Eos # (Auto) 0.1 Baso # (Auto) 0.0 Total Counted 100 Neutrophils % (Manual) 83 H Lymphocytes % (Manual) 14 Monocytes % (Manual) 2 Eosinophils % (Manual) 1 Platelet Estimate Normal RBC Morphology Normal PT 11.6 INR 1.04 APTT 26.3 Sodium 146 H Potassium 3.6 Chloride 107 Carbon Dioxide 30 Anion Gap 12.6 BUN 28 H Creatinine 1.30 H Estimated Creat Clear 46 Estimated GFR 52 L Est GFR ( Amer) 63 Glucose 104 H Calcium 9.9 Magnesium 2.1 Total Bilirubin 0.7 AST 55 ALT 55 Alkaline Phosphatase 175 H Troponin I 0.04 H 0.03 0.03 NT-Pro-B Natriuret Pep 1430 H Total Protein 7.7 Albumin 4.6 Globulin 3.1 Albumin/Globulin Ratio 1.5 TSH 7.82 H D HIV 1&2 Antibody Rapid Nonreactive DS: Diagnosis Discharge Diagnosis (1) Symptomatic bradycardia: Status: Acute Code(s): R00.1 - Bradycardia, unspecified (2) Syncope and collapse: Status: Acute Code(s): R55 - Syncope and collapse (3) Avulsion of forehead: Status: Acute Code(s): S01.80XA - Unspecified open wound of other part of head, initial encounter (4) On amiodarone therapy: Status: Acute Code(s): Z79.899 - Other [place] (current[facility] drug therapy (5) Atrial fibrillation: Status: Chronic Code(s): I48.91 - Unspecified atrial fibrillation Qualifiers: Atrial fibrillation type: chronic Qualified Code(s): I48.2 - Chronic at rial fibrillation (6) CAD (coronary artery disease): Status: Chronic Code(s): I25.10 - Atherosclerotic heart disease of [place] coronary artery without angina pectoris Qualifiers: Coronary Disease-Associated Artery/Lesion type: [place] artery [place] vs. transplanted heart: [place] heart Associated angina: without angina Qualified Code(s): I25.10 - Atherosclerotic heart disease of [place] coronary artery without angina pectoris (7) Presence of Watchman left atrial appendage closure device: Status: Acute Code(s): Z95.818 - Presence of other cardiac implants and grafts Discharge Plan Disposition Patient Disposition: Home, Self-Care Discharge Order Discharge Orders: Discharge Order (Routine); Ordered 08/11/24 Ordered By: Van Stoll Follow up Plan Follow up with: Fidelia Cheung MD [Primary Care Provider] - 08/18/24 9:45 am Clifton Love MD [Staff Physician] - 08/18/24 10:45 am Prescriptions/Medication Reconciliation: Continued hfqnjcrrsvys-piumvwul-ngxdwz tablet 1 tab PO DAILY [employer] 3 billion cell capsule 1 cap PO DAILY amiodarone 200 mg tablet 200 mg PO DAILY Qty: 30 5RF furosemide [Lasix] 40 mg tablet 40 mg PO DAILY Qty: 30 5RF clopidogrel 75 mg tablet 75 mg PO DAILY 90 Days Qty: 90 3RF bisoprolol fumarate 10 mg tablet 10 mg PO DAILY atorvastatin 40 mg tablet 40 mg PO HS Changed levothyroxine 100 mcg tablet 112 mcg PO DAILY 30 Days Qty: 0 0RF Problem Reconciliation Problems Reviewed?: Yes Patient Discharge Instructions Patient Instructions: DI for Sick Sinus Syndrome, DI for Pacemaker Insertion, DI for Surgical Site Infection Print Language: Ma[place] Providers Primary Care Provider: Fidelia Cheung Admit Provider: Van Stoll Attending Provider: Van Stoll
--- NOTE | 2024-08-11 16:19 | PC.NURSE ---
patient is unable to ambulate well enough with a standard cane. will need a rolling walker to ambulate.
[2024-08-11] MEDS: AMIODARONE 200MG TABLET 200 MG PO (16:30)
[2024-08-11] MEDS: LEVOTHYROXINE 100MCG (0.1MG) TAB 100 MCG PO (16:31)
[2024-08-11] MEDS: CLOPIDOGREL 75MG TAB 75 MG PO (16:31)
[2024-08-11] MEDS: FUROSEMIDE 40 MG TABLET PO (16:31)
[2024-08-11] MEDS: BISOPROLOL 5MG TABLET 10 MG PO (16:33)
[2024-08-11] MEDS: HYDRALAZINE 20MG/ML VIAL 10 MG IV (17:08)
--- NOTE | 2024-08-11 18:02 | PC.NURSE ---
patients blood pressure was 191/81 at 1500, MD notified, treated per NOV. blood pressure upon d/c is 185/90, heart rate 72.
--- NOTE | 2024-08-11 18:05 | PC.NURSE ---
patients blood pressure at 1500 was 191/81, notified, treated per NOV. blood pressure was still elevated after re assessing 15 mins later, notified, treated per NOV. BP upon d/c was 183/90, aware.
[2024-08-12 06:15] LABS: HCV Ab Non Reactive (Non Reactive)
--- NOTE | 2024-08-13 11:48 | SW/DCPLANNER ---
Spoke with patient's daughter on the phone. Patient's daughter stated that her father is doing very well. Patient's daughter stated that they are aware of upcoming appointments and was able to get his medicine filled. Patient's daughter stated they have no concerns or questions at the time. Toya Plata
== END 2024-08-11 18:01 | disposition home or self-care (01) ==
LOC: ER 08:54 → 2ND 10:38
PROVIDERS: Internal Medicine; Admitting Provider Student in an Organized Health Care Education/Training Program; Emergency Provider Student in an Organized Health Care Education/Training Program; PCP Family Medicine; Visit Provider Student in an Organized Health Care Education/Training Program
DX: I49.5 Sick sinus syndrome (principal); I12.9 Hypertensive chronic kidney disease with stage 1 through stage 4 chronic kidney disease, or unspecified chronic kidney disease; I35.0 Nonrheumatic aortic (valve) stenosis; I25.10 Atherosclerotic heart disease of native coronary artery without angina pectoris; N18.30 Chronic kidney disease, stage 3 unspecified; R00.1 Bradycardia, unspecified; R06.00 Dyspnea, unspecified; I65.23 Occlusion and stenosis of bilateral carotid arteries; E78.2 Mixed hyperlipidemia; I48.0 Paroxysmal atrial fibrillation; Z95.818 Presence of other cardiac implants and grafts; S00.81XA Abrasion of other part of head, initial encounter; W01.190A Fall on same level from slipping, tripping and stumbling with subsequent striking against furniture, initial encounter; Y92.018 Other place in single-family (private) house as the place of occurrence of the external cause; Z79.899 Other long term (current) drug therapy; I27.20 Pulmonary hypertension, unspecified
CPT/HCPCS: 33208; 36415; 70450; 71045; 72125; 80048; 80053; 80061; 80076; 83735; 83880; 84439; 84443; 84484; 85007; 85025; 85027; 85610; 85730; 86803; 87389; 93005; 93306; 97162; 99291; C1785; C1898; G0378; J0360; J7030

== ENCOUNTER 2024-10-25 10:08 | Outpatient (CLI) | payer MEDICARE, BC, SELFPAY ==
[2024-10-25 14:20] LABS: Triiodothryronine (T3) Uptake 36 % (23.5-40.5)
[2024-10-25 14:21] LABS: Free Thyroxine Index 4.3 ug/dL (5.93-13.13)
[2024-10-25 14:34] LABS: Thyroid Stimulating Hormone 2.91 uIU/mL (0.465-4.68)
== END 2024-10-25 23:59 | disposition home or self-care (01) ==
LOC: LAB 10:10
PROVIDERS: PCP Family Medicine; Visit Provider Physician Assistant
DX: Z79.899 Other long term (current) drug therapy (principal)
CPT/HCPCS: 36415; 84436; 84443; 84479